=== PATIENT | female | born 1990 | race African-American/Black ===

== ENCOUNTER 2016-09-19 18:34 | Inpatient (IN) | payer MEDICAID ==
[~2016-09-19] VITALS: Ht 162.6 cm; Wt 50.0 kg
[~2016-09-19 18:34] MED LIST: CEPH-460 PO; IBUP-232 PO; NORC5TAB PO
[2016-09-19 18:37] VITALS: BP 100/66; PULSE 99; RESP 20; TEMP 98.1; O2SAT 98
[2016-09-19 18:45] VITALS: BP 112/67; PULSE 98; RESP 20; O2SAT 99
[2016-09-19] MEDS ORDERED: IBUP800T23 PO (18:48)
[2016-09-19] MEDS ORDERED: SODIUM CHLOR 0.9% 1000 ML INJ 1,000 ML IV SCH (19:17)
[2016-09-19] MEDS ORDERED: ONDANSETRON HCL 4 MG/2 ML VIAL IVP ONE (19:30)
[2016-09-19] MEDS ORDERED: MORPHINE SULFATE 8 MG/ML INJ IV PUSH ONE (19:30)
--- NOTE | 2016-09-19 19:41 | PD ---
HPI Chief Complaint: Complaint Time Seen by Provider: 19:15 Travel History International Travel<30 days: No Contact w/Intl Traveler<30days: No Traveled to known affect area: No History of Present Illness HPI Patient's 25-year-old female with a known history of left-sided 1.7 cm left renal calculi and a small bladder stone presenting with left abdominal pain. She states she had a stent placed by a urologist 2008 and form an emergency room and told her that the stent was "broke". She was only seen here in August 27, 2016 and had significant hydronephrosis left kidney and urinalysis suggestive of UTI. She was given ceftriaxone and recommended admission however the patient signed out AMA. She is continue to have pain which has worsened over the last several weeks. She says sometimes there is a "knot" she can palpate in the left abdomen. She has nausea with no vomiting. The pain is in the left flank and radiates down to the pelvis. She endorses hematuria, denies any change in urine stream. She denies any increased urgency or frequency or dysuria. Culture was contaminants, she did finish the Keflex prescribed. She endorses constipation but has had 2 bowel movements today. She denies any fever. Denies vaginal bleeding or discharge. She denies secondary to Depo-Provera. PFSH Past Medical History Arthritis: No Cancer: No Cardiovascular Problems: No Diabetes: No Diminished Hearing: No Endocrine: No Gastrointestinal Disorders: No Genitourinary: Yes (kidney stent, UTI) Immune Disorder: No Implanted Vascular Access Dvce: No Kidney Stones: Yes (HAS A STENT) Musculoskeletal: No Neurologic: No Psychiatric: No Reproductive: No Respiratory: No Seizures: No Thyroid Disease: No Ulcer: No Tetanus Vaccination: < 5 Years Influenza Vaccination: No ?: Not : 5 Para: 4 Miscarriage: 1 : 0 Dilation and Curettage (D&C): Yes Past Surgical History Abdominal Surgery: No Cardiac Surgery: No Ear Surgery: No Endocrine Surgery: No Eye Surgery: No Genitourinary Surgery: Yes (stent kidney 2008) Gynecologic Surgery: Yes Oral Surgery: No Thoracic Surgery: No Other Surgery: Yes (STENT IN LEFT KIDNEY IN 2008) Social History Alcohol Use: No Tobacco Use: Yes (1/2 ppd ) Substance Use: Yes (MARIJUANA ) Allergies-Medications (Allergen,Severity, Reaction): Coded Allergies: [place] (Verified Allergy, Severe, "THROAT SWELLS; DIFFICULTY BREATHING", ) Reported Meds & Prescriptions Reported Meds & Active Scripts Active [place] (Hydrocodone-Acetaminophen) 5-325 mg Tab 1 Tab PO Q6H PRN Reported Ibuprofen 800 Mg Tab 800 Mg PO Q6HR PRN Review of Systems Except as stated in HPI: all other systems reviewed are Neg Physical Exam Narrative GENERAL: Well-developed and well-nourished adult female in no acute distress. SKIN: Warm and dry. Good turgor without tenting. HEAD: Normocephalic and atraumatic. EYES: PERRL bilaterally, 5mm. EOMI bilaterally. No injection or icterus present. No proptosis. Lids without edema or erythema. ENT: Buccal mucosa pink and moist. Oropharynx free of erythema, tonsillar hypertrophy, masses, swelling, asymmetry and exudates. Uvula midline and airway patent. NECK: Supple, no midline tenderness, crepitus or step-offs. Trachea midline, no JVD. No cervical or facial lymphadenopathy. CARDIOVASCULAR: Regular rate and rhythm without murmurs, rubs, clicks or gallops. Radial and posterior tibial pulses 2+ bilaterally. No pedal edema. RESPIRATORY: Clear to auscultation bilaterally with symmetrical rise and fall, no distress or use of accessory muscles. GASTROINTESTINAL: Scaphoid. Moderate pain with palpation of the whole left side abdomen without rebounding or guarding. There is a palpable linear area of induration throughout the mid abdomen on the left. Nonpulsatile. Normal bowel sounds all 4 quadrants. No masses or organomegaly present. Left-sided CVA tenderness. MUSCULOSKELETAL: Patient freely moving all four extremities spontaneously. Extremities without clubbing, cyanosis, or edema. No obvious deformities. NEUROLOGIC: CN II-XII grossly intact. Awake and alert. Motor grossly within normal limits. Normal speech. PSYCHIATRIC: Appropriate mood and affect; insight and judgment normal. Data Data Last Documented VS Vital Signs Date Time Temp Pulse Resp B/P Pulse Ox O2 Delivery O2 Flow Rate FiO2 09/19/16 20:20 65 16 108/74 99 Room Air 09/19/16 18:37 98.1 Orders Ed Urine Pregnancytest Poc (09/19/16 18:55) Complete Blood Count With Diff (09/19/16 19:17) Comprehensive Metabolic Panel (09/19/16 19:17) Lipase (09/19/16 19:17) Prothrombin Time / Inr (Pt) (09/19/16 19:17) Act Partial Throm Time (Ptt) (09/19/16 19:17) Urinalysis - C+S If Indicated (09/19/16 19:17) Ondansetron Inj (Zofran Inj) (09/19/16 19:30) Sodium Chlor 0.9% 1000 Ml Inj (Ns 1000 M (09/19/16 19:17) Morphine Inj (Morphine Inj) (09/19/16 19:30) Ct Abd/Pel W/O Iv Contrast (09/19/16 19:22) Urine Culture (09/19/16 19:25) Ceftriaxone Inj (Rocephin Inj) (09/19/16 20:00) NPO (09/19/16 20:14) Admit To Inpatient (09/19/16 ) Vital Signs (Adult) Q4H (09/19/16 20:43) Activity Oob With Assistance (09/19/16 20:43) ^ Manager Center / Telemetry .CONTINUOUS (09/19/16 20:43) Diet Npo (09/20/16 Breakfast) Sodium Chlor 0.9% 1000 Ml Inj (Ns 1000 M (09/19/16 20:43) Sodium Chloride 0.9% Flush (Ns Flush) (09/19/16 20:45) Sodium Chloride 0.9% Flush (Ns Flush) (09/19/16 21:00) Ondansetron Inj (Zofran Inj) (09/19/16 20:45) Basic Metabolic Panel (Bmp) (09/20/16 06:00) Complete Blood Count With Diff (09/20/16 06:00) Scd Bilateral/Knee High JUAN PABLO.BID (09/19/16 20:43) Naloxone Inj (Narcan Inj) (09/19/16 20:45) Inpatient Certification (09/19/16 ) Morphine Inj (Morphine Inj) (09/19/16 20:45) Admit Order (Ed Use Only) (09/19/16 20:43) Consult Urology (09/19/16 ) Invasive Rad Dept Consult (09/19/16 ) Labs Laboratory Tests Test 09/19/16 19:25 White Blood Count 5.3 TH/MM3 Red Blood Count 4.72 MIL/MM3 Hemoglobin 12.7 GM/DL Hematocrit 39.3 % Mean Corpuscular Volume 83.3 FL Mean Corpuscular Hemoglobin 26.9 PG Mean Corpuscular Hemoglobin 32.3 % Concent Red Cell Distribution Width 17.3 % Platelet Count 242 TH/MM3 Mean Platelet Volume 9.1 FL Neutrophils (%) (Auto) 35.9 % Lymphocytes (%) (Auto) 50.8 % Monocytes (%) (Auto) 8.5 % Eosinophils (%) (Auto) 4.3 % Basophils (%) (Auto) 0.5 % Neutrophils # (Auto) 1.9 TH/MM3 Lymphocytes # (Auto) 2.7 TH/MM3 Monocytes # (Auto) 0.5 TH/MM3 Eosinophils # (Auto) 0.2 TH/MM3 Basophils # (Auto) 0.0 TH/MM3 CBC Comment DIFF FINAL Differential Comment Prothrombin Time 12.0 SEC Prothromb Time International 1.1 RATIO Ratio Activated Partial 27.2 SEC Thromboplast Time Urine Color RED Urine Turbidity CLOUDY Urine pH 6.5 Urine Specific [place] 1.020 Urine Protein 100 mg/dL Urine Glucose (UA) NEG mg/dL Urine Ketones TRACE mg/dL Urine Occult Blood MOD Urine Nitrite NEG Urine Bilirubin NEG Urine Urobilinogen LESS THAN 2.0 MG/DL Urine Leukocyte Esterase LARGE Urine RBC /hpf Urine WBC /hpf Urine WBC Clumps MANY Urine Bacteria OCC /hpf Urine Mucus MANY /lpf Microscopic Urinalysis Comment CULTURE INDICATED Sodium Level 139 MEQ/L Potassium Level 4.1 MEQ/L Chloride Level 108 MEQ/L Carbon Dioxide Level 20.7 MEQ/L Anion Gap 10 MEQ/L Blood Urea Nitrogen 14 MG/DL Creatinine 0.94 MG/DL Estimat Glomerular Filtration 88 ML/MIN Rate Random Glucose 77 MG/DL Calcium Level 8.9 MG/DL Total Bilirubin 0.3 MG/DL Aspartate Amino Transf 11 U/L (AST/SGOT) Alanine Aminotransferase 15 U/L (ALT/SGPT) Alkaline Phosphatase 47 U/L Total Protein 8.4 GM/DL Albumin 4.1 GM/DL Lipase 133 U/L MDM Medical Decision Making Medical Screen Exam Complete: Yes Emergency Medical Condition: Yes Interpretation(s) Laboratory Tests Test 09/19/16 19:25 White Blood Count 5.3 TH/MM3 (4.0-11.0) Red Blood Count 4.72 MIL/MM3 (4.00-5.30) Hemoglobin 12.7 GM/DL (11.6-15.3) Hematocrit 39.3 % (35.0-46.0) Mean Corpuscular Volume 83.3 FL (80.0-100.0) Mean Corpuscular Hemoglobin 26.9 PG (27.0-34.0) Mean Corpuscular Hemoglobin 32.3 % Concent (32.0-36.0) Red Cell Distribution Width 17.3 % (11.6-17.2) Platelet Count 242 TH/MM3 (150-450) Mean Platelet Volume 9.1 FL (7.0-11.0) Neutrophils (%) (Auto) 35.9 % (16.0-70.0) Lymphocytes (%) (Auto) 50.8 % (9.0-44.0) Monocytes (%) (Auto) 8.5 % (0.0-8.0) Eosinophils (%) (Auto) 4.3 % (0.0-4.0) Basophils (%) (Auto) 0.5 % (0.0-2.0) Neutrophils # (Auto) 1.9 TH/MM3 (1.8-7.7) Lymphocytes # (Auto) 2.7 TH/MM3 (1.0-4.8) Monocytes # (Auto) 0.5 TH/MM3 (0-0.9) Eosinophils # (Auto) 0.2 TH/MM3 (0-0.4) Basophils # (Auto) 0.0 TH/MM3 (0-0.2) CBC Comment DIFF FINAL Differential Comment Prothrombin Time 12.0 SEC (9.8-11.6) Prothromb Time International 1.1 RATIO Ratio Activated Partial 27.2 SEC Thromboplast Time (24.3-30.1) Urine Color RED (YELLW/STRAW) Urine Turbidity CLOUDY (CLEAR) Urine pH 6.5 (5.0-8.5) Urine Specific [place] 1.020 (1.002-1.035) Urine Protein 100 mg/dL (NEG-TRACE) Urine Glucose (UA) NEG mg/dL (NEG) Urine Ketones TRACE mg/dL (NEG) Urine Occult Blood MOD (NEG) Urine Nitrite NEG (NEG) Urine Bilirubin NEG (NEG) Urine Urobilinogen LESS THAN 2.0 MG/DL (LESS THAN 2.0) Urine Leukocyte Esterase LARGE (NEG) Urine RBC /hpf (0-3) Urine WBC /hpf (0-5) Urine WBC Clumps MANY (NONE) Urine Bacteria OCC /hpf (NONE) Urine Mucus MANY /lpf (OCC) Microscopic Urinalysis Comment CULTURE INDICATED Sodium Level 139 MEQ/L (136-145) Potassium Level 4.1 MEQ/L (3.5-5.1) Chloride Level 108 MEQ/L (98-107) Carbon Dioxide Level 20.7 MEQ/L (21.0-32.0) Anion Gap 10 MEQ/L (5-15) Blood Urea Nitrogen 14 MG/DL (7-18) Creatinine 0.94 MG/DL (0.50-1.00) Estimat Glomerular Filtration 88 ML/MIN (>89) Rate Random Glucose 77 MG/DL (74-106) Calcium Level 8.9 MG/DL (8.5-10.1) Total Bilirubin 0.3 MG/DL (0.2-1.0) Aspartate Amino Transf 11 U/L (15-37) (AST/SGOT) Alanine Aminotransferase 15 U/L (10-53) (ALT/SGPT) Alkaline Phosphatase 47 U/L (45-117) Total Protein 8.4 GM/DL (6.4-8.2) Albumin 4.1 GM/DL (3.4-5.0) Lipase 133 U/L (73-393) Last 24 hours Impressions Abdomen/Pelvis CT 09/19/161921 Signed Impressions: Service Date/Time: Monday, September 19, 2016 19:35 - CONCLUSION: 1. Severe left hydronephrosis, not new. 2. Large stones of the left renal pelvis and the urinary bladder as above, probably adherent/caked onto the proximal and distal portions of the left ureteral stent. 3. Small nonobstructing stones left lower pole. 4. No evidence of acute obstructive uropathy on the right. 5. Numerous small stones of the gallbladder without evidence of cholecystitis or biliary obstruction. Vincent Sparks MD Differential Diagnosis Hydronephrosis versus pyelonephritis versus abscess versus renal cysts versus medical information officer function Narrative Course Patient's 25-year-old female with history of renal calculi. Stent placement 2008 on the left. She's been having pain and difficulty since beginning of August. Outside emergency department told her the stent was "broke". She was seen here on 03/[address] showed 1.7 cm stone in the left renal pelvis adjacent to the stent but there was significant hydronephrotic sac in the left kidney. There is also a 3 cm stone in the bladder. Patient left AMA has had significant discomfort since, worsening over the last few weeks. She is afebrile and nontoxic. She reports a "knot" in the left side of her abdomen which is palpable. Patient given morphine, Zofran and 1 L normal saline bolus and ordered labs and CT abdomen and pelvis. Urine negative patient is on Depo-Provera. CBC shows WBC of 5.3. Urinalysis shows to be BCs with clumps, large blood and leukocyte esterase. Given ceftriaxone 1 g. Metabolic panel shows chloride 108, bicarbonate 20.7, anion gap 10, creatinine 0.94, protein 8.4. CT shows severe left hydronephrosis and hydroureter. There are large stones left renal pelvis but a 15 x 8 mm. There is a stone in the bladder that is 32 x 17 mm. Call was placed to Dr. Galvin urology who reviewed the scan and states that the parenchyma as a poor appearance and given the amount of time she's had this distended that she needs percutaneous drainage. Patient is made nothing by mouth and ordered the IR consult. Call was placed to Dr. Klein for admission for severe hydronephrosis/instruction and pyelonephritis. Diagnosis Primary Impression: Hydronephrosis of left kidney Additional Impression: Pyelonephritis Admitting Information Admitting Physician Requests: Admit Condition: Stable Vincent Martin III Sep 19, 2016 19:41
[2016-09-19 19:47] LABS: AUTOMATED NEUTROPHIL # 1.9 TH/MM3 (1.8-7.7); BASOPHIL % 0.5 % (0.0-2.0); EOSINOPHIL # 0.2 TH/MM3 (0-0.4); EOSINOPHIL % 4.3 % (0.0-4.0); HEMATOCRIT 39.3 % (35.0-46.0); HEMO FLAGS DIFF FINAL; LYMPH % 50.8 % (9.0-44.0); LYMPHOCYTE # 2.7 TH/MM3 (1.0-4.8); MEAN CELL VOLUME 83.3 FL (80.0-100.0); MEAN CORPUSCULAR HEMOGLOBIN 26.9 PG (27.0-34.0); MEAN CORPUSCULAR HGB CONC 32.3 % (32.0-36.0); MONO % 8.5 % (0.0-8.0); NEUT % 35.9 % (16.0-70.0); PLATELET COUNT 242 TH/MM3 (150-450); RED BLOOD COUNT 4.72 MIL/MM3 (4.00-5.30); RED CELL DISTRIBUTION WIDTH 17.3 % (11.6-17.2); WHITE BLOOD COUNT 5.3 TH/MM3 (4.0-11.0)
[2016-09-19 19:48] LABS: BACTERIA, URINE OCC /hpf; BLOOD, URINE MOD (NEG); COMMENT (UR) CULTURE INDICATED; CULTURE IF INDICATED CULTURE INDICATED; GLUCOSE,URINE NEG (NEG); KETONE, URINE TRACE mg/dL (NEG); MUCUS URINE MANY /lpf (OCC); NITRITE,URINE NEG (NEG); PH, URINE 6.5 (5.0-8.5)
[2016-09-19 19:49] LABS: URINE COLOR RED (YELLW/STRAW)
[2016-09-19 19:55] LABS: APTT (PATIENT) 27.2 SEC (24.3-30.1); INTERNATIONAL NORMALIZED RATIO 1.1 RATIO
--- NOTE | 2016-09-19 19:57 | RADRPT ---
EXAM DATE/TIME: 09/19/2016 19:35 [facility] COMPARISON: CT ABDOMEN & PELVIS W/O CONTRAST, August 27, 2016, 22:17. INDICATIONS : Left-sided flank pain. ORAL CONTRAST: No oral contrast ingested. RADIATION DOSE: 2.82 CTDIvol (mGy) MEDICAL HISTORY : Renal calculi. SURGICAL HISTORY : Left renal stent. ENCOUNTER: Initial ACUITY: 1 day PAIN SCALE: 7/10 LOCATION: Left flank TECHNIQUE: Volumetric scanning of the abdomen and pelvis was performed. Using automated exposure control and ad justment of the mA and/or kV according to patient size, radiation dose was kept as low as reasonably achievable to obtain optimal diagnostic quality images. FINDINGS: There is severe but not significantly changed left hydronephrosis and hydroureter. A left ureteral st ent is present. There are calcifications in the renal pelvis and in the urinary bladder that are prob ably adherent to the pigtail portions of the stent. The renal pelvis calculus is about 8 x 15 mm. The urinary bladder calculus is about 17 x 32 mm. There is an approximately 6 mm stone or conglomerate o f tiny stones in the lower pole of the left kidney. Numerous gravel like stones are again seen in the gallbladder. No duct stone or ductal dilatation. No inflammatory changes. Noncontrast appearance of the liver, spleen, pancreas, adrenal glands and right kidney within normal limits. No obstruction or acute inflammatory changes are seen in the gastrointestinal tract. Visualized lung bases are clear. CONCLUSION: 1. Severe left hydronephrosis, not new. 2. Large stones of the left renal pelvis and the urinary bladder as above, probably adherent/caked on to the proximal and distal portions of the left ureteral stent. 3. Small nonobstructing stones left lower pole. 4. No evidence of acute obstructive uropathy on the right. 5. Numerous small stones of the gallbladder without evidence of cholecystitis or biliary obstruction. Vincent Sparks MD on September 19, 2016 at 19:52 Board Certified Radiologist. This report was verified electronically.
[2016-09-19] MEDS ORDERED: cefTRIAXone INJ 1,000 MG in SODIUM CHLORIDE 0.9% INJ 100 ML IV ONE (20:00)
[2016-09-19 20:08] LABS: ANION GAP 10 MEQ/L (5-15); AST (GOT) 11 U/L (15-37); BICARBONATE 20.7 MEQ/L (21.0-32.0); BLOOD UREA NITROGEN 14 MG/DL (7-18); CHLORIDE 108 MEQ/L (98-107); GLOMERULAR FILTRATION RATE 88 ML/MIN (>89); POTASSIUM 4.1 MEQ/L (3.5-5.1); SODIUM (NA) 139 MEQ/L (136-145)
[2016-09-19 20:12] LABS: ALKALINE PHOSPHATASE 47 U/L (45-117); ALT (GPT) 15 U/L (10-53); TOTAL BILIRUBIN ADULT 0.3 MG/DL (0.2-1.0)
[2016-09-19 20:20] VITALS: BP 108/74; PULSE 65; RESP 16; O2SAT 99
[2016-09-19] MEDS ORDERED: NALOXONE HCL 0.4 MG/ML AMP IV PRN (20:45)
[2016-09-19] MEDS ORDERED: SODIUM CHLORIDE 0.9% FLUSH 5 ML FLUSH FLUSH PRN (20:45)
[2016-09-19] MEDS: SODIUM CHLORIDE 0.9% FLUSH 5 ML FLUSH FLUSH SCH (21:00)
[2016-09-19] MEDS: MORPHINE SULFATE 4 MG/ML INJ IV PUSH PRN (21:13)
[2016-09-19] MEDS: SODIUM CHLOR 0.9% 1000 ML INJ 1,000 ML IV SCH (21:13)
[2016-09-19] MEDS: LEVOFLOXACIN 750 MG PREMIX INJ 150 ML IV SCH (21:14)
[2016-09-19 22:56] VITALS: BP 98/75; PULSE 75; RESP 20; TEMP 98.7; O2SAT 100
[2016-09-19 23:01] VITALS: BP 105/66
[2016-09-19 23:34] VITALS: PULSE 68
[2016-09-19] MEDS ORDERED: ACETAMINOPHEN 325 MG TAB PO PRN (23:45)
[2016-09-20] VITALS (12 sets, daily range): BP systolic 96–129; BP diastolic 58–81; PULSE 58–86; RESP 16–20; TEMP 96.3–98.3; O2SAT 92–100
--- NOTE | 2016-09-20 01:09 | HHI.HP ---
[facility] Service [facility] Primary Care Physician Minh Flores M.D. Admission Diagnosis HYDRONEPHROSIS/OBSTRUCTION, PYELONEPHRITIS Diagnoses: Travel History International Travel<30 Days: No Contact w/Intl Traveler <30 Da: No Traveled to Known Affected Are: No History of Present Illness History taken from patient and ED physician. 25 y/o female with a history a kidney stones, stents and hydronephrosis presented to the ED with complaints of hematuria, and abdominal pain. Patient states in 2008 she had a ureteral stent placed and did not follow up out patient due to lack of insurance. She states in June she begin having abdominal pain and UTIs, she was seen in the ED on 08/27/16 and was diagnosed with a UTI and hydronephrosis. 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 Today she came in with increasing sharp LLQ abdominal pain with radiation to the back with associated nausea and hematuria. She denies any chest pain, shortness of breath, fever or chills. She does state that she has had a weight loss of 30 pounds over the last 6 months. She denies any palpitations, but does feel that she cannot swallow her food properly sometimes. She states she does not recall ever having her thyroid checked, or being told it was abnormal. She currently does not have a PCP. Review of Systems Constitutional: COMPLAINS OF: Weight loss, DENIES: Fever, Chills Endocrine: DENIES: Heat/cold intolerance Ears, nose, mouth, throat: COMPLAINS OF: Throat pain Respiratory: DENIES: Cough, Hemoptysis, Sputum production, Shortness of breath Cardiovascular: DENIES: Chest pain, Palpitations, Lower Extremity Edema Gastrointestinal: COMPLAINS OF: Abdominal pain, Constipation, Nausea, DENIES: Diarrhea, Vomiting Genitourinary: COMPLAINS OF: Hematuria, DENIES: Urgency, Dysuria Musculoskeletal: COMPLAINS OF: Back pain, DENIES: Neck pain Integumentary: DENIES: Rash Hematologic/lymphatic: DENIES: Lymphadenopathy Immunologic/allergic: DENIES: Urticaria Neurologic: DENIES: Headache, Localized weakness Past Family Social History Past Medical History Hydronephrosis Kidney stones Past Surgical History ureteral stent 2008 Reported Medications Reported Meds & Active Scripts Active [place] (Hydrocodone-Acetaminophen) 5-325 mg Tab 1 Tab PO Q6H PRN Reported Ibuprofen 800 Mg Tab 800 Mg PO Q6HR PRN Allergies: Coded Allergies: [place] (Verified Allergy, Severe, "THROAT SWELLS; DIFFICULTY BREATHING", ) Active Ordered Medications Current Medications Medications (Trade) Dose Ordered Sig/Dennise Route Start Time Stop Time Status Last Admin (NS 1000 ml Inj) 1,000 ml @ 100 mls/hr Q10H IV 09/19/16 20:43 09/19/16 21:13 (NS Flush) 2 ml UNSCH PRN FLUSH 09/19/16 20:45 (NS Flush) 2 ml BID FLUSH 09/19/16 21:00 (Zofran Inj) 4 mg Q6H PRN IVP 09/19/16 20:45 (Narcan Inj) 0.4 mg UNSCH PRN IV 09/19/16 20:45 Morphine Sulfate 2 mg 2 mg Q3H PRN IV PUSH 09/19/16 20:45 09/19/16 21:13 (Levaquin 750 Mg Premix Inj) 150 ml @ 100 mls/hr Q24H IV 09/19/16 21:00 09/19/16 21:14 (Tylenol) 650 mg Q6HR PRN PO 09/19/16 23:45 09/19/16 23:44 (Flu (Quadrivalent) Vaccine Inj) 0.5 ml ONCE ONCE IM 09/20/16 09:00 09/20/16 09:01 Family History Family history significant for breast cancer, an unknown cancer, and HTN Social History Tobacco use: 1/2 PPD Alcohol use: denies Illcit drug use: denies Physical Exam Vital Signs Vital Signs Date Time Temp Pulse Resp B/P Pulse Ox O2 Delivery O2 Flow Rate FiO2 09/19/16 23:34 68 09/19/16 23:11 16 09/19/16 23:01 80 16 105/66 100 09/19/16 22:56 98.7 75 20 98/75 100 09/19/16 20:20 65 16 108/74 99 Room Air 09/19/16 18:45 82 20 1/16/17 18:45 98 20 112/67 99 Room Air 09/19/16 18:37 98.1 99 20 100/66 98 Room Air Physical Exam GENERAL: This is a well-nourished, well-developed patient, in no apparent distress. SKIN: No rashes, ecchymoses or lesions. Cool and dry. HEAD: Atraumatic. Normocephalic. No temporal or scalp tenderness. EYES: Pupils equal round and reactive. ENT: Nose without bleeding, purulent drainage or septal hematoma. Airway patent. NECK: Trachea midline. No JVD CARDIOVASCULAR: Regular rate and rhythm without murmurs, gallops, or rubs. RESPIRATORY: Clear to auscultation. Breath sounds equal bilaterally. No wheezes , rales, or rhonchi. GASTROINTESTINAL: Abdomen soft, left lower quadrant tenderness, nondistended. No hepato-splenomegaly, or palpable masses. No guarding. MUSCULOSKELETAL: Extremities without clubbing, cyanosis, or edema. No joint tenderness, effusion, or edema noted. No calf tenderness. NEUROLOGICAL: Awake and alert. Motor and sensory grossly within normal limits. Normal speech. Laboratory Laboratory Tests Test 09/19/16 19:25 White Blood Count 5.3 Red Blood Count 4.72 Hemoglobin 12.7 Hematocrit 39.3 Mean Corpuscular Volume 83.3 Mean Corpuscular Hemoglobin 26.9 Mean Corpuscular Hemoglobin 32.3 Concent Red Cell Distribution Width 17.3 Platelet Count 242 Mean Platelet Volume 9.1 Neutrophils (%) (Auto) 35.9 Lymphocytes (%) (Auto) 50.8 Monocytes (%) (Auto) 8.5 Eosinophils (%) (Auto) 4.3 Basophils (%) (Auto) 0.5 Neutrophils # (Auto) 1.9 Lymphocytes # (Auto) 2.7 Monocytes # (Auto) 0.5 Eosinophils # (Auto) 0.2 Basophils # (Auto) 0.0 CBC Comment DIFF FINAL Differential Comment Prothrombin Time 12.0 Prothromb Time International 1.1 Ratio Activated Partial 27.2 Thromboplast Time Urine Color RED Urine Turbidity CLOUDY Urine pH 6.5 Urine Specific [place] 1.020 Urine Protein 100 Urine Glucose (UA) NEG Urine Ketones TRACE Urine Occult Blood MOD Urine Nitrite NEG Urine Bilirubin NEG Urine Urobilinogen LESS THAN 2.0 Urine Leukocyte Esterase LARGE Urine RBC Urine WBC Urine WBC Clumps MANY Urine Bacteria OCC Urine Mucus MANY Microscopic Urinalysis Comment CULTURE INDICATED Sodium Level 139 Potassium Level 4.1 Chloride Level 108 Carbon Dioxide Level 20.7 Anion Gap 10 Blood Urea Nitrogen 14 Creatinine 0.94 Estimat Glomerular Filtration 88 Rate Random Glucose 77 Calcium Level 8.9 Total Bilirubin 0.3 Aspartate Amino Transf 11 (AST/SGOT) Alanine Aminotransferase 15 (ALT/SGPT) Alkaline Phosphatase 47 Total Protein 8.4 Albumin 4.1 Lipase 133 Date/Time Procedure Status Source Growth 09/19/16 19:25 Urine Culture Received Urine Clean Catch Pending Result Diagram: 09/19/16192409/19/161924 Imaging Last Impressions Abdomen/Pelvis CT 09/19/161921 Signed Impressions: Service Date/Time: Monday, September 19, 2016 19:35 - CONCLUSION: 1. Severe left hydronephrosis, not new. 2. Large stones of the left renal pelvis and the urinary bladder as above, probably adherent/caked onto the proximal and distal portions of the left ureteral stent. 3. Small nonobstructing stones left lower pole. 4. No evidence of acute obstructive uropathy on the right. 5. Numerous small stones of the gallbladder without evidence of cholecystitis or biliary obstruction. Vincent Sparks MD Assessment and Plan Problem List: (1) Hydronephrosis of left kidney ICD Code: N13.30 Status: Acute (2) Pyelonephritis ICD Code: N12 Status: Acute (3) Weight loss ICD Code: R63.4 Status: Acute Assessment and Plan 25 y/o male with a history of hydronephrosis presented with: Hydronephrosis of left kidney Images: ABD CT shows severe left hydronephrosis, not new. Large stones of the left renal pelvis and the urinary bladder as above, probably adherent/caked onto the proximal and distal portions of the left ureteral stent. Small nonobstructing stones left lower pole. Numerous small stones of the gallbladder without evidence of cholecystitis or biliary obstruction. -Consult placed to DR. Galvin, per Dr. Galvin IR was consulted for nephrostomy tube - Supportive IVF/ NPO -antiemetics as needed Pyelonephritis Labs: UA shows large leukocyte esterase -Urine culture pending -Levofloxacin IV Weight loss, 30 lbs in 6 months -TSH .24, T3 and T4 pending -US Thyroid ordered DVT prophylaxis: SCDs Written by Dayan CASTRO, acting as scribe for Dr. Klein on 09/20/16 at 0205. The documentation accurately reflects the work performed [id number] and decisions made by me and the physician Dr Klein on 09/20/16. The documentation accurately reflects the work performed [id number] by me on at 0205 Discussed Condition With Patient and ED physician Physician Certification 2 Midnight Certification Type: Admission for Inpatient Services Order for Inpatient Services The services are ordered in accordance with Medicare regulations or non- Medicare payer requirements, as applicable. In the case of services not specified as inpatient-only, they are appropriately provided as inpatient services in accordance with the 2-midnight benchmark. Estimated LOS (days): 3 days is the estimated time the patient will need to remain in the hospital, assuming treatment plan goals are met and no additional complications. Post-Hospital Plan: [place] Dayan Miles Sep 20, 2016 01:09 Ajith Klein MD Sep 27, 2016 20:29
[2016-09-20] MEDS: MORPHINE SULFATE 4 MG/ML INJ IV PUSH PRN ×4 (01:10→13:30)
[2016-09-20] MEDS ORDERED: TEMAZEPAM 7.5 MG CAP PO ONE (02:15)
[2016-09-20 04:18] LABS: BASOPHIL % 0.5 % (0.0-2.0); EOSINOPHIL # 0.3 TH/MM3 (0-0.4); EOSINOPHIL % 5.1 % (0.0-4.0); HEMATOCRIT 32.9 % (35.0-46.0); LYMPH % 64.9 % (9.0-44.0); LYMPHOCYTE # 3.2 TH/MM3 (1.0-4.8); MEAN CELL VOLUME 83.4 FL (80.0-100.0); MEAN CORPUSCULAR HEMOGLOBIN 26.8 PG (27.0-34.0); MEAN CORPUSCULAR HGB CONC 32.2 % (32.0-36.0); MONO % 10.2 % (0.0-8.0); NEUT % 19.3 % (16.0-70.0); PLATELET COUNT 199 TH/MM3 (150-450); RED BLOOD COUNT 3.94 MIL/MM3 (4.00-5.30)
[2016-09-20 04:24] LABS: HEMO FLAGS AUTO DIFF
[2016-09-20 04:33] LABS: BICARBONATE 20.8 MEQ/L (21.0-32.0); POTASSIUM 3.6 MEQ/L (3.5-5.1)
[2016-09-20 06:57] LABS: BASOPHILS 1 % (0-2); EOSINOPHILS 4 % (0-4); NEUTROPHIL # MANUAL DIFF 0.9 TH/MM3 (1.8-7.7); POLYS (SEG NEUTROPHILS) 18 % (16-70); WBC DIFF SAMPLE 100
[2016-09-20 06:58] LABS: ACANTHOCYTES OCC (NORMAL); PLATELET ESTIMATE SMEAR NORMAL (NORMAL); PLATELET MORPHOLOGY NORMAL (NORMAL); SCAN/DIFF FINAL DIFF MANUAL
[2016-09-20] MEDS: SODIUM CHLORIDE 0.9% FLUSH 5 ML FLUSH FLUSH SCH ×2 (08:07→20:23)
[2016-09-20] MEDS: SODIUM CHLOR 0.9% 1000 ML INJ 1,000 ML IV SCH ×2 (08:07→16:43)
[2016-09-20] MEDS ORDERED: INFLUENZA VIRUS VACCINE (QUADRIVALENT) 0.5 ML SYR IM ONE (09:00)
[2016-09-20] MEDS ORDERED: MIDAZOLAM HCL 5 MG/5 ML VIAL ONE (09:59)
[2016-09-20] MEDS ORDERED: fentaNYL CITRATE 250 MCG/5 ML AMP ONE (10:00)
[2016-09-20] MEDS ORDERED: IOHEXOL 350 MG/ML 50 ML BTL (for RAD DIAG) ONE (10:50)
--- NOTE | 2016-09-20 11:19 | PD.RAD ---
Post Procedure Progress Note Pre Procedure Diagnosis: (1) Hydronephrosis of left kidney Post Procedure Diagnosis: (1) Hydronephrosis of left kidney Procedure Date: Sep 20, 2016 Supervising Radiologist: Mikhail Taylor Assisting Radiologist: Qasim Mata MD Proceduralist/Assist: Romel Ford, RT(R), RT Jordon(R) Anesthesia: Conscious Sedation Plan of Activity Patient to Unit: ROPU Patient Condition: Good See PACS Report for procedural detail/treatment Drainage Procedure Procedure 1 Imaging Guidance: Fluoroscopy Procedure Type: Nephrostomy Procedure: Placement Drainage: [place] drainage Fluid Description: Cloudy Mikhail Taylor MD Sep 20, 2016 11:19
--- NOTE | 2016-09-20 11:45 | RADRPT ---
EXAM DATE/TIME: 09/20/2016 09:12 [facility] COMPARISON: No previous studies available for comparison. INDICATIONS : Palpable mass. MEDICAL HISTORY : Abdominal pain. Nausea. Hematuria. UTI. SURGICAL HISTORY : Dilation and curettage. Renal stent, left. ENCOUNTER: Initial ACUITY: 1 day PAIN SCORE: 1/10 LOCATION: Bilateral neck MEASUREMENTS: RIGHT LOBE: 1.4 x 1.5 x 5.7 cm LEFT LOBE: 1.7 x 1.4 x 4.4 cm FINDINGS: The isthmus is normal in size. The left lobe is unremarkable. There is a single nodule in the right l obe of thyroid measuring 10 mm x 7 mm. CONCLUSION: 1. 10 mm nodule right lobe of the thyroid. Radionuclide imaging is recommended for further evaluation if clinically indicated. Mikhail Taylor MD on September 20, 2016 at 11:42 Board Certified Radiologist. This report was verified electronically.
--- NOTE | 2016-09-20 12:23 | MB ---
cc: JESSE DOHERTY Corrected Copy: 10/19/16 DATE OF CONSULTATION 09/20/2016 HISTORY OF PRESENT ILLNESS This is a 25-year-old female with a history of stones involving the left kidney. Back in 2008 she underwent stent placement for stones and was lost to followup. The stents have been in since 2008. She has developed stones both at the lower end of the stent in the bladder which is approximately a 2-cm bladder stone and the stone at the UPJ encrusted around the stent is which is approximately 8-9 mm in size. She has severe hydronephrosis of the left kidney and it seems that there is parenchymal atrophy noted due to a long-term obstruction. She presented because she was having a sharp left lower quadrant pain radiating to the back associated with some nausea and hematuria. She denies any fever or chills. She does state she had a 30-pound weight loss over the last six months. PAST MEDICAL HISTORY Her medical history includes kidney stones involving the left kidney with hydronephrosis. PAST SURGICAL HISTORY Notable for cystoscopy with left double-J stent placement back in 2008. ALLERGIES She is allergic to peach. MEDICATIONS She is currently taking [place] for pain at present and took Motrin approximately one week ago. FAMILY HISTORY Noted for breast cancer and high blood pressure. SOCIAL HISTORY One-half pack per day smoker, but denies alcohol or drug use. REVIEW OF SYSTEMS She notes abdominal pain. Notes hematuria and associated nausea. Denies chest pain, shortness of breath, gait disturbances bleeding disorders, psychiatric problems, heat or cold tolerance. All other systems are negative. PHYSICAL EXAMINATION PRESENT VITALS: Temperature 96.3, heart rate 68, respiratory rate 18, 104/66 is her blood pressure. GENERAL: She is a well-developed, well-nourished 25-year-old female in no acute distress. HEENT: Normocephalic, atraumatic. Pupils equal, round, react to light. Extraocular movements intact. NECK: Supple. HEART: Regular rate and rhythm. LUNGS: Clear. ABDOMEN: Soft. There is some left lower quadrant tenderness and left CVA tenderness noted. EXTREMITIES: No cyanosis, clubbing or edema. LABORATORY DATA White count 5.0, hemoglobin 10.6, hematocrit 32.9, platelet count of 199. Sodium 141, potassium 3.6, chloride 113, CO2 20.8, BUN of 12, creatinine 0.7, glucose is 78. PT is 12.0, INR is 1.1, PTT is 27.2. Urinalysis shows large leukocyte esterase; many red and white cells are noted. IMAGING STUDIES Severe left hydronephrosis, large stones in the left renal pelvis and the urinary bladder which appear to be encrusted. Small nonobstructing stones are noted in the left lower pole. The right kidney is within normal limits. ASSESSMENT A 25-year-old female with encrusted left ureteral stent since 2008 with a large bladder stone and a large stone at the UPJ. PLAN The patient will require left percutaneous nephrostomy tube placement. This will have to remain in for six weeks and then we will repeat with a renal scan to evaluate function of that left kidney. At that time it will be determined if it would be feasible to save the kidney by removing the stones or removing the kidney in its entirety if the function is less than 20%. This was discussed with the patient and she is willing to proceed with having a left percutaneous tube placed. Thank you for the consult and allowing me to participate in the care this patient. Jesse PAZ/DUANE /8:45 AM /2:55 PM
--- NOTE | 2016-09-20 15:23 | RADRPT ---
EXAM DATE/TIME: 09/20/2016 10:09 [facility] COMPARISON: No previous studies available for comparison. INDICATIONS : Patient with history of hydronephrosis in need of nephrostomy catheter placement. MEDICAL HISTORY : Kidney stones, Hematuria, Hydronephrosis SURGICAL HISTORY : Ureteral stent 2008 ENCOUNTER: Initial ACUITY: 3 weeks PAIN SCORE: 0/10 FLUORO TIME: 2.3 minutes SEDATION TIME: 30 minutes CONTRAST: 20 cc Omnipaque (iohexol) 350 MEDICATION(S): 1.) 3.5 mg midazolam (Versed) IV 2.) 200 mcg fentanyl (Sublimaze) IV DEVICE(S): 1.) 8 [place] [id number] nephrostomy catheter PROCEDURE : 1. Ultrasound-guided puncture of the kidney. 2. Antegrade percutaneous pyelogram. 3. Percutaneous nephrostomy placement. 4. Conscious sedation with continuous EKG and oximetry monitoring. The risks, benefits and alternatives to the procedure were explained and verbal and written consent w as obtained. The site was prepped in sterile fashion. Full sterile technique was used, including ca p, mask, sterile gloves and gown and a large sterile sheet. Hand hygiene and 2% chlorhexidine and/or betadine/alcohol prep was utilized per protocol for cutaneous antisepsis. The skin and subcutaneous tissues were infiltrated with local anesthetic solution. With ultrasound and fluoroscopic guidance the selected kidney was punctured and a percutaneous antegr shantanu pyelogram was performed demonstrating a dilated collecting system. Serial dilatation was perform ed and a prescribed nephrostomy tube was placed within the renal pelvis and sutured in place. Radiographs demonstrate markedly dilated renal pelvis with severe caliectasis. Cloudy urine was retur liliana at the time of placement of the catheter. A double-J stent is in place which is incorporated with a calcified stone in the right renal pelvis as well as encrusted in the bladder. Conscious sedation was performed with the prescribed dosages and duration as above. The patient tole rated the procedure well and there were no complications. EKG and oximetry remained stable throughou t the procedure. The patient was sent to post anesthesia recovery in stable condition. CONCLUSION: Uncomplicated nephrostomy tube placement as above. Mikhail Taylor MD on September 20, 2016 at 15:20 Board Certified Radiologist. This report was verified electronically.
[2016-09-20] MEDS ORDERED: ACETAMINOPHEN/HYDROcodone 325 MG/10 MG TAB PO PRN (16:00)
[2016-09-20] MEDS: ONDANSETRON HCL 4 MG/2 ML VIAL IVP PRN ×2 (16:00→22:15)
[2016-09-20] MEDS: HYDROmorphone HCL PF 1 MG/ML VIAL IV PUSH PRN ×3 (16:01→22:15)
--- NOTE | 2016-09-20 18:47 | HHI.FF ---
Face to Face Verification Diagnosis: (1) Nephrolithiasis (2) Hydronephrosis of left kidney Home Health Nursing Order: Medical education Signs/symptoms of disease process Wound care and dressing changes Nursing assessment with vital signs I have seen patient Lacie Ceballos on 09/20/16. My clinical findings support the need for the requested home health care services because: Ltd mobility - disease progression I certify that my clinical findings support that this patient is homebound because: Post-op weakness Virginia Lemus MD Sep 20, 2016 18:47
[2016-09-20] MEDS: LEVOFLOXACIN 750 MG PREMIX INJ 150 ML IV SCH (20:23)
[2016-09-20 23:09] LABS: AMPHETAMINE, URINE NEG (NEG); BARBITURATES, URINE NEG (NEG); COCAINE, URINE NEG (NEG)
[2016-09-21] MEDS: HYDROmorphone HCL PF 1 MG/ML VIAL IV PUSH PRN ×6 (01:49→21:04)
[2016-09-21 05:22] VITALS: BP 99/60; PULSE 89; RESP 18; TEMP 99.4; O2SAT 100
[2016-09-21] MEDS: SODIUM CHLOR 0.9% 1000 ML INJ 1,000 ML IV SCH ×3 (05:55→23:27)
[2016-09-21] MEDS: ONDANSETRON HCL 4 MG/2 ML VIAL IVP PRN (05:55)
[2016-09-21] MEDS: SODIUM CHLORIDE 0.9% FLUSH 5 ML FLUSH FLUSH SCH ×2 (07:02→20:59)
--- NOTE | 2016-09-21 07:49 | HHI.PR ---
Subjective Remarks Pt feels well s/p left PCNT placement yesterday. No complaints. Objective Vital Signs Vital Signs Date Time Temp Pulse Resp B/P Pulse Ox O2 Delivery O2 Flow Rate FiO2 09/21/16 06:28 16 09/21/16 05:22 99.4 89 18 99/60 100 09/20/16 23:31 98.2 84 18 110/64 99 09/20/16 22:55 86 09/20/16 20:28 98.3 84 18 113/66 97 09/20/16 16:13 97.5 75 16 112/71 97 09/20/16 13:00 65 116/68 09/20/16 12:30 58 18 114/69 96 09/20/16 12:00 58 18 119/67 96 09/20/16 11:30 61 18 129/81 95 09/20/16 11:00 69 16 109/66 95 09/20/16 10:45 98.3 67 16 96/58 92 09/20/16 08:00 80 09/20/16 08:00 96.3 68 18 104/66 99 I/O 09/20/16 09/20/16 09/20/16 09/21/16 09/21/16 09/21/16 07:00 15:00 23:00 07:00 15:00 23:00 Output Total 600 ml 500 ml 250 ml Balance -600 ml -500 ml -250 ml Output Urine Total 600 ml 200 ml 250 ml Drainage Total 300 ml Result Diagram: 09/20/16 03309/20/16 033 Objective Remarks Abd:soft,nt,nd Left PCNT: urine clear with moderate output. Assessment and Plan Assessment and Plan Stable s/p Left PCNT placement yesterday. Stable for discharge. Will need to f/u in office in 1-2 weeks to schedule surgery to remove stent and evaluate function of left kidney. Erick Galvin DO Sep 21, 2016 07:49
--- NOTE | 2016-09-21 08:05 | HHI.PR ---
Subjective Remarks awake and alert appears comfortable discussed with her discharge plans and ff up no nausea or vomiting, no dysuria nepjrostomy tube draining clear urine Objective Vitals Vital Signs Date Time Temp Pulse Resp B/P Pulse Ox O2 Delivery O2 Flow Rate FiO2 09/21/16 06:28 16 09/21/16 05:22 99.4 89 18 99/60 100 09/20/16 23:31 98.2 84 18 110/64 99 09/20/16 22:55 86 09/20/16 20:28 98.3 84 18 113/66 97 09/20/16 16:13 97.5 75 16 112/71 97 09/20/16 13:00 65 116/68 09/20/16 12:30 58 18 114/69 96 09/20/16 12:00 58 18 119/67 96 09/20/16 11:30 61 18 129/81 95 09/20/16 11:00 69 16 109/66 95 09/20/16 10:45 98.3 67 16 96/58 92 I/O 09/20/16 09/20/16 09/20/16 09/21/16 09/21/16 09/21/16 07:00 15:00 23:00 07:00 15:00 23:00 Output Total 600 ml 500 ml 250 ml Balance -600 ml -500 ml -250 ml Output Urine Total 600 ml 200 ml 250 ml Drainage Total 300 ml Result Diagram: 09/20/16 0331 09/20/16 0331 Imaging Last Impressions Nephrostomy 09/20/162128 Signed Impressions: Service Date/Time: Tuesday, September 20, 2016 10:09 - CONCLUSION: Uncomplicated nephrostomy tube placement as above. Mikhail Taylor MD Thyroid Ultrasound 09/20/16 0000 Signed Impressions: Service Date/Time: Tuesday, September 20, 2016 09:12 - CONCLUSION: 1. 10 mm nodule right lobe of the thyroid. Radionuclide imaging is recommended for further evaluation if clinically indicated. Mikhail Taylor MD Abdomen/Pelvis CT 09/19/[id number] Signed Impressions: Service Date/Time: Monday, September 19, 2016 19:35 - CONCLUSION: 1. Severe left hydronephrosis, not new. 2. Large stones of the left renal pelvis and the urinary bladder as above, probably adherent/caked onto the proximal and distal portions of the left ureteral stent. 3. Small nonobstructing stones left lower pole. 4. No evidence of acute obstructive uropathy on the right. 5. Numerous small stones of the gallbladder without evidence of cholecystitis or biliary obstruction. Vincent Sparks MD Objective Remarks awake and alert, oriented x 3 anicteric lungs clear regular rhythm abdomen soft, nontender, left with nephrostomy tube in place extremities no edema Procedures 09/20- nephrostomy tube placement/stent placement A/P Problem List: (1) Hydronephrosis of left kidney ICD Code: N13.30 Status: Acute (2) Pyelonephritis ICD Code: N12 Status: Acute (3) Weight loss ICD Code: R63.4 Status: Acute Assessment and Plan 25 y/o male with a history of hydronephrosis presented with: Hydronephrosis of left kidney S/P PCN nephrostomy tube placement by IR Images: ABD CT shows severe left hydronephrosis, not new. Large stones of the left renal pelvis and the urinary bladder as above, probably adherent/caked onto the proximal and distal portions of the left ureteral stent. Small nonobstructing stones left lower pole. Numerous small stones of the gallbladder without evidence of cholecystitis or biliary obstruction. - cleared for DC by Urology- Dr. Erick Galvin- ff up in 1 week Pyelonephritis Labs: UA shows large leukocyte esterase -Urine culture - NGTD -will DC on po Levaquin Weight loss - TFTS suggestive of SES - recheck TFT in 6-8 weeks c/o PCP -advise on diet and substance - ff up with PCP DC home today - CM consult for Home health care nursing visits for nephrostomy tube care instructions - bedside nephrostomy tube care given by staff nurse diet as tolerated activity regular Medication- Levofloxacin 500 mg po daily x 5 days Percocet 10/325 mg 1 tab po q 6 prn for pain FF up with Dr. Galvin- Urology in 1 week FF up with PCP - advise to set up with one Virginia Lemus MD Sep 21, 2016 08:05
[2016-09-21] MEDS ORDERED: OXYC1TAB36 PO (08:17)
[2016-09-21] MEDS ORDERED: LEVO500T3 PO (08:18)
[2016-09-21 08:21] VITALS: BP 96/66; PULSE 81; RESP 16; TEMP 98.1; O2SAT 97
[2016-09-21 16:38] VITALS: BP 124/77; PULSE 71; RESP 18; TEMP 98.1; O2SAT 99
[2016-09-21 20:11] VITALS: PULSE 72
[2016-09-21 20:18] VITALS: BP 116/77; PULSE 83; RESP 20; TEMP 97.6; O2SAT 99
[2016-09-21] MEDS: LEVOFLOXACIN 750 MG PREMIX INJ 150 ML IV SCH (20:59)
[2016-09-21] MEDS ORDERED: diphenhydrAMINE HCL 25 MG CAP PO ONE (23:00)
[2016-09-22 00:30] VITALS: BP 116/72; PULSE 74; RESP 16; TEMP 98.3; O2SAT 100
[2016-09-22] MEDS: oxyCODONE/ACETAMINOPHEN 10 MG/325 MG TAB PO PRN ×2 (01:13→09:30)
[2016-09-22 05:00] VITALS: BP 103/65; PULSE 77; RESP 16; TEMP 97.9; O2SAT 99
[2016-09-22] MEDS: SODIUM CHLORIDE 0.9% FLUSH 5 ML FLUSH FLUSH SCH (07:56)
[2016-09-22 08:00] VITALS: PULSE 75
[2016-09-22] MEDS ORDERED: HYDROmorphone HCL PF 1 MG/ML VIAL IV PUSH PRN (08:00)
--- NOTE | 2016-09-22 08:31 | HHI.PR ---
Subjective Remarks no complains overnight except for flank pain relieved with pain meds no nausea or vomiting + flatus Objective Vitals Vital Signs Date Time Temp Pulse Resp B/P Pulse Ox O2 Delivery O2 Flow Rate FiO2 09/22/16 05:00 97.9 77 16 103/65 99 09/22/16 02:15 20 09/22/16 00:30 98.3 74 16 116/72 100 09/21/16 21:35 21 09/21/16 20:18 97.6 83 20 116/77 99 09/21/16 20:11 72 09/21/16 16:38 98.1 71 18 124/77 99 I/O 09/21/16 09/21/16 09/21/16 09/22/16 09/22/16 09/22/16 07:00 15:00 23:00 07:00 15:00 23:00 Intake Total 1553 ml 601 ml 2356 ml Output Total 250 ml 750 ml 300 ml Balance -250 ml 1553 ml -149 ml 2056 ml Intake Oral 920 ml IV Total 1553 ml 601 ml 1436 ml Output Urine Total 250 ml Drainage Total 750 ml 300 ml # Voids 3 Result Diagram: 09/20/16 0331 09/20/16 0331 Imaging Last Impressions Nephrostomy 09/20/162128 Signed Impressions: Service Date/Time: Tuesday, September 20, 2016 10:09 - CONCLUSION: Uncomplicated nephrostomy tube placement as above. Mikhail Taylor MD Thyroid Ultrasound 09/20/16 0000 Signed Impressions: Service Date/Time: Tuesday, September 20, 2016 09:12 - CONCLUSION: 1. 10 mm nodule right lobe of the thyroid. Radionuclide imaging is recommended for further evaluation if clinically indicated. Mikhail Taylor MD Abdomen/Pelvis CT 09/19/16 1922 Signed Impressions: Service Date/Time: Monday, September 19, 2016 19:35 - CONCLUSION: 1. Severe left hydronephrosis, not new. 2. Large stones of the left renal pelvis and the urinary bladder as above, probably adherent/caked onto the proximal and distal portions of the left ureteral stent. 3. Small nonobstructing stones left lower pole. 4. No evidence of acute obstructive uropathy on the right. 5. Numerous small stones of the gallbladder without evidence of cholecystitis or biliary obstruction. Vincent Sparks MD Objective Remarks awake and alert, oriented x 3, speech clear anicteric lungs clear regular rhythm abdomen soft, nontender, left with nephrostomy tube in place-draining lt yellow clear urine extremities no edema, no calf swelling or tenderness neuro exam- intact Procedures 09/20- nephrostomy tube placement/stent placement A/P Problem List: (1) Hydronephrosis of left kidney ICD Code: N13.30 Status: Acute (2) Pyelonephritis ICD Code: N12 Status: Acute (3) Weight loss ICD Code: R63.4 Status: Acute Assessment and Plan 25 y/o male with a history of hydronephrosis presented with: Hydronephrosis of left kidney S/P PCN nephrostomy tube placement by IR Images: ABD CT shows severe left hydronephrosis, not new. Large stones of the left renal pelvis and the urinary bladder as above, probably adherent/caked onto the proximal and distal portions of the left ureteral stent. Small nonobstructing stones left lower pole. Numerous small stones of the gallbladder without evidence of cholecystitis or biliary obstruction. - cleared for DC by Urology- Dr. Erick Galvin- ff up in 1 week Pyelonephritis Labs: UA shows large leukocyte esterase -Urine culture - NGTD -will DC on po Levaquin x 7 more days TFTS suggestive of SES - recheck TFT in 6-8 weeks c/o PCP -advise on diet and substance - ff up with PCP DC home today - patient wants to make sure that she is on discharge pain meds d/w staff nurse to get instructions from special Procedures regarding nephrostomy tube care diet as tolerated activity regular Medication- Levofloxacin 500 mg po daily x 7 days Percocet 10/325 mg 1 tab po q 6 prn for pain FF up with Dr. Galvin- Urology in 1 week FF up with PCP - Virginia Lemus MD Sep 22, 2016 08:31
[2016-09-22] MEDS: SODIUM CHLOR 0.9% 1000 ML INJ 1,000 ML IV SCH (08:43)
--- NOTE | 2016-10-06 15:33 | MB ---
cc: JESSE DOHERTY DATE OF CONSULTATION: 09/20/2016 ADDENDUM: On the initial consultation at the review of systems, at the end please include; all other systems are negative. Jesse PAZ/khloe /1:22 PM /3:32 PM
--- NOTE | 2016-10-13 10:46 | HHI.DS ---
Discharge Summary Admission Date Sep 19, 2016 at 20:46 Discharge Date: Sep 22, 2016 Admitting Diagnosis HYDRONEPHROSIS/OBSTRUCTION, PYELONEPHRITIS (1) Hydronephrosis of left kidney ICD Code: N13.30 Diagnosis: Principal (2) Pyelonephritis ICD Code: N12 Diagnosis: Principal (3) Weight loss ICD Code: R63.4 Diagnosis: Secondary Procedures 09/20- nephrostomy tube placement/stent placement Brief History - From Admission History taken from patient and ED physician. 25 y/o female with a history a kidney stones, stents and hydronephrosis presented to the ED with complaints of hematuria, and abdominal pain. Patient states in 2008 she had a ureteral stent placed and did not follow up out patient due to lack of insurance. She states in June she begin having abdominal pain and UTIs, she was seen in the ED on 08/27/16 and was diagnosed with a UTI and hydronephrosis. 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 Today she came in with increasing sharp LLQ abdominal pain with radiation to the back with associated nausea and hematuria. She denies any chest pain, shortness of breath, fever or chills. She does state that she has had a weight loss of 30 pounds over the last 6 months. She denies any palpitations, but does feel that she cannot swallow her food properly sometimes. She states she does not recall ever having her thyroid checked, or being told it was abnormal. She currently does not have a PCP. Imaging Last Impressions Nephrostomy [id number]/20/[id number] Signed Impressions: Service Date/Time: Tuesday, September 20, 2016 10:09 - CONCLUSION: Uncomplicated nephrostomy tube placement as above. Mikhail Taylor MD Thyroid Ultrasound 09/20/16 0000 Signed Impressions: Service Date/Time: Tuesday, September 20, 2016 09:12 - CONCLUSION: 1. 10 mm nodule right lobe of the thyroid. Radionuclide imaging is recommended for further evaluation if clinically indicated. Mikhail Taylor MD Abdomen/Pelvis CT [id number]/19/[id number] Signed Impressions: Service Date/Time: Monday, September 19, 2016 19:35 - CONCLUSION: 1. Severe left hydronephrosis, not new. 2. Large stones of the left renal pelvis and the urinary bladder as above, probably adherent/caked onto the proximal and distal portions of the left ureteral stent. 3. Small nonobstructing stones left lower pole. 4. No evidence of acute obstructive uropathy on the right. 5. Numerous small stones of the gallbladder without evidence of cholecystitis or biliary obstruction. Vincent Sparks MD PE at Discharge awake and alert, oriented x 3, speech clear anicteric lungs clear regular rhythm abdomen soft, nontender, left with nephrostomy tube in place-draining lt yellow clear urine extremities no edema, no calf swelling or tenderness neuro exam- intact Pt update on day of discharge afebrile, no pain Hospital Course 25 y/o male with a history of hydronephrosis presented with: Hydronephrosis of left kidney S/P PCN nephrostomy tube placement by IR Images: ABD CT shows severe left hydronephrosis, not new. Large stones of the left renal pelvis and the urinary bladder as above, probably adherent/caked onto the proximal and distal portions of the left ureteral stent. Small nonobstructing stones left lower pole. Numerous small stones of the gallbladder without evidence of cholecystitis or biliary obstruction. - cleared for DC by Urology- Dr. Erick Galvin- ff up in 1 week Pyelonephritis Labs: UA shows large leukocyte esterase -Urine culture - NGTD -will DC on po Levaquin x 7 more days TFTS suggestive of SES - recheck TFT in 6-8 weeks c/o PCP -advise on diet and substance - ff up with PCP DC home today - patient wants to make sure that she is on discharge pain meds d/w staff nurse to get instructions from special Procedures regarding nephrostomy tube care diet as tolerated activity regular Medication- Levofloxacin 500 mg po daily x 7 days Percocet 10/325 mg 1 tab po q 6 prn for pain FF up with Dr. Galvin- Urology in 1 week FF up with PCP - Pt Condition on Discharge: Stable Discharge Disposition: Disch w/ Home Health Serv Discharge Time: <= 30 minutes Discharge Instructions DIET: Follow Instructions for: As Tolerated, No Restrictions Speech Therapy-Diet Recommends: Regular Activities you can perform: Weight Bearing as Messi Other Activity Instructions: please give post nephrostomy care instructions Follow up Referrals: PCP Follow-up - 3-5 Days with PCP PCP Follow-up with Thomas Oscar DO Urology - 1 Week with Erick Galvin DO Discontinued Medications: Hydrocodone-Acetaminophen ([place]) 5-325 mg Tab 1 TAB PO Q6H PRN PAIN #5 Ref 0 TAB Ibuprofen (Ibuprofen) 800 Mg Tab 800 MG PO Q6HR PRN PAIN #40 Ref 0 TAB Virginia Lemus MD Oct 13, 2016 10:46
[2016-11-30] MEDS ORDERED: PERC5TAB12 PO (12:47)
[2016-12-07] MEDS ORDERED: BACT800T5 PO (14:49)
[2016-12-21] MEDS ORDERED: DEPO150I IM (10:19)
[2016-12-21] MEDS ORDERED: PERC7.5T13 PO (10:19)
[2017-01-06] MEDS ORDERED: DIFL100T PO (10:25)
== END 2016-09-22 12:16 | disposition home or self-care (01) | DRG 694 ==
LOC: NEPA 18:34 → NEDA 20:46 → NEPFCDU 22:54
PROVIDERS: ADMIT Internal Medicine; ATTEND Internal Medicine
PROC: 0T9330Z Drainage of Right Kidney Pelvis with Drainage Device, Percutaneous Approach (ICD-10-PCS; principal; 2016-09-20)
PROC: BT1D1ZZ Fluoroscopy of Right Kidney, Ureter and Bladder using Low Osmolar Contrast (ICD-10-PCS; 2016-09-20)
DX: N13.2 Hydronephrosis with renal and ureteral calculous obstruction (principal); T83.89XA Other specified complication of genitourinary prosthetic devices, implants and grafts, initial encounter; F17.210 Nicotine dependence, cigarettes, uncomplicated; R63.4 Abnormal weight loss; Z87.442 Personal history of urinary calculi; K80.20 Calculus of gallbladder without cholecystitis without obstruction; N21.0 Calculus in bladder; K59.00 Constipation, unspecified; Y83.1 Surgical operation with implant of artificial internal device as the cause of abnormal reaction of the patient, or of later complication, without mention of misadventure at the time of the procedure
CPT/HCPCS: 50432; 74176; 76536; 80048; 80053; 80307; 81001; 83690; 84439; 84443; 84480; 84481; 84550; 84703; 85007; 85025; 85027; 85610; 85730; 87086; 96374; 96375; 99152; 99153; C1729; C1769; C1894; J0696; J1170; J1956; J2250; J2270; J2405; J3010; J7030; Q9967

== ENCOUNTER 2016-09-24 17:29 | Observation (INO) | payer MEDICAID ==
[~2016-09-24] VITALS: Ht 162.6 cm; Wt 55.0 kg
[~2016-09-24 17:29] MED LIST changes: -CEPH-460 PO; -IBUP-232 PO; +LEVO500T3 PO; -NORC5TAB PO; +OXYC1TAB36 PO
[2016-09-24 17:32] VITALS: BP 125/83; PULSE 66; RESP 20; TEMP 97.7; O2SAT 95
[2016-09-24] MEDS ORDERED: MORPHINE SULFATE 4 MG/ML INJ IV PUSH ONE (18:15)
[2016-09-24] MEDS ORDERED: oxyCODONE/ACETAMINOPHEN 5 MG/325 MG TAB PO ONE (18:45)
[2016-09-24 18:48] LABS: AUTOMATED NEUTROPHIL # 1.8 TH/MM3 (1.8-7.7); BASOPHIL % 0.8 % (0.0-2.0); EOSINOPHIL # 0.2 TH/MM3 (0-0.4); EOSINOPHIL % 4.7 % (0.0-4.0); HEMATOCRIT 31.9 % (35.0-46.0); HEMO FLAGS DIFF FINAL; LYMPH % 51.8 % (9.0-44.0); LYMPHOCYTE # 2.7 TH/MM3 (1.0-4.8); MEAN CELL VOLUME 83.6 FL (80.0-100.0); MEAN CORPUSCULAR HEMOGLOBIN 27.3 PG (27.0-34.0); MEAN CORPUSCULAR HGB CONC 32.7 % (32.0-36.0); MONO % 7.8 % (0.0-8.0); NEUT % 34.9 % (16.0-70.0); PLATELET COUNT 261 TH/MM3 (150-450); RED BLOOD COUNT 3.81 MIL/MM3 (4.00-5.30); RED CELL DISTRIBUTION WIDTH 16.9 % (11.6-17.2); WHITE BLOOD COUNT 5.3 TH/MM3 (4.0-11.0)
[2016-09-24 19:15] LABS: POTASSIUM 3.7 MEQ/L (3.5-5.1)
[2016-09-24 20:30] VITALS: BP 110/74; PULSE 64; RESP 18; O2SAT 97
[2016-09-24] MEDS ORDERED: HYDROmorphone HCL PF 1 MG/ML VIAL IV PUSH ONE (20:30)
--- NOTE | 2016-09-24 21:18 | PD ---
HPI Chief Complaint: Pcu Rn Problem Time Seen by Provider: 18:03 Travel History International Travel<30 days: No Contact w/Intl Traveler<30days: No Traveled to known affect area: No History of Present Illness HPI Patient is a 25-year-old female who comes in because she thinks she has dislodged her nephrostomy tube. She had the tube placed last week, and says that last night it caught on something and she felt like it came out a little bit. She says she is having a lot of pain to that area. She does not feel that it is draining as well as it has been in the past. She denies fever or chills. She denies nausea or vomiting. She has been taking Percocet at home for pain. PFSH Past Medical History Arthritis: No Cancer: No Cardiovascular Problems: No Diabetes: No Diminished Hearing: No Endocrine: No Gastrointestinal Disorders: No Genitourinary: Yes (kidney stent, UTI) Immune Disorder: No Implanted Vascular Access Dvce: No Kidney Stones: Yes Musculoskeletal: No Neurologic: No Psychiatric: No Reproductive: No Respiratory: No Seizures: No Thyroid Disease: No Ulcer: No Tetanus Vaccination: Unknown Influenza Vaccination: No ?: Not LMP: 07/05/2016 : 5 Para: 4 Miscarriage: 1 : 0 Dilation and Curettage (D&C): Yes Past Surgical History Abdominal Surgery: No Cardiac Surgery: No Ear Surgery: No Endocrine Surgery: No Eye Surgery: No Genitourinary Surgery: Yes (LEFT KIDNEY STENT 2008, NEPHROSTOMY BAG 09/21/16) Gynecologic Surgery: Yes Oral Surgery: No Thoracic Surgery: No Other Surgery: Yes (STENT IN LEFT KIDNEY IN 2008) Social History Alcohol Use: No Tobacco Use: Yes (2 ppd ) Substance Use: Yes (MARIJUANA ) Allergies-Medications (Allergen,Severity, Reaction): Coded Allergies: [place] (Verified Allergy, Severe, "THROAT SWELLS; DIFFICULTY BREATHING", ) Reported Meds & Prescriptions Reported Meds & Active Scripts Active Levofloxacin 500 Mg Tab 500 Mg PO DAILY Oxycodone-Acetaminophen 10-325 mg Tab 1 Tab PO Q6H PRN Review of Systems Except as stated in HPI: all other systems reviewed are Neg General / Constitutional: No: Fever, Chills HENT: No: Headaches, Lightheadedness Cardiovascular: No: Chest Pain or Discomfort Gastrointestinal: No: Nausea, Vomiting, Abdominal Pain Genitourinary: Positive: Flank Pain Skin: No Rash, No Change in Pigmentation Neurologic: No: Weakness, Dizziness Physical Exam Narrative GENERAL: Awake and alert in no acute distress. SKIN: Warm and dry. HEAD: Atraumatic. Normocephalic. EYES: Pupils equal and round. No scleral icterus. ENT: Mucous membranes pink and moist. NECK: Trachea midline. No JVD. CARDIOVASCULAR: Regular rate and rhythm. No murmur appreciated. RESPIRATORY: No accessory muscle use. Clear to auscultation. Breath sounds equal bilaterally. GASTROINTESTINAL: Abdomen soft, non-tender, nondistended. Tender around the left sided nephrostomy tube. There are no signs of erythema or fluctuance around the site. Tube does appear to have been pulled out slightly. MUSCULOSKELETAL: No obvious deformities. No clubbing. No cyanosis. No edema. NEUROLOGICAL: Awake and alert. No obvious cranial nerve deficits. Motor grossly within normal limits. Normal speech. PSYCHIATRIC: Appropriate mood and affect; insight and judgment normal. Data Data Last Documented VS Vital Signs Date Time Temp Pulse Resp B/P Pulse Ox O2 Delivery O2 Flow Rate FiO2 09/24/16 17:32 97.7 66 20 125/83 95 Room Air Orders Complete Blood Count With Diff (09/24/16 18:15) Basic Metabolic Panel (Bmp) (09/24/16 18:15) Morphine Inj (Morphine Inj) (09/24/16 18:15) Oxycodone-Acetamin 5-325 Mg (Percocet (09/24/16 18:45) Ct Abd/Pel W/O Iv Contrast (09/24/16 ) Ed Urine Pregnancytest Poc (09/24/16 20:17) Hydromorphone Pf Inj (Dilaudid Pf Inj) (09/24/16 20:30) Labs Laboratory Tests Test 09/24/16 18:30 White Blood Count 5.3 TH/MM3 Red Blood Count 3.81 MIL/MM3 Hemoglobin 10.4 GM/DL Hematocrit 31.9 % Mean Corpuscular Volume 83.6 FL Mean Corpuscular Hemoglobin 27.3 PG Mean Corpuscular Hemoglobin 32.7 % Concent Red Cell Distribution Width 16.9 % Platelet Count 261 TH/MM3 Mean Platelet Volume 8.5 FL Neutrophils (%) (Auto) 34.9 % Lymphocytes (%) (Auto) 51.8 % Monocytes (%) (Auto) 7.8 % Eosinophils (%) (Auto) 4.7 % Basophils (%) (Auto) 0.8 % Neutrophils # (Auto) 1.8 TH/MM3 Lymphocytes # (Auto) 2.7 TH/MM3 Monocytes # (Auto) 0.4 TH/MM3 Eosinophils # (Auto) 0.2 TH/MM3 Basophils # (Auto) 0.0 TH/MM3 CBC Comment DIFF FINAL Differential Comment Sodium Level 139 MEQ/L Potassium Level 3.7 MEQ/L Chloride Level 106 MEQ/L Carbon Dioxide Level 24.0 MEQ/L Anion Gap 9 MEQ/L Blood Urea Nitrogen 10 MG/DL Creatinine 0.67 MG/DL Estimat Glomerular Filtration 130 ML/MIN Rate Random Glucose 68 MG/DL Calcium Level 8.7 MG/DL MDM Medical Decision Making Medical Screen Exam Complete: Yes Emergency Medical Condition: Yes Medical Record Reviewed: Yes Differential Diagnosis Tube dislodgment versus UTI versus pyelonephritis Narrative Course Patient is a 25-year-old female comes in because she is concerned that her nephrostomy tube is been dislodged. Exam shows some tenderness around the tube. Patient states she has had less than 100 cc of urine output since 9 PM last night. IV established, labs sent. Creatinine is within normal limits. I spoke with Dr. Tinajero of urology who suggests CT scan to see where the tube is. If the tube has been dislodged, she will need it replaced by interventional radiology tomorrow morning. Patient given Percocet as well as Dilaudid for pain. Patient signed out to oncoming provider to follow up CT and disposition appropriately. Condition: Stable Consuelo Sood MD Sep 24, 2016 21:18
--- NOTE | 2016-09-24 21:52 | RADRPT ---
EXAM DATE/TIME: 09/24/2016 21:22 [facility] COMPARISON: PERCUTANEOUS ANTEGRADE PYELO,LT, September 20, 2016, 0:00. NEPHROSTOMY, LEFT, September 20, 2016, 10:09. CT ABDOMEN & PELVIS W/O CONTRAST, March 02, 2009, 19:35. CT ABDOMEN & PELVIS W/O CONTRAST, October 20, 2011, 8:28. CT ABDOMEN & PELVIS W/O CONTRAST, September 19, 2016, 19:35. INDICATIONS : Abdominal pain. Possible dislodged nephrostomy tube 4 days ago. ORAL CONTRAST: No oral contrast ingested. RADIATION DOSE: 9.96 CTDIvol (mGy) MEDICAL HISTORY : Renal calculi. SURGICAL HISTORY : Left kidney stent. Dilation and curettage. ENCOUNTER: Initial ACUITY: 4 - 6 days PAIN SCALE: 8/10 LOCATION: Left abdomen TECHNIQUE: Volumetric scanning of the abdomen and pelvis was performed. Using automated exposure control and ad justment of the mA and/or kV according to patient size, radiation dose was kept as low as reasonably achievable to obtain optimal diagnostic quality images. FINDINGS: The patient has a left ureteral stent in place. There is an area of dense calcification associated w ith the proximal aspect of the stent in the left renal pelvis measuring 1.5 cm. The patient also has an external left nephrostomy tube in place. There are a few small nonobstructing stones seen at the inferior left collecting system. No right-sided stones are seen. There is a 3.2 cm bladder stone s een on the right side of the bladder. The liver, spleen, pancreas and adrenal glands appear grossly normal. There is increased density see n dependently in the gallbladder representing either milk of calcium or small calcified stones. The gallbladder is not distended. The bowel is unremarkable. The pelvic structures appear grossly intac t. There is some minimal linear density at the right base likely representing some minimal scarring or atelectasis. The bony structures are grossly intact. CONCLUSION: 1. Left ureteral stent and left nephrostomy. There continues to be moderate to severe dilatation of the left collecting system. The nephrostomy projects over the inferior left collecting system. The l eft collecting system has been dilated since at least 2011. 2. Prominent calcification seen at the left renal pelvis associated with the proximal aspect of the ureteral stent measuring 1.5 cm. 3. Tiny nonobstructing stone seen at the inferior left collecting system. 4. 3.2 cm bladder stone. 5. Dependent areas of increased density representing either milk of calcium or stones in the gallbla dder. Vincent Sorensen MD on September 24, 2016 at 21:42 Board Certified Radiologist. This report was verified electronically.
--- NOTE | 2016-09-24 22:32 | PD ---
Data Data Last Documented VS Vital Signs Date Time Temp Pulse Resp B/P Pulse Ox O2 Delivery O2 Flow Rate FiO2 09/24/16 20:30 64 18 110/74 97 Room Air 09/24/16 17:32 97.7 Orders Complete Blood Count With Diff (09/24/16 18:15) Basic Metabolic Panel (Bmp) (09/24/16 18:15) Morphine Inj (Morphine Inj) (09/24/16 18:15) Oxycodone-Acetamin 5-325 Mg (Percocet (09/24/16 18:45) Ct Abd/Pel W/O Iv Contrast (09/24/16 ) Ed Urine Pregnancytest Poc (09/24/16 20:17) Hydromorphone Pf Inj (Dilaudid Pf Inj) (09/24/16 20:30) Admit Order (Ed Use Only) (09/24/16 22:29) Labs Laboratory Tests Test 09/24/16 18:30 White Blood Count 5.3 TH/MM3 Red Blood Count 3.81 MIL/MM3 Hemoglobin 10.4 GM/DL Hematocrit 31.9 % Mean Corpuscular Volume 83.6 FL Mean Corpuscular Hemoglobin 27.3 PG Mean Corpuscular Hemoglobin 32.7 % Concent Red Cell Distribution Width 16.9 % Platelet Count 261 TH/MM3 Mean Platelet Volume 8.5 FL Neutrophils (%) (Auto) 34.9 % Lymphocytes (%) (Auto) 51.8 % Monocytes (%) (Auto) 7.8 % Eosinophils (%) (Auto) 4.7 % Basophils (%) (Auto) 0.8 % Neutrophils # (Auto) 1.8 TH/MM3 Lymphocytes # (Auto) 2.7 TH/MM3 Monocytes # (Auto) 0.4 TH/MM3 Eosinophils # (Auto) 0.2 TH/MM3 Basophils # (Auto) 0.0 TH/MM3 CBC Comment DIFF FINAL Differential Comment Sodium Level 139 MEQ/L Potassium Level 3.7 MEQ/L Chloride Level 106 MEQ/L Carbon Dioxide Level 24.0 MEQ/L Anion Gap 9 MEQ/L Blood Urea Nitrogen 10 MG/DL Creatinine 0.67 MG/DL Estimat Glomerular Filtration 130 ML/MIN Rate Random Glucose 68 MG/DL Calcium Level 8.7 MG/DL MDM Supervised Visit with JOHNATHAN: No Narrative Course The patient was initially evaluated by the previous provider and signed out to me at the end of her shift pending CT abdomen pelvis, urology consultation, and disposition. See her note for further details. Briefly is a 25-year-old female who was recently admitted for left hydronephrosis/pyelonephritis, had left ureteral stent and left nephrostomy tube placed, here because she believes her nephrostomy tube was dislodged. She states that when she went to the restaurant today the tubing caught on a cabinet door area since that time she has had no urine output from the nephrostomy tube. She states she has been drinking any water throughout the day today. She is having some pain in the left flank area as well. CT abdomen pelvis: CONCLUSION: 1. Left ureteral stent and left nephrostomy. There continues to be moderate to severe dilatation of the left collecting system. 2. Prominent calcification seen at the left renal pelvis associated with the proximal aspect of the ureteral stent measuring 1.5 cm. 3. Tiny nonobstructing stone seen at the inferior left collecting system. 4. 3.2 cm bladder stone. 5. Dependent areas of increased density representing either milk of calcium or stones in the gallbladder. Case discussed with on-call urologist Dr. Tinajero who recommends patient be admitted for IR to evaluate the nephrostomy tube in the morning. Case discussed with hospitalist Dr. Peñaloza who will admit patient to her service. Diagnosis Primary Impression: Hydronephrosis of left kidney Additional Impression: Nephrostomy complication Admitting Information Admitting Physician Requests: Observation Condition: Stable Dioni Gibbons MD Sep 24, 2016 22:32
[2016-09-24] MEDS: SODIUM CHLOR 0.9% 1000 ML INJ 1,000 ML IV SCH (22:37)
[2016-09-24] MEDS ORDERED: ACETAMINOPHEN/HYDROcodone 325 MG/5 MG TAB PO PRN (22:45)
[2016-09-24] MEDS ORDERED: BISACODYL 10 MG SUPP PR PRN (22:45)
[2016-09-24] MEDS ORDERED: SODIUM CHLORIDE 0.9% FLUSH 5 ML FLUSH FLUSH PRN (22:45)
[2016-09-24] MEDS ORDERED: ONDANSETRON HCL 4 MG/2 ML VIAL IVP PRN (22:45)
[2016-09-24] MEDS ORDERED: ACETAMINOPHEN 325 MG TAB PO PRN (22:45)
[2016-09-24] MEDS: CIPROFLOXACIN 400 MG PREMIX 200 ML IV SCH (23:00)
[2016-09-24 23:26] VITALS: BP 111/73; PULSE 69; RESP 20; O2SAT 98
--- NOTE | 2016-09-24 23:48 | HHI.HP ---
[facility] Unknown Admission Diagnosis left hydronephrosis, nephrostomy tube dislodged Diagnoses: (1) Nephrostomy complication Diagnosis: Principal (2) Hydronephrosis of left kidney Diagnosis: Principal (3) UTI (urinary tract infection) Diagnosis: Principal Travel History International Travel<30 Days: No Contact w/Intl Traveler <30 Da: No Traveled to Known Affected Are: No History of Present Illness This is a 25-year-old female with a PMH of Kidney Stones who came into the ER with complaints of malfunctioning left nephrostomy tube since last night. Recent admit for left renal stone w/ hydronephrosis, s/p eval by Dr. Galvin and Left Nephrostomy Tube placement by IR on 09/20/16, d/c'd on Levaquin x7 days for UTI w/ plans for outpatient follow up w/ Urology. States last night her nephrostomy tube got caught on her dresser and hasn't had any urine output since. Denies abdominal pain, nausea or vomiting. Dr. Tinajero consulted by ER physician, recommended CT Abd/Pelvis which shows left ureteral stent and left nephrostomy w/ persistent dilatation of left collecting system. Plan is for IR in am. Review of Systems Other ROS: 14 point review of systems otherwise negative. Past Family Social History Past Medical History PMH: Renal Stones Past Surgical History PAST SURGICAL HISTORY: Left Renal Stent, Left Nephrostomy Allergies: Coded Allergies: [place] (Verified Allergy, Severe, "THROAT SWELLS; DIFFICULTY BREATHING", ) Family History PAST FAMILY HISTORY: Reviewed. No h/o DM or CAD Social History PAST SOCIAL HISTORY: Negative for alcohol. Smokes 1/2ppd. Smokes Marijuana. Physical Exam Vital Signs Vital Signs Date Time Temp Pulse Resp B/P Pulse Ox O2 Delivery O2 Flow Rate FiO2 09/24/16 23:26 69 20 111/73 98 Room Air 09/24/16 20:30 64 18 110/74 97 Room Air 09/24/16 17:32 97.7 66 20 125/83 95 Room Air Physical Exam PE: GENERAL: Young female in no acute distress. HEENT: PERRLA, EOMI. No scleral icterus or conjunctival pallor. No lid lag or facial droop. CARDIOVASCULAR: Regular rate and rhythm. No obvious murmurs to auscultation. No chest tenderness to palpation. RESPIRATORY: No obvious rhonchi or wheezing. Clear to auscultation. Breath sounds equal bilaterally. GASTROINTESTINAL: Abdomen soft, non-tender, nondistended. BS normal. Left nephrostomy tube, no signs of infection, tender to palpation MUSCULOSKELETAL: Extremities without clubbing, cyanosis, or edema. No obvious deformities. NEUROLOGICAL: Awake, alert and oriented x4. No focal neurologic deficits. Moving both upper and lower extremities spontaneously. Laboratory Laboratory Tests Test 09/24/16 18:30 White Blood Count 5.3 Red Blood Count 3.81 Hemoglobin 10.4 Hematocrit 31.9 Mean Corpuscular Volume 83.6 Mean Corpuscular Hemoglobin 27.3 Mean Corpuscular Hemoglobin 32.7 Concent Red Cell Distribution Width 16.9 Platelet Count 261 Mean Platelet Volume 8.5 Neutrophils (%) (Auto) 34.9 Lymphocytes (%) (Auto) 51.8 Monocytes (%) (Auto) 7.8 Eosinophils (%) (Auto) 4.7 Basophils (%) (Auto) 0.8 Neutrophils # (Auto) 1.8 Lymphocytes # (Auto) 2.7 Monocytes # (Auto) 0.4 Eosinophils # (Auto) 0.2 Basophils # (Auto) 0.0 CBC Comment DIFF FINAL Differential Comment Sodium Level 139 Potassium Level 3.7 Chloride Level 106 Carbon Dioxide Level 24.0 Anion Gap 9 Blood Urea Nitrogen 10 Creatinine 0.67 Estimat Glomerular Filtration 130 Rate Random Glucose 68 Calcium Level 8.7 Result Diagram: 09/24/16 18309/[id number]/161829 Assessment and Plan Problem List: (1) Nephrostomy complication ICD Code: N99.528 Status: Acute (2) Hydronephrosis of left kidney ICD Code: N13.30 Status: Acute (3) UTI (urinary tract infection) ICD Code: N39.0 Status: Acute Assessment and Plan A/P: 1. Nephrostomy Complication: s/p Left Nephrostomy Placement by IR 09/20/16 for renal stone/hydronephrosis, s/p accidental dislodgement of nephrostomy tube. No signs of infection. Urology consulted by ER physician, recommended CT Abd/ Pelvis which shows persistent hydronephrosis and previous left renal stent and nephrostomy, images reviewed by me. Dr. Tinajero recommending IR for replacement of Nephrostomy Tube, consult for IR ordered by ER physician, plan for am. 2. Hydronephrosis: Persistent, recent admit 09/20/16, s/p eval by Dr. Galvin w / left renal stent and nephrostomy placement. 3. UTI: U/a w/ UTI, d/c'd on Levaquin x7 days, will continue w/ IV Abx, IVF. 4. DVT Prophylaxis: SCD/Teds. 5. Social work for d/c planning as needed. 6. Case discussed w/ ER physician at length. Ofelia Peñaloza MD Sep 24, 2016 23:48
[2016-09-25] MEDS: MORPHINE SULFATE 4 MG/ML INJ IV PRN ×4 (00:24→13:13)
[2016-09-25 00:46] VITALS: BP 109/75; PULSE 62; RESP 19; TEMP 97.4; O2SAT 100
[2016-09-25 03:38] VITALS: BP 112/79; PULSE 70; RESP 20; TEMP 97.4; O2SAT 99
[2016-09-25 07:04] LABS: AUTOMATED NEUTROPHIL # 0.8 TH/MM3 (1.8-7.7); BASOPHIL % 0.7 % (0.0-2.0); EOSINOPHIL # 0.3 TH/MM3 (0-0.4); EOSINOPHIL % 5.5 % (0.0-4.0); HEMATOCRIT 28.8 % (35.0-46.0); LYMPH % 67.4 % (9.0-44.0); LYMPHOCYTE # 3.2 TH/MM3 (1.0-4.8); MEAN CELL VOLUME 82.7 FL (80.0-100.0); MEAN CORPUSCULAR HEMOGLOBIN 27.5 PG (27.0-34.0); MEAN CORPUSCULAR HGB CONC 33.2 % (32.0-36.0); MONO % 8.8 % (0.0-8.0); NEUT % 17.6 % (16.0-70.0); PLATELET COUNT 258 TH/MM3 (150-450); RED BLOOD COUNT 3.49 MIL/MM3 (4.00-5.30); RED CELL DISTRIBUTION WIDTH 16.8 % (11.6-17.2); WHITE BLOOD COUNT 4.8 TH/MM3 (4.0-11.0)
[2016-09-25 07:12] LABS: HEMO FLAGS AUTO DIFF
[2016-09-25 07:30] LABS: ALKALINE PHOSPHATASE 44 U/L (45-117); ALT (GPT) 21 U/L (10-53); ANION GAP 7 MEQ/L (5-15); AST (GOT) 10 U/L (15-37); BICARBONATE 26.1 MEQ/L (21.0-32.0); BLOOD UREA NITROGEN 11 MG/DL (7-18); CHLORIDE 107 MEQ/L (98-107); GLOMERULAR FILTRATION RATE 118 ML/MIN (>89); POTASSIUM 3.6 MEQ/L (3.5-5.1); SODIUM (NA) 140 MEQ/L (136-145); TOTAL BILIRUBIN ADULT 0.2 MG/DL (0.2-1.0)
[2016-09-25] MEDS ORDERED: SODIUM CHLORIDE 0.9% FLUSH 5 ML FLUSH FLUSH SCH (09:00)
[2016-09-25 09:41] LABS: BANDS 1 % (0-6); EOSINOPHILS 5 % (0-4); NEUTROPHIL # MANUAL DIFF 0.9 TH/MM3 (1.8-7.7); POLYS (SEG NEUTROPHILS) 18 % (16-70); WBC DIFF SAMPLE 100
[2016-09-25 09:45] LABS: OVALOCYTES 1+ (NORMAL); PLATELET ESTIMATE SMEAR NORMAL (NORMAL); PLATELET MORPHOLOGY NORMAL (NORMAL)
[2016-09-25] MEDS: SODIUM CHLOR 0.9% 1000 ML INJ 1,000 ML IV SCH (09:45)
[2016-09-25 09:46] LABS: ACANTHOCYTES 1+ (NORMAL); SCAN/DIFF FINAL DIFF MANUAL
[2016-09-25 09:47] VITALS: BP 124/80; PULSE 60; RESP 18; TEMP 98.2; O2SAT 95
[2016-09-25] MEDS: CIPROFLOXACIN 400 MG PREMIX 200 ML IV SCH (10:11)
[2016-09-25 12:37] VITALS: BP 112/70; PULSE 60; RESP 20; TEMP 97.8; O2SAT 95
[2016-09-25 15:09] VITALS: BP 119/56; PULSE 66; RESP 18; TEMP 98.8; O2SAT 97
--- NOTE | 2016-09-25 16:40 | HHI.PR ---
Subjective Remarks complains of pain but appears very comfortable- up and walking around no nausea or vomiting constipated but passing out lots of flatus nephrostomy draining- 500cc last shift Objective Vitals Vital Signs Date Time Temp Pulse Resp B/P Pulse Ox O2 Delivery O2 Flow Rate FiO2 09/25/16 15:09 98.8 66 18 119/56 97 09/25/16 12:37 97.8 60 20 112/70 95 09/25/16 09:47 98.2 60 18 124/80 95 09/25/16 03:38 97.4 70 20 112/79 99 09/25/16 00:51 16 09/25/16 00:46 97.4 62 19 109/75 100 09/24/16 23:26 69 20 111/73 98 Room Air 09/24/16 20:30 64 18 110/74 97 Room Air 09/24/16 17:32 97.7 66 20 125/83 95 Room Air I/O 09/24/16 09/24/16 09/24/16 09/25/16 09/25/16 09/25/16 07:00 15:00 23:00 07:00 15:00 23:00 Intake Total 733 ml Balance 733 ml Intake Oral 240 ml IV Total 493 ml # Voids 1 Result Diagram: 09/25/16 0629 09/25/16 0629 Imaging Last Impressions Abdomen/Pelvis CT 09/24/16 0000 Signed Impressions: Service Date/Time: Saturday, September 24, 2016 21:22 - CONCLUSION: 1. Left ureteral stent and left nephrostomy. There continues to be moderate to severe dilatation of the left collecting system. The nephrostomy projects over the inferior left collecting system. The left collecting system has been dilated since at least 2011. 2. Prominent calcification seen at the left renal pelvis associated with the proximal aspect of the ureteral stent measuring 1.5 cm. 3. Tiny nonobstructing stone seen at the inferior left collecting system. 4. 3.2 cm bladder stone. 5. Dependent areas of increased density representing either milk of calcium or stones in the gallbladder. Vincent Sorensen MD Objective Remarks awake and alert anicteric lungs clear regular rhythm abdomen- left flank dressing in place- nephrostomy tube- draining lt blood tinged urine extremities no edema A/P Problem List: (1) Nephrostomy complication ICD Code: N99.528 Status: Acute (2) Hydronephrosis of left kidney ICD Code: N13.30 Status: Acute (3) UTI (urinary tract infection) ICD Code: N39.0 Status: Acute Assessment and Plan 1. s/p Left Nephrostomy Placement by IR 09/20/16 for renal stone/ hydronephrosis, s/p accidental dislodgement of nephrostomy tube. CT Abd/ Pelvis which shows persistent hydronephrosis and previous left renal stent and nephrostomy, I reviewed films with Dr. Sorensen- radiology- nephrostomy in the same exact place. nephrostomy tube draining very well 2. Hydronephrosis: Persistent, recent admit 09/20/16, s/p eval by Dr. Galvin w / left renal stent and nephrostomy placement. - OP ff up with him as scheduled 3. UTI: U/a w/ UTI, d/c'd on Levaquin x7 days,= to complete course- have meds at home 4. DVT Prophylaxis: SCD/Teds. DC home today FF up with Dr. Galvin Urology as scheduled from last visit PCP ff up as OP diet regular. activity as tolerted, caution with nephrostomy tube continue meds- Continue Levaquin course and home po Percocet prn- got meds from last hospitalization Virginia Lemus MD Sep 25, 2016 16:40
[2016-09-25] MEDS ORDERED: DOCUSATE SODIUM 100 MG CAP PO SCH (16:45)
[2016-09-25] MEDS ORDERED: POLYETHYLENE GLYCOL 17 GM PKG PO ONE (16:45)
--- NOTE | 2016-09-25 17:02 | PD.CONS ---
HPI Service Urology Consult Requested By Primary Care Physician Unknown Diagnosis: (1) Nephrostomy complication ICD Code: N99.528 (2) Hydronephrosis of left kidney ICD Code: N13.30 (3) UTI (urinary tract infection) ICD Code: N39.0 History of Present Illness 25yo female followed by Dr. Galvin with history of left nephrolithiasis with retained left stent now with calcification at the proximal and distal end currently managed with an indwelling left nephrostomy tube with plans for future surgical intervention now with concern for dislodged left nephrostomy tube. Patient reports she caught her nephrostomy tube that she felt pulled her tube out of position. since then, she has been having increasing left flank pain with minimal output from her nephrostomy tube. no fevers. Review of Systems ROS Limitations: Clinical Condition Constitutional: DENIES: Fever Endocrine: DENIES: Polyuria Eyes: DENIES: Blurred vision Ears, nose, mouth, throat: DENIES: Hearing loss Respiratory: DENIES: Cough Cardiovascular: DENIES: Chest pain Gastrointestinal: DENIES: Abdominal pain Genitourinary: DENIES: Hematuria Musculoskeletal: COMPLAINS OF: Back pain Integumentary: DENIES: Abnormal pigmentation Hematologic/lymphatic: DENIES: Bruising Immunologic/allergic: DENIES: Eczema Neurologic: DENIES: Headache Psychiatric: DENIES: Anxiety Past Family Social History Past Medical History PMH: Renal Stones Past Surgical History Left Renal Stent, Left Nephrostomy Reported Medications Reported Meds & Active Scripts Active Levofloxacin 500 Mg Tab 500 Mg PO DAILY Oxycodone-Acetaminophen 10-325 mg Tab 1 Tab PO Q6H PRN Allergies: Coded Allergies: [place] (Verified Allergy, Severe, "THROAT SWELLS; DIFFICULTY BREATHING", ) Active Ordered Medications Current Medications Medications (Trade) Dose Ordered Sig/Dennise Route Start Time Stop Time Status Last Admin Ciprofloxacin/ Dextrose 200 ml @ 200 mls/hr Q12H IV 09/24/16 23:00 09/25/16 10:11 (NS 1000 ml Inj) 1,000 ml @ 100 mls/hr Q10H IV 09/24/16 22:37 09/25/16 09:45 (NS Flush) 2 ml UNSCH PRN FLUSH 09/24/16 22:45 (NS Flush) 2 ml BID FLUSH 09/25/16 09:00 (Zofran Inj) 4 mg Q6H PRN IVP 09/24/16 22:45 (Dulcolax Supp) 10 mg DAILY PRN RI 09/24/16 22:45 (Tylenol) 650 mg Q6H PRN PO 09/24/16 22:45 ([place] 5-325 Mg) 1 tab Q4H PRN PO 09/24/16 22:45 (Morphine Inj) 2 mg Q3H PRN IV 09/24/16 22:45 09/25/16 13:13 (Miralax) 17 gm ONCE ONCE PO 09/25/16 16:45 09/25/16 16:46 UNV (Colace) 100 mg BID PO 09/25/16 16:45 UNV Family History Reviewed and noncontributory to present illness. No h/o DM or CAD Social History Negative for alcohol. Smokes 1/2ppd. Smokes Marijuana. Physical Exam Vital Signs Vital Signs Date Time Temp Pulse Resp B/P Pulse Ox O2 Delivery O2 Flow Rate FiO2 09/25/16 15:09 98.8 66 18 119/56 97 09/25/16 12:37 97.8 60 20 112/70 95 09/25/16 09:47 98.2 60 18 124/80 95 09/25/16 03:38 97.4 70 20 112/79 99 09/25/16 00:51 16 09/25/16 00:46 97.4 62 19 109/75 100 09/24/16 23:26 69 20 111/73 98 Room Air 09/24/16 20:30 64 18 110/74 97 Room Air 09/24/16 17:32 97.7 66 20 125/83 95 Room Air Physical Exam GENERAL: This is a well-nourished, well-developed patient, in no apparent distress. SKIN: No rashes, ecchymoses or lesions. Cool and dry. HEAD: Atraumatic. Normocephalic. EYES: Extraocular motions intact. No scleral icterus. No injection or drainage. ENT: Nose without bleeding, purulent drainage. Airway patent. NECK: Trachea midline. CARDIOVASCULAR: Normal pulses, extremities well perfused. RESPIRATORY: Nonlabored, equal chest rise GASTROINTESTINAL: Abdomen soft, non-tender, nondistended MUSCULOSKELETAL: Extremities without clubbing, cyanosis, or edema. NEUROLOGICAL: Awake and alert. Motor and sensory grossly within normal limits. Normal speech. Laboratory Laboratory Tests Test 09/24/16 09/25/16 18:30 06:29 White Blood Count 5.3 4.8 Red Blood Count 3.81 3.49 Hemoglobin 10.4 9.6 Hematocrit 31.9 28.8 Mean Corpuscular Volume 83.6 82.7 Mean Corpuscular Hemoglobin 27.3 27.5 Mean Corpuscular Hemoglobin 32.7 33.2 Concent Red Cell Distribution Width 16.9 16.8 Platelet Count 261 258 Mean Platelet Volume 8.5 8.0 Neutrophils (%) (Auto) 34.9 17.6 Lymphocytes (%) (Auto) 51.8 67.4 Monocytes (%) (Auto) 7.8 8.8 Eosinophils (%) (Auto) 4.7 5.5 Basophils (%) (Auto) 0.8 0.7 Neutrophils # (Auto) 1.8 0.8 Lymphocytes # (Auto) 2.7 3.2 Monocytes # (Auto) 0.4 0.4 Eosinophils # (Auto) 0.2 0.3 Basophils # (Auto) 0.0 0.0 CBC Comment DIFF FINAL AUTO DIFF Differential Comment FINAL DIFF MANUAL Sodium Level 139 140 Potassium Level 3.7 3.6 Chloride Level 106 107 Carbon Dioxide Level 24.0 26.1 Anion Gap 9 7 Blood Urea Nitrogen 10 11 Creatinine 0.67 0.73 Estimat Glomerular Filtration 130 118 Rate Random Glucose 68 73 Calcium Level 8.7 8.1 Differential Total Cells 100 Counted Neutrophils % (Manual) 18 Band Neutrophils % 1 Lymphocytes % 72 Monocytes % 4 Eosinophils % 5 Neutrophils # (Manual) 0.9 Platelet Estimate NORMAL Platelet Morphology Comment NORMAL Ovalocytes 1+ Acanthocytes 1+ Total Bilirubin 0.2 Aspartate Amino Transf 10 (AST/SGOT) Alanine Aminotransferase 21 (ALT/SGPT) Alkaline Phosphatase 44 Total Protein 6.4 Albumin 2.9 Result Diagram: 09/25/16 0629 09/25/16 0629 Imaging Last 72 hours Impressions Abdomen/Pelvis CT 09/24/16 0000 Signed Impressions: Service Date/Time: Saturday, September 24, 2016 21:22 - CONCLUSION: 1. Left ureteral stent and left nephrostomy. There continues to be moderate to severe dilatation of the left collecting system. The nephrostomy projects over the inferior left collecting system. The left collecting system has been dilated since at least 2011. 2. Prominent calcification seen at the left renal pelvis associated with the proximal aspect of the ureteral stent measuring 1.5 cm. 3. Tiny nonobstructing stone seen at the inferior left collecting system. 4. 3.2 cm bladder stone. 5. Dependent areas of increased density representing either milk of calcium or stones in the gallbladder. Vincent Sorensen MD Assessment and Plan Problem List: (1) Nephrolithiasis ICD Code: N20.0 Status: Acute (2) UTI (urinary tract infection) ICD Code: N39.0 Status: Acute (3) Hydronephrosis of left kidney ICD Code: N13.30 Status: Acute (4) Nephrostomy complication ICD Code: N99.528 Status: Acute Assessment and Plan -Review of the CT scan identifies the left ureteral stent with stone at the proximal renal end as well as large bladder stone. -the left nephrostomy tube appears to be in the lower pole calyx, however the kidney remains distended similar to images prior to nephrostomy tube placement. Minimal urine output -Concern for tube to be dislodged or not draining properly -Recommend IR evaluation of her left nephrostomy tube and exchange if necessary -Patient to follow-up with Luís Post MD Sep 25, 2016 17:01
[2016-09-25] MEDS ORDERED: DOCU1CAP39 PO (17:16)
[2016-11-30] MEDS ORDERED: PERC5TAB12 PO (12:47)
[2016-12-07] MEDS ORDERED: BACT800T5 PO (14:49)
[2016-12-21] MEDS ORDERED: DEPO150I IM (10:19)
[2016-12-21] MEDS ORDERED: PERC7.5T13 PO (10:19)
[2017-01-06] MEDS ORDERED: DIFL100T PO (10:25)
== END 2016-09-25 18:30 | disposition home or self-care (01) ==
LOC: NEPA 17:29 → NEDA 22:31 → NEPFCDU 23:58
PROVIDERS: ADMIT Internal Medicine; ATTEND Internal Medicine
DX: N99.528 Other complication of incontinent external stoma of urinary tract (principal); N13.2 Hydronephrosis with renal and ureteral calculous obstruction; N39.0 Urinary tract infection, site not specified; F12.90 Cannabis use, unspecified, uncomplicated; K59.00 Constipation, unspecified; Z72.0 Tobacco use
CPT/HCPCS: 74176; 80048; 80053; 84703; 85007; 85025; 85027; 96374; 99284; G0378; J0744; J1170; J2270; J7030

== ENCOUNTER 2016-10-04 16:11 | Emergency (ER) | payer MEDICAID ==
[~2016-10-04] VITALS: Ht 162.6 cm; Wt 54.5 kg
[~2016-10-04 16:11] MED LIST changes: +DOCU1CAP39 PO
[2016-10-04 16:14] VITALS: BP 128/78; PULSE 78; RESP 14; TEMP 98.1; O2SAT 99
--- NOTE | 2016-10-04 18:13 | PD ---
HPI Chief Complaint: Abdominal Pain Time Seen by Provider: 18:13 Travel History International Travel<30 days: No Contact w/Intl Traveler<30days: No Traveled to known affect area: No History of Present Illness HPI 26-year-old female with history of left-sided renal calculi, stent placement, nephrostomy tube, presents to emergency department for evaluation of left sided abdominal and flank pain. Patient should also reports pain around the base of her left nephrostomy tube. She has been nauseous without vomiting. She states that she is in significant pain and her urologist Dr. Galvin said that she could come to the emergency department for pain control and did not give her a prescription for pain control outpatient. No definite fever but chills. No chest pain or tightness. No difficulty breathing. No other symptoms to report. PFSH Past Medical History Arthritis: No Cancer: No Cardiovascular Problems: No Diabetes: No Diminished Hearing: No Endocrine: No Gastrointestinal Disorders: No Genitourinary: Yes (kidney stent) Immune Disorder: No Implanted Vascular Access Dvce: No Kidney Stones: Yes Musculoskeletal: No Neurologic: No Psychiatric: No Reproductive: No Respiratory: No Seizures: No Thyroid Disease: No Ulcer: No : 5 Para: 4 Miscarriage: 1 : 0 Dilation and Curettage (D&C): Yes Past Surgical History Abdominal Surgery: No Body Medical Devices: Left kidney stent Cardiac Surgery: No Ear Surgery: No Endocrine Surgery: No Eye Surgery: No Genitourinary Surgery: Yes (LEFT KIDNEY STENT 2008, NEPHROSTOMY BAG 09/21/16) Gynecologic Surgery: Yes Oral Surgery: No Thoracic Surgery: No Other Surgery: Yes (STENT IN LEFT KIDNEY IN 2008) Social History Alcohol Use: No Tobacco Use: Yes (09/05 ppd ) Substance Use: No Allergies-Medications (Allergen,Severity, Reaction): Coded Allergies: [place] (Verified Allergy, Severe, "THROAT SWELLS; DIFFICULTY BREATHING", ) Reported Meds & Prescriptions Reported Meds & Active Scripts Active Review of Systems Except as stated in HPI: all other systems reviewed are Neg Physical Exam Narrative GENERAL: Well-nourished female patient, in no acute distress SKIN: Warm and dry. Left-sided nephrostomy was dressing in place. HEAD: Atraumatic. Normocephalic. EYES: Pupils equal and round. No scleral icterus. No injection or drainage. ENT: No nasal bleeding or discharge. Mucous membranes pink and moist. NECK: Trachea midline. No JVD. CARDIOVASCULAR: Regular rate and rhythm. No murmur appreciated. RESPIRATORY: No accessory muscle use. Clear to auscultation. Breath sounds equal bilaterally. GASTROINTESTINAL: Abdomen soft, nondistended. No significant tenderness to palpation. Hepatic and splenic margins not palpable. MUSCULOSKELETAL: No obvious deformities. No clubbing. No cyanosis. No edema. NEUROLOGICAL: Awake and alert. No obvious cranial nerve deficits. Motor grossly within normal limits. Normal speech. PSYCHIATRIC: Appropriate mood and affect; insight and judgment normal. Data Data Last Documented VS Vital Signs Date Time Temp Pulse Resp B/P Pulse Ox O2 Delivery O2 Flow Rate FiO2 10/04/16 20:00 16 10/04/16 16:14 98.1 78 128/78 99 Room Air Orders Complete Blood Count With Diff (10/04/16 18:12) Basic Metabolic Panel (Bmp) (10/04/16 18:12) Urinalysis - C+S If Indicated (10/04/16 18:12) Ed Urine Pregnancytest Poc (10/04/16 18:12) Urine Culture (10/04/16 18:45) Ceftriaxone Inj (Rocephin Inj) (10/04/16 20:00) Ct Abd/Pel W Iv Contrast(Rout) (10/04/16 ) Ketorolac Inj (Toradol Inj) (10/04/16 20:15) Labs Laboratory Tests Test 10/04/16 18:45 White Blood Count 6.1 TH/MM3 Red Blood Count 3.64 MIL/MM3 Hemoglobin 10.1 GM/DL Hematocrit 30.8 % Mean Corpuscular Volume 84.7 FL Mean Corpuscular Hemoglobin 27.7 PG Mean Corpuscular Hemoglobin 32.7 % Concent Red Cell Distribution Width 17.9 % Platelet Count 312 TH/MM3 Mean Platelet Volume 8.1 FL Neutrophils (%) (Auto) 45.8 % Lymphocytes (%) (Auto) 43.3 % Monocytes (%) (Auto) 7.0 % Eosinophils (%) (Auto) 3.2 % Basophils (%) (Auto) 0.7 % Neutrophils # (Auto) 2.8 TH/MM3 Lymphocytes # (Auto) 2.7 TH/MM3 Monocytes # (Auto) 0.4 TH/MM3 Eosinophils # (Auto) 0.2 TH/MM3 Basophils # (Auto) 0.0 TH/MM3 CBC Comment DIFF FINAL Differential Comment Urine Color YELLOW Urine Turbidity HAZY Urine pH 7.0 Urine Specific [place] 1.020 Urine Protein 100 mg/dL Urine Glucose (UA) NEG mg/dL Urine Ketones NEG mg/dL Urine Occult Blood LARGE Urine Nitrite POS Urine Bilirubin NEG Urine Urobilinogen LESS THAN 2.0 MG/DL Urine Leukocyte Esterase LARGE Urine RBC /hpf Urine WBC 145 /hpf Urine Squamous Epithelial 1 /hpf Cells Urine Bacteria MOD /hpf Urine Mucus FEW /lpf Urine Yeast ([place]) RARE Microscopic Urinalysis Comment CULTURE INDICATED Sodium Level 141 MEQ/L Potassium Level 3.7 MEQ/L Chloride Level 109 MEQ/L Carbon Dioxide Level 25.1 MEQ/L Anion Gap 7 MEQ/L Blood Urea Nitrogen 12 MG/DL Creatinine 0.70 MG/DL Estimat Glomerular Filtration 122 ML/MIN Rate Random Glucose 79 MG/DL Calcium Level 8.6 MG/DL [facility] Medical Decision Making Medical Screen Exam Complete: Yes Emergency Medical Condition: Yes Medical Record Reviewed: Yes Differential Diagnosis UTI versus renal calculi versus muscle strain versus nephrostomy tube complication Narrative Course 26 [facility]. Workup was initiated in triage. Once a medical bed becomes available, patient will be transferred and care assumed by that provider. Condition: Stable Susan Bahena Oct 04, 2016 18:13
[2016-10-04 19:08] LABS: AUTOMATED NEUTROPHIL # 2.8 TH/MM3 (1.8-7.7); BASOPHIL % 0.7 % (0.0-2.0); EOSINOPHIL # 0.2 TH/MM3 (0-0.4); EOSINOPHIL % 3.2 % (0.0-4.0); HEMATOCRIT 30.8 % (35.0-46.0); HEMO FLAGS DIFF FINAL; LYMPH % 43.3 % (9.0-44.0); LYMPHOCYTE # 2.7 TH/MM3 (1.0-4.8); MEAN CELL VOLUME 84.7 FL (80.0-100.0); MEAN CORPUSCULAR HEMOGLOBIN 27.7 PG (27.0-34.0); MEAN CORPUSCULAR HGB CONC 32.7 % (32.0-36.0); NEUT % 45.8 % (16.0-70.0); PLATELET COUNT 312 TH/MM3 (150-450); RED BLOOD COUNT 3.64 MIL/MM3 (4.00-5.30); RED CELL DISTRIBUTION WIDTH 17.9 % (11.6-17.2); WHITE BLOOD COUNT 6.1 TH/MM3 (4.0-11.0)
[2016-10-04 19:35] LABS: BICARBONATE 25.1 MEQ/L (21.0-32.0); POTASSIUM 3.7 MEQ/L (3.5-5.1)
[2016-10-04 19:37] LABS: BACTERIA, URINE MOD /hpf; BLOOD, URINE LARGE (NEG); COMMENT (UR) CULTURE INDICATED; CULTURE IF INDICATED CULTURE INDICATED; GLUCOSE,URINE NEG (NEG); KETONE, URINE NEG (NEG); MUCUS URINE FEW /lpf (OCC); SQUAMOUS EPITHELIAL CELL URINE 1 /hpf (0-5); URINE COLOR YELLOW (YELLW/STRAW)
[2016-10-04 19:40] LABS: NITRITE,URINE POS (NEG)
[2016-10-04] MEDS ORDERED: cefTRIAXone INJ 1,000 MG in SODIUM CHLORIDE 0.9% INJ 100 ML IV ONE (20:00)
[2016-10-04] MEDS ORDERED: KETOROLAC TROMETHAMINE 30 MG/ML (IVP) VIAL IV PUSH ONE (20:15)
--- NOTE | 2016-10-04 20:22 | PD ---
HPI Chief Complaint: Abdominal Pain Time Seen by Provider: 19:53 Travel History International Travel<30 days: No Contact w/Intl Traveler<30days: No Traveled to known affect area: No History of Present Illness HPI 26yo F with PMH of nephrolithiasis s/p left nephrostomy tube 09/20/16 presents to the ED with c/o left abdominal pain for 1 week. States she ran out of her percocet 1 week ago. Denies any fever, nausea, vomiting, decreased urine output from nephrostomy tube. Pt was here on 09/24/16-09/25/16 for possible malfunction of her left nephrostomy tube. Her nephrostomy tube was not replaced and was functioning well after IR reviewed the CT scan. [facility]LY [facility] Past Medical History Arthritis: No Cancer: No Cardiovascular Problems: No Diabetes: No Diminished Hearing: No Endocrine: No Gastrointestinal Disorders: No Genitourinary: Yes (kidney stent) Immune Disorder: No Implanted Vascular Access Dvce: No Kidney Stones: Yes Musculoskeletal: No Neurologic: No Psychiatric: No Reproductive: No Respiratory: No Seizures: No Thyroid Disease: No Ulcer: No Tetanus Vaccination: < 5 Years Influenza Vaccination: No ?: Not : 5 Para: 4 Miscarriage: 1 : 0 Dilation and Curettage (D&C): Yes Past Surgical History Abdominal Surgery: No Body Medical Devices: Left kidney stent Cardiac Surgery: No Ear Surgery: No Endocrine Surgery: No Eye Surgery: No Genitourinary Surgery: Yes (LEFT KIDNEY STENT 2008, NEPHROSTOMY BAG 09/21/16) Gynecologic Surgery: Yes Oral Surgery: No Thoracic Surgery: No Other Surgery: Yes (STENT IN LEFT KIDNEY IN 2008) Social History Alcohol Use: No Tobacco Use: Yes (< 1/2 PPD) Substance Use: No Allergies-Medications (Allergen,Severity, Reaction): Coded Allergies: [place] (Verified Allergy, Severe, "THROAT SWELLS; DIFFICULTY BREATHING", ) Reported Meds & Prescriptions Reported Meds & Active Scripts Active Review of Systems Except as stated in HPI: all other systems reviewed are Neg Physical Exam Narrative GENERAL: 26yo F not in distress. SKIN: Warm and dry. HEAD: Atraumatic. Normocephalic. CARDIOVASCULAR: Regular rate and rhythm. No murmur appreciated. RESPIRATORY: No accessory muscle use. Clear to auscultation. Breath sounds equal bilaterally. GASTROINTESTINAL: Abdomen soft, +TTP left periumbilical and lower abdomen. + Suprapubic ttp. BACK: +Left nephrostomy tube in place. No ttp around nephrostomy tube. +CVA ttp on left. MUSCULOSKELETAL: No obvious deformities. No clubbing. No cyanosis. No edema. NEUROLOGICAL: Awake and alert. No obvious cranial nerve deficits. Motor grossly within normal limits. Normal speech. PSYCHIATRIC: Appropriate mood and affect; insight and judgment normal. Data Data Last Documented VS Vital Signs Date Time Temp Pulse Resp B/P Pulse Ox O2 Delivery O2 Flow Rate FiO2 10/04/16 20:00 16 10/04/16 16:14 98.1 78 128/78 99 Room Air Orders Complete Blood Count With Diff (10/04/16 18:12) Basic Metabolic Panel (Bmp) (10/04/16 18:12) Urinalysis - C+S If Indicated (10/04/16 18:12) Ed Urine Pregnancytest Poc (10/04/16 18:12) Urine Culture (10/04/16 18:45) Ceftriaxone Inj (Rocephin Inj) (10/04/16 20:00) Ketorolac Inj (Toradol Inj) (10/04/16 20:15) Labs Laboratory Tests Test 10/04/16 18:45 White Blood Count 6.1 TH/MM3 Red Blood Count 3.64 MIL/MM3 Hemoglobin 10.1 GM/DL Hematocrit 30.8 % Mean Corpuscular Volume 84.7 FL Mean Corpuscular Hemoglobin 27.7 PG Mean Corpuscular Hemoglobin 32.7 % Concent Red Cell Distribution Width 17.9 % Platelet Count 312 TH/MM3 Mean Platelet Volume 8.1 FL Neutrophils (%) (Auto) 45.8 % Lymphocytes (%) (Auto) 43.3 % Monocytes (%) (Auto) 7.0 % Eosinophils (%) (Auto) 3.2 % Basophils (%) (Auto) 0.7 % Neutrophils # (Auto) 2.8 TH/MM3 Lymphocytes # (Auto) 2.7 TH/MM3 Monocytes # (Auto) 0.4 TH/MM3 Eosinophils # (Auto) 0.2 TH/MM3 Basophils # (Auto) 0.0 TH/MM3 CBC Comment DIFF FINAL Differential Comment Urine Color YELLOW Urine Turbidity HAZY Urine pH 7.0 Urine Specific [place] 1.020 Urine Protein 100 mg/dL Urine Glucose (UA) NEG mg/dL Urine Ketones NEG mg/dL Urine Occult Blood LARGE Urine Nitrite POS Urine Bilirubin NEG Urine Urobilinogen LESS THAN 2.0 MG/DL Urine Leukocyte Esterase LARGE Urine RBC /hpf Urine WBC 145 /hpf Urine Squamous Epithelial 1 /hpf Cells Urine Bacteria MOD /hpf Urine Mucus FEW /lpf Urine Yeast ([place]) RARE Microscopic Urinalysis Comment CULTURE INDICATED Sodium Level 141 MEQ/L Potassium Level 3.7 MEQ/L Chloride Level 109 MEQ/L Carbon Dioxide Level 25.1 MEQ/L Anion Gap 7 MEQ/L Blood Urea Nitrogen 12 MG/DL Creatinine 0.70 MG/DL Estimat Glomerular Filtration 122 ML/MIN Rate Random Glucose 79 MG/DL Calcium Level 8.6 MG/DL [facility] Medical Decision Making Medical Screen Exam Complete: Yes Emergency Medical Condition: Yes Differential Diagnosis Pyelonephritis vs. nephrolithiasis vs. cystitis Narrative Course 26yo nontoxic appearing female here with abdominal pain for 1 week. Labs reviewed, no leukocytosis. H/H low at 10.1/30.8 but is at baseline. Creatinine normal at 0.70. UA showed positive nitrite and large leukocyte. Pt given ceftriaxone 1gm IV. Pt given toradol 30mg IV with resolution of abdominal pain. CT abd/pelvis was initially ordered but canceled due to resolution of pain and pt also does not want to wait for it. Pt is well appearing and has appointment with urology so CT is not necessary at this time. Strict return precautions given. Diagnosis Primary Impression: UTI (urinary tract infection) Qualified Code: N39.0 - Urinary tract infection with hematuria, site unspecified Referrals: Erick Galvin DO Patient Instructions: General Instructions Departure Forms: Tests/Procedures Additional Instructions: Please follow up with your urologist in 1-2 days. Return to the ED if symptoms worsen. Med/Other Pt SpecificInfo: Prescription(s) given Scripts Hydrocodone-Acetaminophen (Lortab)5-325 Mg Tab1 Tab PO Q6H PRN (PAIN) #7 TAB Ref 0 Prov:Anaya Hauser 10/04/16 Ciprofloxacin (Cipro)500 Mg Mgu404 Mg PO BID 10 Days Ref 0 Prov:Anaya Hauser DO 10/04/16 Disposition: 01 DISCHARGE HOME Condition: Stable Anaya Hauser DO Oct 04, 2016 20:22
[2016-10-04] MEDS ORDERED: HYDR-3533 PO (21:28)
[2016-10-04] MEDS ORDERED: CIPR-9 PO (21:28)
[2016-11-30] MEDS ORDERED: PERC5TAB12 PO (12:47)
[2016-12-07] MEDS ORDERED: BACT800T5 PO (14:49)
[2016-12-21] MEDS ORDERED: PERC7.5T13 PO (10:19)
[2016-12-21] MEDS ORDERED: DEPO150I IM (10:19)
[2017-01-06] MEDS ORDERED: DIFL100T PO (10:25)
== END 2016-10-04 21:52 | disposition home or self-care (01) ==
LOC: NEPA 16:11
DX: N39.0 Urinary tract infection, site not specified (principal); R11.0 Nausea; F17.210 Nicotine dependence, cigarettes, uncomplicated
CPT/HCPCS: 80048; 81001; 84703; 85025; 87086; 96365; 96375; 99284; J0696; J1885

== ENCOUNTER 2016-10-16 13:29 | Emergency (ER) | payer MEDICAID ==
[~2016-10-16] VITALS: Ht 162.6 cm; Wt 57.0 kg
[~2016-10-16 13:29] MED LIST changes: +CIPR-9 PO; -DOCU1CAP39 PO; +HYDR-3533 PO; -LEVO500T3 PO; -OXYC1TAB36 PO
[2016-10-16 13:31] VITALS: BP 119/74; PULSE 82; RESP 20; TEMP 98.1; O2SAT 100
--- NOTE | 2016-10-16 14:06 | PD ---
HPI Chief Complaint: Front Office Administrator Problem Time Seen by Provider: 13:50 Travel History International Travel<30 days: No Contact w/Intl Traveler<30days: No Traveled to known affect area: No History of Present Illness HPI 26-year-old female with known left nephrolithiasis with retained left stent now with calcification at the proximal and distal and currently managed with indwelling left nephrostomy tube presents for evaluation of left flank pain, suprapubic Pain, left lower quadrant pain, dysuria and vaginal irritation. Symptoms have been going on for one week. She reports a burning sensation when she urinates as well as vaginal irritation, mild left flank pain which is worsened, left lower quadrant pain which is worsened. She also notes that the smell of the urine in her left nephrostomy bag is stronger and she is concerned that she may have infections in both kidneys. She endorses some nausea. No fevers or chills. Last seen on October 04 for similar complaints and felt to have a urinary tract infection, treated with 10 days of Cipro, urine culture grew out gram-positive edmar. She has been unable to follow-up with urologist Dr. galvin secondary to insurance limitations. She has no other complaints. PFSH Past Medical History Arthritis: No Cancer: No Cardiovascular Problems: No Diabetes: No Diminished Hearing: No Endocrine: No Gastrointestinal Disorders: No Genitourinary: Yes (kidney stent) Immune Disorder: No Implanted Vascular Access Dvce: No Kidney Stones: Yes Musculoskeletal: No Neurologic: No Psychiatric: No Reproductive: No Respiratory: No Seizures: No Thyroid Disease: No Ulcer: No ?: Not LMP: 07/05/16 (DEPO) : 5 Para: 4 Miscarriage: 1 : 0 Dilation and Curettage (D&C): Yes Past Surgical History Abdominal Surgery: No Body Medical Devices: Left kidney stent Cardiac Surgery: No Ear Surgery: No Endocrine Surgery: No Eye Surgery: No Genitourinary Surgery: Yes (LEFT KIDNEY STENT 2008, NEPHROSTOMY BAG 09/21/16) Gynecologic Surgery: Yes Oral Surgery: No Thoracic Surgery: No Other Surgery: Yes (STENT IN LEFT KIDNEY IN 2008) Social History Alcohol Use: No Tobacco Use: Yes (< 1/2 PPD) Substance Use: No Allergies-Medications (Allergen,Severity, Reaction): Coded Allergies: [place] (Verified Allergy, Severe, "THROAT SWELLS; DIFFICULTY BREATHING", 08/20) Reported Meds & Prescriptions Reported Meds & Active Scripts Active No Active Prescriptions or Reported Medications Review of Systems Except as stated in HPI: all other systems reviewed are Neg Physical Exam Narrative GENERAL: Well-developed well-nourished female in no acute distress SKIN: Warm and dry. HEAD: Atraumatic. Normocephalic. EYES: Pupils equal and round. No scleral icterus. No injection or drainage. ENT: No nasal bleeding or discharge. Mucous membranes pink and moist. NECK: Trachea midline. No JVD. CARDIOVASCULAR: Regular rate and rhythm. No murmur appreciated. RESPIRATORY: No accessory muscle use. Clear to auscultation. Breath sounds equal bilaterally. GASTROINTESTINAL: Abdomen soft, mild suprapubic and left lower quadrant tenderness without guarding. The left-sided nephrostomy tube is in place with bandages around it. Left nephrostomy bag is full of yellow urine. MUSCULOSKELETAL: No obvious deformities. No edema NEUROLOGICAL: Awake and alert. No obvious cranial nerve deficits. Motor grossly within normal limits. Normal speech. Data Data Last Documented VS Vital Signs Date Time Temp Pulse Resp B/P Pulse Ox O2 Delivery O2 Flow Rate FiO2 10/16/16 13:31 98.1 82 20 119/74 100 Room Air Orders Complete Blood Count With Diff (10/16/16 13:52) Comprehensive Metabolic Panel (10/16/16 13:52) Urinalysis - C+S If Indicated (10/16/16 13:52) Ed Urine Pregnancytest Poc (10/16/16 13:52) Gc And Chlamydia Pcr (10/16/16 14:06) Wet Prep Profile (10/16/16 14:06) Urinalysis - C+S If Indicated (10/16/16 14:21) Sodium Chlor 0.9% 1000 Ml Inj (Ns 1000 M (10/16/16 14:26) Morphine Inj (Morphine Inj) (10/16/16 14:30) Ketorolac Inj (Toradol Inj) (10/16/16 14:30) Urine Culture (10/16/16 14:20) Urine Culture (10/16/16 14:24) Ceftriaxone Inj (Rocephin Inj) (10/16/16 15:30) Labs Laboratory Tests Test 10/16/16 10/16/16 10/16/16 10/16/16 14:03 14:20 14:24 14:55 White Blood Count 4.6 TH/MM3 Red Blood Count 3.55 MIL/MM3 Hemoglobin 10.0 GM/DL Hematocrit 30.0 % Mean Corpuscular Volume 84.7 FL Mean Corpuscular Hemoglobin 28.1 PG Mean Corpuscular Hemoglobin 33.2 % Concent Red Cell Distribution Width 17.6 % Platelet Count 248 TH/MM3 Mean Platelet Volume 8.5 FL Neutrophils (%) (Auto) 43.2 % Lymphocytes (%) (Auto) 41.4 % Monocytes (%) (Auto) 8.6 % Eosinophils (%) (Auto) 6.0 % Basophils (%) (Auto) 0.8 % Neutrophils # (Auto) 2.0 TH/MM3 Lymphocytes # (Auto) 1.9 TH/MM3 Monocytes # (Auto) 0.4 TH/MM3 Eosinophils # (Auto) 0.3 TH/MM3 Basophils # (Auto) 0.0 TH/MM3 CBC Comment DIFF FINAL Differential Comment Sodium Level 142 MEQ/L Potassium Level 4.0 MEQ/L Chloride Level 111 MEQ/L Carbon Dioxide Level 25.1 MEQ/L Anion Gap 6 MEQ/L Blood Urea Nitrogen 12 MG/DL Creatinine 0.61 MG/DL Estimat Glomerular Filtration 143 ML/MIN Rate Random Glucose 90 MG/DL Calcium Level 8.0 MG/DL Total Bilirubin 0.2 MG/DL Aspartate Amino Transf 107 U/L (AST/SGOT) Alanine Aminotransferase 93 U/L (ALT/SGPT) Alkaline Phosphatase 54 U/L Total Protein 6.6 GM/DL Albumin 3.2 GM/DL Urine Color YELLOW YELLOW Urine Turbidity HAZY HAZY Urine pH 6.0 6.5 Urine Specific [place] 1.017 1.014 Urine Protein 30 mg/dL 100 mg/dL Urine Glucose (UA) NEG mg/dL NEG mg/dL Urine Ketones NEG mg/dL NEG mg/dL Urine Occult Blood LARGE MOD Urine Nitrite POS POS Urine Bilirubin NEG NEG Urine Urobilinogen LESS THAN 2.0 LESS THAN 2.0 MG/DL MG/DL Urine Leukocyte Esterase LARGE LARGE Urine RBC /hpf 154 /hpf Urine WBC /hpf /hpf Urine WBC Clumps MANY MANY Urine Squamous Epithelial 6 /hpf 4 /hpf Cells Urine Bacteria OCC /hpf RARE /hpf Urine Mucus MANY /lpf FEW /lpf Microscopic Urinalysis Comment CULTURE CULTURE INDICATED INDICATED Clue Cells (Wet Prep) NONE SEEN Vaginal Trichomonas (Wet Prep) NONE SEEN Vaginal Yeast (Wet Prep) NONE SEEN MDM Medical Decision Making Medical Screen Exam Complete: Yes Emergency Medical Condition: Yes Medical Record Reviewed: Yes Differential Diagnosis Pyelonephritis, cystitis, known hydronephrosis, malfunctioning nephrostomy tube , vaginitis Narrative Course 26 year old female with known left nephrolithiasis with hydronephrosis with left nephrostomy tube in place presents now with 1 week of dysuria, vaginal irritation, suprapubic and left lower quadrant discomfort as well as continued left flank pain. Her left nephrostomy tube is making urine and is not dislodged which does note that the urine has been foul-smelling over the past few days and she is concerned that she may have an infection in her left kidney as well as her right kidney because of the dysuria. She has also recently been on several rounds of antibiotics, most recently Cipro, finished a few days ago now with vaginal irritation, not sexually active. Plan is for basic lab work, urinalysis, pelvic examination. I discussed the case with on-call urologist Dr. Mcnulty who feels that this patient in follow-up as an outpatient but does recommend that the nephrostomy tube be changed every 4 weeks until it is removed. It appears that the last time the nephrostomy tube was placed was on September 20 not quite 4 weeks. Will discuss with on-call interventional radiologist regarding some sort of follow- up plan for nephrostomy replacement. Discussed with Dr. Taylor and we will have the patient call to mention radiology tomorrow to schedule an appointment for Monday to have her nephrostomy tube placed. The patient does report that she is changing her insurance effective November 02 and she will follow up with Dr. Galvin shortly afterwards. Urinalysis is positive however per chart review the past several times that she had a urinalysis there was no infectious etiology culture are all contaminants and therefore given the fact the patient has been on several rounds of antibiotics this past month we will hold off on any additional anabiotic therapy until culture results are completed. Discussed with my attending who agrees with plan of care. The patient was given an outpatient order sheet. Discussed in great detail what the patient needs to do. She is stable for discharge. Diagnosis Primary Impression: Hydronephrosis of left kidney Additional Impression: Nephrostomy complication Additional Instructions: As discussed, call phone #[phone] tomorrow in order to schedule an appointment or left nephrostomy tube placement for this upcoming October 19. Take ibuprofen for pain. Tylenol and codeine for breakthrough pain. Stay well hydrated. Follow-up with Dr. Galvin as soon as possible. Return for any emergent medical conditions. Med/Other Pt SpecificInfo: Prescription(s) given Scripts Acetaminophen-Codeine (Tylenol-Codeine #3)300-30 mg Tab1 Tab PO Q4H PRN (PAIN) # 15 TAB Ref 0 Prov:Serena Simpson MD 10/16/16 Disposition: 01 DISCHARGE HOME Condition: Stable Christiano Benitez Oct 16, 2016 14:06
[2016-10-16 14:14] LABS: BASOPHIL % 0.8 % (0.0-2.0); EOSINOPHIL # 0.3 TH/MM3 (0-0.4); HEMO FLAGS DIFF FINAL; LYMPH % 41.4 % (9.0-44.0); LYMPHOCYTE # 1.9 TH/MM3 (1.0-4.8); MEAN CELL VOLUME 84.7 FL (80.0-100.0); MEAN CORPUSCULAR HEMOGLOBIN 28.1 PG (27.0-34.0); MEAN CORPUSCULAR HGB CONC 33.2 % (32.0-36.0); MONO % 8.6 % (0.0-8.0); NEUT % 43.2 % (16.0-70.0); PLATELET COUNT 248 TH/MM3 (150-450); RED BLOOD COUNT 3.55 MIL/MM3 (4.00-5.30); RED CELL DISTRIBUTION WIDTH 17.6 % (11.6-17.2); WHITE BLOOD COUNT 4.6 TH/MM3 (4.0-11.0)
[2016-10-16] MEDS ORDERED: SODIUM CHLOR 0.9% 1000 ML INJ 1,000 ML IV SCH (14:26)
[2016-10-16] MEDS ORDERED: MORPHINE SULFATE 4 MG/ML INJ IV PUSH ONE (14:30)
[2016-10-16] MEDS ORDERED: KETOROLAC TROMETHAMINE 30 MG/ML (IVP) VIAL IV PUSH ONE (14:30)
[2016-10-16 14:31] LABS: ANION GAP 6 MEQ/L (5-15); AST (GOT) 107 U/L (15-37); BICARBONATE 25.1 MEQ/L (21.0-32.0); BLOOD UREA NITROGEN 12 MG/DL (7-18); CHLORIDE 111 MEQ/L (98-107); GLOMERULAR FILTRATION RATE 143 ML/MIN (>89); SODIUM (NA) 142 MEQ/L (136-145)
[2016-10-16 14:34] LABS: ALKALINE PHOSPHATASE 54 U/L (45-117); ALT (GPT) 93 U/L (10-53); TOTAL BILIRUBIN ADULT 0.2 MG/DL (0.2-1.0)
[2016-10-16 15:02] LABS: BACTERIA, URINE OCC /hpf; BLOOD, URINE LARGE (NEG); COMMENT (UR) CULTURE INDICATED; CULTURE IF INDICATED CULTURE INDICATED; GLUCOSE,URINE NEG (NEG); KETONE, URINE NEG (NEG); MUCUS URINE MANY /lpf (OCC); SQUAMOUS EPITHELIAL CELL URINE 6 /hpf (0-5); URINE COLOR YELLOW (YELLW/STRAW)
[2016-10-16 15:02] LABS: BACTERIA, URINE RARE /hpf; BLOOD, URINE MOD (NEG); COMMENT (UR) CULTURE INDICATED; CULTURE IF INDICATED CULTURE INDICATED; GLUCOSE,URINE NEG (NEG); KETONE, URINE NEG (NEG); MUCUS URINE FEW /lpf (OCC); PH, URINE 6.5 (5.0-8.5); SQUAMOUS EPITHELIAL CELL URINE 4 /hpf (0-5); URINE COLOR YELLOW (YELLW/STRAW)
[2016-10-16 15:03] LABS: NITRITE,URINE POS (NEG)
[2016-10-16 15:05] LABS: NITRITE,URINE POS (NEG)
[2016-10-16] MEDS ORDERED: cefTRIAXone INJ 1,000 MG in SODIUM CHLORIDE 0.9% INJ 100 ML IV ONE (15:30)
[2016-10-16] MEDS ORDERED: TYLETAB34 PO (15:51)
[2016-10-16 21:34] LABS: CHLAMYDIA PCR NOT DETECTED (NOT DETECT); NEISSERIA PCR NOT DETECTED (NOT DETECT)
[2016-11-30] MEDS ORDERED: PERC5TAB12 PO (12:47)
[2016-12-07] MEDS ORDERED: BACT800T5 PO (14:49)
[2016-12-21] MEDS ORDERED: PERC7.5T13 PO (10:19)
[2016-12-21] MEDS ORDERED: DEPO150I IM (10:19)
[2017-01-06] MEDS ORDERED: DIFL100T PO (10:25)
== END 2016-10-16 16:18 | disposition home or self-care (01) ==
LOC: NEPC 13:29
DX: N13.2 Hydronephrosis with renal and ureteral calculous obstruction (principal); N99.528 Other complication of incontinent external stoma of urinary tract; Y84.9 Medical procedure, unspecified as the cause of abnormal reaction of the patient, or of later complication, without mention of misadventure at the time of the procedure; F17.210 Nicotine dependence, cigarettes, uncomplicated
CPT/HCPCS: 80053; 81001; 84703; 85025; 87086; 87210; 87491; 87591; 96374; 96375; 99283; J0696; J1885; J2270; J7030

== ENCOUNTER 2016-10-18 06:16 | Day surgery (SDC) | payer MEDICAID ==
[2016-10-18] VITALS (7 sets, daily range): BP systolic 116–127; BP diastolic 65–82; PULSE 56–81; RESP 16–20; TEMP 97.9; O2SAT 92–96
[~2016-10-18] VITALS: Ht 162.6 cm; Wt 58.0 kg
[~2016-10-18 06:16] MED LIST changes: -CIPR-9 PO; -HYDR-3533 PO; +TYLETAB34 PO
[2016-10-18] MEDS ORDERED: SODIUM CHLOR 0.9% 1000 ML INJ 1,000 ML IV SCH (07:15)
[2016-10-18] MEDS ORDERED: LEVOFLOXACIN 500 MG PREMIX INJ 100 ML IV SCH (08:15)
[2016-10-18] MEDS ORDERED: fentaNYL CITRATE 250 MCG/5 ML AMP ONE (08:44)
[2016-10-18] MEDS ORDERED: MIDAZOLAM HCL 5 MG/5 ML VIAL ONE (08:44)
[2016-10-18] MEDS ORDERED: IOHEXOL 350 MG/ML 50 ML BTL (for RAD DIAG) ONE (09:31)
--- NOTE | 2016-10-19 08:37 | RADRPT ---
EXAM DATE/TIME: 10/18/2016 08:50 [place] COMPARISON: NEPHROSTOMY, LEFT, September 20, 2016, 10:09. INDICATIONS : Patient is in need of an exchange of an existing left nephrostomy tube. MEDICAL HISTORY : History of renal stones, hydronephrosis. SURGICAL HISTORY : History of nephrostomy tube placement, ureteral stent placemet, D and C. ENCOUNTER: Subsequent ACUITY: 4 - 6 months PAIN SCORE: 8/10 LOCATION: Left nephrostomy site FLUORO TIME: 1.5 SEDATION TIME: 30 minutes CONTRAST: 10 cc Omnipaque (iohexol) 350 MEDICATION(S): 1.) 2 mg midazolam (Versed) IV 2.) 100 mcg fentanyl (Sublimaze) IV Vancomycin within 2 hours of procedure, Ancef (or alternative) within 1 hour of procedure. DEVICE(S): 1.) 8 Syri[place] 25cm nephrostomy catheter PROCEDURE : 1. Antegrade pyelogram. 2. Nephrostomy tube exchange. 3. Conscious sedation with continuous EKG and oximetry monitoring. The risks, benefits and alternatives to the procedure were explained and verbal and written consent w as obtained. The site was prepped in sterile fashion. Full sterile technique was used, including ca p, mask, sterile gloves and gown and a large sterile sheet. Hand hygiene and 2% chlorhexidine and/or betadine/alcohol prep was utilized per protocol for cutaneous antisepsis. The skin and subcutaneous tissues were infiltrated with local anesthetic solution. With fluoroscopic guidance antegrade pyelo gram was performed. The exam demonstrates stone encrustation around the proximal portion of the patient's ureteral stent. The collecting system is dilated. Over a guidewire the prescribed nephrostomy tube was placed. Injection of positive contrast demonstra [place] good position of the catheter within the collecting system. Conscious sedation was performed with the prescribed dosages and duration as above. The patient tole rated the procedure well and there were no complications. EKG and oximetry remained stable throughou t the procedure. The patient was sent to post anesthesia recovery in stable condition. CONCLUSION: Uncomplicated nephrostomy tube exchange as above. Luis Mancilla MD on October 19, 2016 at 8:35 Board Certified Radiologist. This report was verified electronically.
[2016-11-30] MEDS ORDERED: PERC5TAB12 PO (12:47)
[2016-12-07] MEDS ORDERED: BACT800T5 PO (14:49)
[2016-12-21] MEDS ORDERED: PERC7.5T13 PO (10:19)
[2016-12-21] MEDS ORDERED: DEPO150I IM (10:19)
[2017-01-06] MEDS ORDERED: DIFL100T PO (10:25)
== END 2016-10-18 12:05 | disposition home or self-care (01) ==
LOC: HROP 06:16 → HRIP 06:22 → HROP 12:05
PROVIDERS: ATTEND Physician Assistant Medical
DX: Z46.6 Encounter for fitting and adjustment of urinary device (principal)
CPT/HCPCS: 50435; 99152; 99153; C1729; C1769; J1956; J2250; J3010; J7030; Q9967

== ENCOUNTER 2016-11-15 09:45 | Emergency (ER) | payer MEDICAID, OTHER ==
[~2016-11-15] VITALS: Ht 162.6 cm; Wt 60.0 kg
[2016-11-15 09:46] VITALS: BP 113/74; PULSE 75; RESP 17; TEMP 97.6; O2SAT 97
[2016-11-15 10:54] LABS: BACTERIA, URINE MANY /hpf; BLOOD, URINE NEG (NEG); GLUCOSE,URINE NEG (NEG); KETONE, URINE NEG (NEG); MUCUS URINE MANY /lpf (OCC); NITRITE,URINE POS (NEG); PH, URINE 8.5 (5.0-8.5); SQUAMOUS EPITHELIAL CELL URINE 3 /hpf (0-5); TRIPLE PHOSPHATE CRYSTAL,URINE MOD /hpf; URINE COLOR YELLOW (YELLW/STRAW)
[2016-11-15 10:55] LABS: COMMENT (UR) CATH-CULTURE IND; CULTURE IF INDICATED CATH CULTURE IND
[2016-11-15] MEDS ORDERED: NORC5TAB PO (11:25)
[2016-11-15] MEDS ORDERED: MOBI15TA PO (11:25)
[2016-11-15] MEDS ORDERED: LEVA500T PO (11:25)
--- NOTE | 2016-11-15 11:25 | PD ---
HPI Chief Complaint: Complaint Time Seen by Provider: 11:00 Travel History International Travel<30 days: No Contact w/Intl Traveler<30days: No Traveled to known affect area: No History of Present Illness HPI 26 years old female complains of increasing left flank pain and left low quadrant abdominal pain. Patient has history of nephrolithiasis, hydronephrosis. Patient status post left nephrostomy tube placement and stent placement in September. Patient has been seen by Dr. Galvin, urologist. Patient states that she has increasing left flank pain and left low quadrant abdominal pain for the past 3 weeks. Patient contacted her urologist and was advised to have UA checked. Patient denies any fever chills. Patient denies any nausea vomiting diarrhea. PFSH Past Medical History Arthritis: No Cancer: No Cardiovascular Problems: No Diabetes: No Diminished Hearing: No Endocrine: No Gastrointestinal Disorders: No Genitourinary: Yes (kidney stent) Immune Disorder: No Implanted Vascular Access Dvce: Yes Kidney Stones: Yes Musculoskeletal: No Neurologic: No Psychiatric: No Reproductive: No Respiratory: No Immunizations Current: No Seizures: No Thyroid Disease: No Ulcer: No Tetanus Vaccination: < 5 Years ?: Not LMP: ON DEPO : 5 Para: 4 Miscarriage: 1 : 0 Dilation and Curettage (D&C): Yes Past Surgical History Abdominal Surgery: No Body Medical Devices: Left kidney stent Cardiac Surgery: No Ear Surgery: No Endocrine Surgery: No Eye Surgery: No Genitourinary Surgery: Yes (LEFT KIDNEY STENT 2008, NEPHROSTOMY BAG 09/21/16) Gynecologic Surgery: Yes Joint Replacement: No Oral Surgery: No Pacemaker: No Thoracic Surgery: No Other Surgery: Yes (Left Kidney stent) Social History Alcohol Use: No Tobacco Use: Yes (< 1/2 PPD) Substance Use: No Allergies-Medications (Allergen,Severity, Reaction): Coded Allergies: [place] (Verified Allergy, Severe, "THROAT SWELLS; DIFFICULTY BREATHING", ) Reported Meds & Prescriptions Reported Meds & Active Scripts Active No Active Prescriptions or Reported Medications Review of Systems General / Constitutional: No: Fever Eyes: No: Visual changes HENT: No: Headaches Cardiovascular: No: Chest Pain or Discomfort Respiratory: No: Shortness of Breath Gastrointestinal: Positive: Abdominal Pain Genitourinary: No: Dysuria Musculoskeletal: No: Pain Skin: No Rash Neurologic: No: Weakness Psychiatric: No: Depression Endocrine: No: Polydipsia Hematologic/Lymphatic: No: Easy Bruising Physical Exam Narrative GENERAL: Well-nourished, well-developed patient. SKIN: Warm and dry. HEAD: Normocephalic. EYES: No scleral icterus. No injection or drainage. NECK: Supple, trachea midline. No JVD or lymphadenopathy. CARDIOVASCULAR: Regular rate and rhythm without murmurs, gallops, or rubs. RESPIRATORY: Breath sounds equal bilaterally. No accessory muscle use. GASTROINTESTINAL: Abdomen soft, non-tender, nondistended. MUSCULOSKELETAL: No cyanosis, or edema. BACK: Patient has moderate tenderness and palpation left flank area. Nephrostomy tube in place. Data Data Last Documented VS Vital Signs Date Time Temp Pulse Resp B/P Pulse Ox O2 Delivery O2 Flow Rate FiO2 11/15/16 09:46 97.6 75 17 113/74 97 Orders Urinalysis - C+S If Indicated (11/15/16 10:30) Urine Culture (11/15/16 07:30) Labs Laboratory Tests Test 11/15/16 07:30 Urine Color YELLOW Urine Turbidity CLOUDY Urine pH 8.5 Urine Specific [place] 1.017 Urine Protein GREATER THAN 600 mg/dL Urine Glucose (UA) NEG mg/dL Urine Ketones NEG mg/dL Urine Occult Blood NEG Urine Nitrite POS Urine Bilirubin NEG Urine Urobilinogen LESS THAN 2.0 MG/DL Urine Leukocyte Esterase LARGE Urine RBC 3 /hpf Urine WBC 1 /hpf Urine Squamous Epithelial 3 /hpf Cells Urine Triple Phosphate MOD /hpf Crystals Urine Amorphous Sediment OCC Urine Bacteria MANY /hpf Urine Mucus MANY /lpf Microscopic Urinalysis Comment CATH-CULTURE IND MDM Medical Decision Making Medical Screen Exam Complete: Yes Emergency Medical Condition: Yes Differential Diagnosis Differential diagnosis including UTI, pyelonephritis, acute exacerbation of chronic pain. Narrative Course 36 years old female with increasing left flank and left low quadrant abdominal pain. History of kidney stone with nephrostomy tube and stent in place. Patient has been seen by urologist. UA positive for bacteria but negative for WBC RBC today. Patient's afebrile and vital signs stable. Diagnosis Primary Impression: Bacteriuria Additional Impression: Nephrolithiasis Patient Instructions: General Instructions Additional Instructions: Take medication as directed for pain. Follow-up with urologist as scheduled. Return if worse. Med/Other Pt SpecificInfo: Prescription(s) given Scripts Hydrocodone-Acetaminophen ([place])5-325 mg Tab1 Tab PO Q6H PRN (PAIN) #5 TAB Ref 0 Prov:Julian Nolan MD 11/15/16 Meloxicam (Mobic)15 Mg Tab15 Mg PO DAILY #30 TAB Ref 0 Prov:Julian Nolan MD 11/15/16 Levofloxacin (Levaquin)500 Mg Akd639 Mg PO DAILY #7 TAB Ref 0 Prov:Julian Nolan MD 11/15/16 Disposition: 01 DISCHARGE HOME Condition: Stable Julian Nolan MD Nov 15, 2016 11:25
[2016-11-30] MEDS ORDERED: PERC5TAB12 PO (12:47)
[2016-12-07] MEDS ORDERED: BACT800T5 PO (14:49)
[2016-12-21] MEDS ORDERED: DEPO150I IM (10:19)
[2016-12-21] MEDS ORDERED: PERC7.5T13 PO (10:19)
[2017-01-06] MEDS ORDERED: DIFL100T PO (10:25)
== END 2016-11-15 13:04 | disposition home or self-care (01) ==
LOC: NEPA 09:45
DX: R82.71 Bacteriuria (principal); N20.0 Calculus of kidney; B96.89 Other specified bacterial agents as the cause of diseases classified elsewhere; F17.210 Nicotine dependence, cigarettes, uncomplicated
CPT/HCPCS: 81001; 87086; 99284

== ENCOUNTER 2016-11-21 07:19 | Day surgery (SDC) | payer OTHER ==
[~2016-11-21] VITALS: Ht 162.6 cm; Wt 59.1 kg
[~2016-11-21 07:19] MED LIST changes: +LEVA500T PO; +MOBI15TA PO; +NORC5TAB PO; -TYLETAB34 PO
[2016-11-21 07:33] VITALS: BP 100/74; PULSE 76; RESP 22; TEMP 98.5; O2SAT 99
[2016-11-21] MEDS ORDERED: SODIUM CHLORIDE 0.9% 1000 ML IV SCH (09:15)
[2016-11-21] MEDS ORDERED: LEVOFLOXACIN 500 MG PREMIX INJ 100 ML IV ONE (09:31)
[2016-11-21] MEDS ORDERED: MIDAZOLAM HCL 2 MG/2 ML VIAL ONE (09:32)
[2016-11-21] MEDS ORDERED: IOHEXOL 350 MG/ML 50 ML BTL (for RAD DIAG) ONE (10:04)
[2016-11-21 10:15] VITALS: BP 109/72; PULSE 76; RESP 16; TEMP 97.8; O2SAT 100
--- NOTE | 2016-11-21 10:16 | PD.RAD ---
Post Procedure Progress Note Pre Procedure Diagnosis: (1) Pyelonephritis (2) Nephrolithiasis (3) Hydronephrosis of left kidney Post Procedure Diagnosis: (1) Pyelonephritis (2) Hydronephrosis of left kidney (3) Nephrolithiasis Procedure Date: Nov 21, 2016 Supervising Radiologist: Luis Mancilla Plan of Activity Patient to Unit: [facility] Patient Condition: Good Additional Comments: Nephrostomy tube changed without difficulty. Full dictated report to follow. See PACS Report for procedural detail/treatment Luis Mancilla MD Nov 21, 2016 10:16
[2016-11-21 10:30] VITALS: BP 110/72; PULSE 76; RESP 16; O2SAT 100
[2016-11-21 10:45] VITALS: BP 131/90; PULSE 84; RESP 20; O2SAT 100
[2016-11-21 11:15] VITALS: BP 128/82; PULSE 66; RESP 16; O2SAT 100
--- NOTE | 2016-11-21 16:32 | RADRPT ---
EXAM DATE/TIME: 11/21/2016 09:07 [facility] COMPARISON: ANTEGRADE PYELOGRAM, LEFT, November 21, 2016, 0:00. INDICATIONS : Patient is in need of an exchange of existing left nephrostomy tube due to continued pain and renal s tone. MEDICAL HISTORY : History of nephrolithiasis, hydronephrosis. SURGICAL HISTORY : History of nephrostomy tube, ureteral stent, d and c. ENCOUNTER: Subsequent ACUITY: 3 months PAIN SCORE: 10/10 LOCATION: Left upper and lower quadrants FLUORO TIME: 1.95 minutes IMAGE SERIES: 0 SEDATION TIME: 15 minutes CONTRAST: 10 cc Omnipaque (iohexol) 350 MEDICATION(S): 1.) 2 mg midazolam (Versed) IV 2.) 100 mcg fentanyl (Sublimaze) IV 3.) 500 mg levofloxacin (Levaquin) IV DEVICE(S): 1.) 8 Arabic 25cm Flexima catheter PROCEDURE : 1. Antegrade pyelogram. 2. Nephrostomy tube exchange. 3. Conscious sedation with continuous EKG and oximetry monitoring. The risks, benefits and alternatives to the procedure were explained and verbal and written consent w as obtained. The site was prepped in sterile fashion. Full sterile technique was used, including ca p, mask, sterile gloves and gown and a large sterile sheet. Hand hygiene and 2% chlorhexidine and/or betadine/alcohol prep was utilized per protocol for cutaneous antisepsis. The skin and subcutaneous tissues were infiltrated with local anesthetic solution. With fluoroscopic guidance antegrade pyelo gram was performed. Over a guidewire the prescribed nephrostomy tube was placed. Injection of positive contrast demonstra [place] good position of the catheter within the collecting system. Conscious sedation was performed with the prescribed dosages and duration as above in the presence of an independent trained radiology nurse to assist in the monitoring of the patient. EKG and oximetry remained stable throughout the procedure. The patient tolerated the procedure well and there were n o complications. The patient was sent to post anesthesia recovery in stable condition. CONCLUSION: Uncomplicated nephrostomy tube exchange as above. Luis Mancilla MD on November 21, 2016 at 16:30 Board Certified Radiologist. This report was verified electronically.
[2016-11-30] MEDS ORDERED: PERC5TAB12 PO (12:47)
[2016-12-07] MEDS ORDERED: BACT800T5 PO (14:49)
[2016-12-21] MEDS ORDERED: DEPO150I IM (10:19)
[2016-12-21] MEDS ORDERED: PERC7.5T13 PO (10:19)
[2017-01-06] MEDS ORDERED: DIFL100T PO (10:25)
== END 2016-11-21 11:30 | disposition home or self-care (01) ==
LOC: HROP 07:19 → HRIP 07:20 → HROP 11:30
PROVIDERS: ATTEND Urology
DX: N12 Tubulo-interstitial nephritis, not specified as acute or chronic (principal); N20.0 Calculus of kidney
CPT/HCPCS: 50435; 99152; C1729; C1769; J1956; J2250; J3010; J7030; Q9967

== ENCOUNTER → 2016-11-30 | Outpatient (CLI) | payer OTHER ==
[~2016-11-30] MED LIST changes: +BACT800T5 PO; +DEPO150I IM; +DICL75TA PO; +DIFL100T PO; +FUROSEMIDE 40 MG/4 ML VIAL ONE; -LEVA500T PO; -MOBI15TA PO; +PERC5TAB12 PO; +PERC7.5T13 PO; +PYRI200T4 PO
--- NOTE | 2016-11-30 13:43 | RADRPT ---
EXAM DATE/TIME: 11/30/2016 11:35 [place] Corrected on: November 30, 2016; [facility] COMPARISON: CT ABDOMEN & PELVIS W/O CONTRAST, September 24, 2016, 21:22. INDICATIONS : Evaluate left kidney function after left nephrostomy tube placement. DOSE: 20.7 mCi Tc99m DTPA IV MEDICATION: 40 mg Lasix IV MEDICAL HISTORY : None SURGICAL HISTORY : None. ENCOUNTER: [facility] ACUITY: 3 months PAIN SCALE: 4/10 LOCATION: Bilateral lower quadrant TECHNIQUE: Dynamic images were performed with the nephrostomy tube unclamped. FINDINGS: Splenic renal function is 51% on the left and 48% on the right. There is good washout on the left wi th Lasix. There is no effect on the left with nephrostomy tube open. CONCLUSION: Split renal function as described above. Krzysztof Mancilla MD FACR on November 30, 2016 at 13:40 Board Certified Radiologist. This report was verified electronically. Krzysztof Mancilla MD FACR on November 30, 2016 at 14:49 Board Certified Radiologist. This report was verified electronically.
--- NOTE | 2016-11-30 14:31 | RADRPT ---
EXAM DATE/TIME: 11/30/2016 12:14 [facility] COMPARISON: No previous studies available for comparison. INDICATIONS : Obstruction of left ureteropelvic junction due to stone. Left encrusted ureteral stent. MEDICAL HISTORY : Abdominal pain. Nausea. Hematuria. UTI. SURGICAL HISTORY : Dilation and curettage. Renal stent, left. Left nephrostomy tube. ENCOUNTER: Subsequent ACUITY: 2 months PAIN SCORE: 5/10 LOCATION: Left flank FINDINGS: Nephrostomy tube in good position on the left. Patient has a bladder stone encysted around a stent. A second stone is seen encysted in the proximal ureter. Bowel gas is unremarkable. Portable is vis ualized is unremarkable. CONCLUSION: Calcified encrusted stent as described above. There are no calcifications on the right. Krzysztof Mancilla MD FACR on November 30, 2016 at 13:52 Board Certified Radiologist. This report was verified electronically.
== END ==
LOC: HRAD 10:54
PROVIDERS: ATTEND Urology
DX: N20.1 Calculus of ureter (principal)
CPT/HCPCS: 74000; 78708; A9539; J1940

== ENCOUNTER 2016-12-05 12:27 | Emergency (ER) | payer OTHER ==
[~2016-12-05] VITALS: Ht 162.6 cm; Wt 56.5 kg
[~2016-12-05 12:27] MED LIST changes: -BACT800T5 PO; -DEPO150I IM; -DICL75TA PO; -DIFL100T PO; -FUROSEMIDE 40 MG/4 ML VIAL ONE; -PERC7.5T13 PO; -PYRI200T4 PO
[2016-12-05 12:29] VITALS: BP 103/63; PULSE 86; RESP 20; TEMP 97.8; O2SAT 99
--- NOTE | 2016-12-05 14:01 | PD ---
Physical Exam Date Seen by Provider: Dec 05, 2016 Time Seen by Provider: 13:58 Narrative 26 YOBF WITH 2 WEEK L UROSTOMY TUB AND BLADDER STONE. INCREASED PAIN SINCE YEST. WORSE WITH WALKING. NO FEVER POS CHILLS AND NAUSEA. NO ABD PAIN VSS. AWAITING BED PLACEMENT Data Data Last Documented VS Vital Signs Date Time Temp Pulse Resp B/P Pulse Ox O2 Delivery O2 Flow Rate FiO2 12/05/16 12:29 97.8 86 20 103/63 99 Room Air [facility] Medical Record Reviewed: Yes Supervised Visit with JOHNATHAN: Yes Alvaro Ma Dec 05, 2016 14:01
--- NOTE | 2016-12-05 16:42 | PD ---
HPI Chief Complaint: Complaint Time Seen by Provider: 16:38 Travel History International Travel<30 days: No Contact w/Intl Traveler<30days: No Traveled to known affect area: No History of Present Illness HPI Patient comes to the emergency department complaining of shortness and pain in the left lower quadrant of her abdomen that began yesterday. Patient states she has a kidney stone there. Patient had her nephrectomy tube exchanged on the of last month secondary to continued pain. Patient denies any fevers, nausea, vomiting, diarrhea, vaginal discharge, back pain, or . Patient states she just states she tried taking a shower for this with no improvement of her symptoms. Pain is worse with walking. Patient reports she last had a normal urination around 11 this morning, patient states since being in the emergency department she tried voiding once had a little bit of urine. Patient reports her urologist is Dr. Galvin. [facility] Past Medical History Arthritis: No Cancer: No Cardiovascular Problems: No Diabetes: No Diminished Hearing: No Endocrine: No Gastrointestinal Disorders: No Hepatitis: No Hiatal Hernia: No Immune Disorder: No Implanted Vascular Access Dvce: Yes Kidney Stones: Yes Musculoskeletal: No Neurologic: No Psychiatric: No Reproductive: No Respiratory: No Immunizations Current: No Seizures: No Thyroid Disease: No Ulcer: No ?: Not LMP: DEPO : 5 Para: 4 Miscarriage: 1 : 0 Dilation and Curettage (D&C): Yes Past Surgical History Abdominal Surgery: No AICD: No Body Medical Devices: Left kidney stent Cardiac Surgery: No Ear Surgery: No Endocrine Surgery: No Eye Surgery: No Genitourinary Surgery: No Gynecologic Surgery: Yes (D&C) Joint Replacement: No Oral Surgery: No Pacemaker: No Thoracic Surgery: No Other Surgery: Yes (Left Kidney stent) Social History Alcohol Use: No Tobacco Use: Yes (< 1/2 PPD) Substance Use: No Allergies-Medications (Allergen,Severity, Reaction): Coded Allergies: [place] (Verified Allergy, Severe, "THROAT SWELLS; DIFFICULTY BREATHING", 12/05/16) Reported Meds & Prescriptions Reported Meds & Active Scripts Active Diclofenac Sodium DR (Diclofenac Sodium) 75 Mg Tabdr 75 Mg PO Q12HR PRN Pyridium (Phenazopyridine HCl) 200 Mg Tab 200 Mg PO Q8HR 6 Days Bactrim DS (Sulfamethoxazole-Trimethoprim) 800-160 Mg Tab 1 Tab PO BID Percocet (Oxycodone-Acetaminophen) 5-325 mg Tab 1-2 Tab PO Q6H PRN Review of Systems Except as stated in HPI: all other systems reviewed are Neg Physical Exam Narrative GENERAL: Well-developed, well nourished, in no acute distress, and non-ill appearing. SKIN: Focused skin assessment warm and dry. HEAD: Atraumatic. Normocephalic. EYES: Pupils equal and round. EOMI. No scleral icterus. No injection or drainage. ENT: No nasal bleeding or discharge. Mucous membranes pink and moist. NECK: Trachea midline. Supple. No nuclear rigidity. RESPIRATORY: No accessory muscle use. No respiratory distress. GASTROINTESTINAL: Abdomen soft, tenderness left lower quadrant/suprapubic region , nondistended. Hepatic and splenic margins not palpable. Normal bowel sounds 4. No pulsatile mass. Nephrectomy tube noted left CVA is dry clean intact without signs of infection or drainage. MUSCULOSKELETAL: No obvious deformities. No clubbing. No cyanosis. No edema. Full range of motion. NEUROLOGICAL: Awake and alert. No obvious cranial nerve deficits. Motor grossly within normal limits. Normal speech. PSYCHIATRIC: Appropriate mood and affect; insight and judgment normal. Data Data Last Documented VS Vital Signs Date Time Temp Pulse Resp B/P Pulse Ox O2 Delivery O2 Flow Rate FiO2 12/05/16 12:29 97.8 86 20 103/63 99 Room Air Orders Complete Blood Count With Diff (12/05/16 16:36) Comprehensive Metabolic Panel (12/05/16 16:36) Urinalysis - C+S If Indicated (12/05/16 16:36) Iv Access Insert/Monitor (12/05/16 16:36) Ed Urine Pregnancytest Poc (12/05/16 16:36) Ondansetron Inj (Zofran Inj) (12/05/16 17:45) Ketorolac Inj (Toradol Inj) (12/05/16 17:45) Ondansetron Odt (Zofran Odt) (12/05/16 17:45) Ketorolac Inj (Toradol Inj) (12/05/16 17:45) Urine Culture (12/05/16 16:55) Sulfamet-Trimeth Ds 800-160 Mg (Bactrim (12/05/16 18:00) Labs Laboratory Tests Test 12/05/16 16:55 White Blood Count 5.2 TH/MM3 Red Blood Count 4.79 MIL/MM3 Hemoglobin 13.3 GM/DL Hematocrit 44.0 % Mean Corpuscular Volume 91.8 FL Mean Corpuscular Hemoglobin 27.7 PG Mean Corpuscular Hemoglobin 30.2 % Concent Red Cell Distribution Width 16.6 % Platelet Count 121 TH/MM3 Mean Platelet Volume 9.2 FL Neutrophils (%) (Auto) 30.2 % Lymphocytes (%) (Auto) 59.3 % Monocytes (%) (Auto) 5.9 % Eosinophils (%) (Auto) 3.9 % Basophils (%) (Auto) 0.7 % Neutrophils # (Auto) 1.6 TH/MM3 Lymphocytes # (Auto) 3.1 TH/MM3 Monocytes # (Auto) 0.3 TH/MM3 Eosinophils # (Auto) 0.2 TH/MM3 Basophils # (Auto) 0.0 TH/MM3 CBC Comment AUTO DIFF Differential Total Cells 100 Counted Neutrophils % (Manual) 37 % Lymphocytes % 52 % Monocytes % 6 % Eosinophils % 5 % Neutrophils # (Manual) 1.9 TH/MM3 Differential Comment FINAL DIFF MANUAL Platelet Estimate LOW Platelet Morphology Comment NORMAL Ovalocytes 1+ Urine Color YELLOW Urine Turbidity CLOUDY Urine pH 8.0 Urine Specific [place] 1.013 Urine Protein 100 mg/dL Urine Glucose (UA) NEG mg/dL Urine Ketones 10 mg/dL Urine Occult Blood MOD Urine Nitrite POS Urine Bilirubin NEG Urine Urobilinogen LESS THAN 2.0 MG/DL Urine Leukocyte Esterase LARGE Urine RBC /hpf Urine WBC 107 /hpf Urine Squamous Epithelial <1 /hpf Cells Urine Amorphous Sediment RARE Urine Bacteria MANY /hpf Urine Mucus FEW /lpf Microscopic Urinalysis Comment CULTURE INDICATED Sodium Level 137 MEQ/L Potassium Level 5.1 MEQ/L Chloride Level 108 MEQ/L Carbon Dioxide Level 20.0 MEQ/L Anion Gap 9 MEQ/L Blood Urea Nitrogen 18 MG/DL Creatinine 0.76 MG/DL Estimat Glomerular Filtration 111 ML/MIN Rate Random Glucose 64 MG/DL Calcium Level 9.4 MG/DL Total Bilirubin 0.6 MG/DL Aspartate Amino Transf 46 U/L (AST/SGOT) Alanine Aminotransferase 27 U/L (ALT/SGPT) Alkaline Phosphatase 67 U/L Total Protein 9.0 GM/DL Albumin 4.1 GM/DL [facility] Medical Decision Making Medical Screen Exam Complete: Yes Emergency Medical Condition: Yes Differential Diagnosis UTI, pyelonephritis, acute on chronic pain, renal calculi, other Narrative Course Patient in no obvious distress upon re-evaluation. All pertinent laboratory result(s) discussed with patient. I discussed patient with Dr. Hauser, who saw and evaluated the patient and is in agreement with plan of care and disposition. Any questions/concerns in reference to patient diagnosis/condition discussed and clarified prior to patient's discharge. Reinforced sheer importance of close follow up with patient's primary physician or primary care clinic. Instructed patient to return to ED immediately, if symptoms return/ worsen. Pt showed understanding of above instructions. Further instructions and recommendations were detailed in discharge paperwork. Pt ambulated without difficulty out of ED at discharge. Diagnosis Primary Impression: UTI (urinary tract infection) Qualified Code: N39.0 - Urinary tract infection with hematuria, site unspecified Patient Instructions: General Instructions, Urinary Tract Infection in Women ( ED) Additional Instructions: Follow-up with your primary care physician and urologist this week for reevaluation. Take all medication as prescribed. Return to the emergency department if symptoms get worse. Med/Other Pt SpecificInfo: Prescription(s) given Scripts Diclofenac Sodium DR 75 Mg Tabdr75 Mg PO Q12HR PRN (PAIN SCALE 1 TO 10) #12 TAB Ref 0 Prov:Anaya Hauser DO 12/05/16 Phenazopyridine (Pyridium)200 Mg Ocr248 Mg PO Q8HR 6 Days Ref 0 Prov:Anaya Hauser DO 12/05/16 Sulfamethoxazole-Trimethoprim (Bactrim DS)800-160 Mg Tab1 Tab PO BID #20 TAB Ref 0 Prov:Anaya Hauser DO 12/05/16 Disposition: 01 DISCHARGE HOME Condition: Stable Abilio Rg Dec 05, 2016 16:42
[2016-12-05 17:45] LABS: AUTOMATED NEUTROPHIL # 1.6 TH/MM3 (1.8-7.7); BASOPHIL % 0.7 % (0.0-2.0); EOSINOPHIL # 0.2 TH/MM3 (0-0.4); EOSINOPHIL % 3.9 % (0.0-4.0); LYMPH % 59.3 % (9.0-44.0); LYMPHOCYTE # 3.1 TH/MM3 (1.0-4.8); MEAN CELL VOLUME 91.8 FL (80.0-100.0); MEAN CORPUSCULAR HEMOGLOBIN 27.7 PG (27.0-34.0); MEAN CORPUSCULAR HGB CONC 30.2 % (32.0-36.0); MONO % 5.9 % (0.0-8.0); NEUT % 30.2 % (16.0-70.0); PLATELET COUNT 121 TH/MM3 (150-450); RED BLOOD COUNT 4.79 MIL/MM3 (4.00-5.30); RED CELL DISTRIBUTION WIDTH 16.6 % (11.6-17.2); WHITE BLOOD COUNT 5.2 TH/MM3 (4.0-11.0)
[2016-12-05] MEDS ORDERED: KETOROLAC TROMETHAMINE 60 MG/2 ML (IM) VIAL IM ONE (17:45)
[2016-12-05] MEDS ORDERED: KETOROLAC TROMETHAMINE 30 MG/ML (IVP) VIAL IV PUSH ONE (17:45)
[2016-12-05] MEDS ORDERED: ONDANSETRON ODT 4 MG TAB PO ONE (17:45)
[2016-12-05] MEDS ORDERED: ONDANSETRON HCL 4 MG/2 ML VIAL IV PUSH ONE (17:45)
[2016-12-05 17:46] LABS: HEMO FLAGS AUTO DIFF
[2016-12-05 17:51] LABS: BACTERIA, URINE MANY /hpf; BLOOD, URINE MOD (NEG); COMMENT (UR) CULTURE INDICATED; CULTURE IF INDICATED CULTURE INDICATED; GLUCOSE,URINE NEG (NEG); KETONE, URINE 10 mg/dL (NEG); MUCUS URINE FEW /lpf (OCC); SQUAMOUS EPITHELIAL CELL URINE <1 /hpf (0-5); URINE COLOR YELLOW (YELLW/STRAW)
[2016-12-05 17:52] LABS: NITRITE,URINE POS (NEG)
[2016-12-05] MEDS ORDERED: SULFAMETHOXAZOLE-TRIMETHOPRIM DS 800-160 MG TAB PO ONE (18:00)
[2016-12-05 18:05] LABS: EOSINOPHILS 5 % (0-4); NEUTROPHIL # MANUAL DIFF 1.9 TH/MM3 (1.8-7.7); OVALOCYTES 1+ (NORMAL); PLATELET ESTIMATE SMEAR LOW (NORMAL); PLATELET MORPHOLOGY NORMAL (NORMAL); POLYS (SEG NEUTROPHILS) 37 % (16-70); SCAN/DIFF FINAL DIFF MANUAL; WBC DIFF SAMPLE 100
[2016-12-05 18:18] LABS: ALKALINE PHOSPHATASE 67 U/L (45-117); ALT (GPT) 27 U/L (10-53); ANION GAP 9 MEQ/L (5-15); AST (GOT) 46 U/L (15-37); BLOOD UREA NITROGEN 18 MG/DL (7-18); CHLORIDE 108 MEQ/L (98-107); GLOMERULAR FILTRATION RATE 111 ML/MIN (>89); POTASSIUM 5.1 MEQ/L (3.5-5.1); SODIUM (NA) 137 MEQ/L (136-145); TOTAL BILIRUBIN ADULT 0.6 MG/DL (0.2-1.0)
[2016-12-05] MEDS ORDERED: BACT800T5 PO (18:51)
[2016-12-05] MEDS ORDERED: DICL75TA PO (18:51)
[2016-12-05] MEDS ORDERED: PYRI200T4 PO (18:51)
[2016-12-07] MEDS ORDERED: BACT800T5 PO (14:49)
[2016-12-21] MEDS ORDERED: DEPO150I IM (10:19)
[2016-12-21] MEDS ORDERED: PERC7.5T13 PO (10:19)
[2017-01-06] MEDS ORDERED: DIFL100T PO (10:25)
== END 2016-12-05 19:08 | disposition home or self-care (01) ==
LOC: NEPE 12:27
DX: N39.0 Urinary tract infection, site not specified (principal); B96.89 Other specified bacterial agents as the cause of diseases classified elsewhere; Z87.442 Personal history of urinary calculi; Z43.6 Encounter for attention to other artificial openings of urinary tract; Z98.890 Other specified postprocedural states
CPT/HCPCS: 80053; 81001; 84703; 85007; 85027; 87086; 96372; 99283; J1885

== ENCOUNTER 2016-12-22 09:13 | Inpatient (IN) | payer OTHER ==
[~2016-12-22] VITALS: Ht 162.6 cm; Wt 55.4 kg
[~2016-12-22 09:13] MED LIST changes: +BACT800T5 PO; +DEPO150I IM; -NORC5TAB PO; -PERC5TAB12 PO; +PERC7.5T13 PO
[2016-12-22] MEDS ORDERED: AMPICILLIN 1 GM/NS 100 ML IV SCH ×2 (09:45)
[2016-12-22] MEDS ORDERED: GENTAMICIN INJ 240 MG in SODIUM CHLORIDE 0.9% INJ 100 ML IV SCH (09:45)
[2016-12-22 09:52] VITALS: BP 109/69; PULSE 86; RESP 20; TEMP 97.8; O2SAT 100
[2016-12-22] MEDS ORDERED: SODIUM CHLORID 0.9% 500 ML IV PRN (10:00)
[2016-12-22] MEDS ORDERED: POVIDONE IODINE 5% (ANTISEPSIS KIT) 4 APPLICATIONS EACH NARE PRN (10:00)
[2016-12-22] MEDS ORDERED: METOPROLOL TARTRATE 25 MG TAB PO PRN (10:00)
[2016-12-22] MEDS ORDERED: LACTATED RINGER'S 1000 ML IV PRN (10:00)
[2016-12-22] MEDS ORDERED: CHLORHEXIDINE GLUCONATE 2 % 1 PACK (2 CLOTHS) TOPICAL PRN (10:00)
[2016-12-22] MEDS ORDERED: INSULIN HUMAN REGULAR 1,000 UNITS/10 ML VIAL SQ PRN (10:00)
[2016-12-22 10:21] LABS: AUTOMATED NEUTROPHIL # 1.9 TH/MM3 (1.8-7.7); BASOPHIL % 0.7 % (0.0-2.0); EOSINOPHIL # 0.3 TH/MM3 (0-0.4); EOSINOPHIL % 8.9 % (0.0-4.0); HEMATOCRIT 38.6 % (35.0-46.0); HEMO FLAGS DIFF FINAL; LYMPHOCYTE # 1.2 TH/MM3 (1.0-4.8); MEAN CELL VOLUME 86.1 FL (80.0-100.0); MEAN CORPUSCULAR HEMOGLOBIN 28.4 PG (27.0-34.0); MONO % 10.2 % (0.0-8.0); NEUT % 49.2 % (16.0-70.0); PLATELET COUNT 201 TH/MM3 (150-450); RED BLOOD COUNT 4.48 MIL/MM3 (4.00-5.30); RED CELL DISTRIBUTION WIDTH 15.7 % (11.6-17.2); WHITE BLOOD COUNT 3.9 TH/MM3 (4.0-11.0)
[2016-12-22] MEDS ORDERED: ONDANSETRON HCL 4 MG/2 ML VIAL IV PUSH ONE (12:00)
[2016-12-22] MEDS ORDERED: LACTATED RINGER'S 1000 ML INJ 2,000 ML IV ONE (12:00)
[2016-12-22] MEDS ORDERED: PROPOFOL 200 MG/20 ML AMP IV ONE (12:00)
[2016-12-22] MEDS ORDERED: NEOSTIGMINE 3 MG/3 ML SYR IV ONE (12:00)
[2016-12-22] MEDS ORDERED: ACETAMINOPHEN 1000 MG/100 ML VIAL IV ONE ×2 (12:00→12:49)
[2016-12-22] MEDS ORDERED: FAMOTIDINE 20 MG/2 ML VIAL ONE (12:14)
[2016-12-22] MEDS ORDERED: MIDAZOLAM HCL 2 MG/2 ML VIAL ONE (12:14)
[2016-12-22] MEDS ORDERED: fentaNYL CITRATE 250 MCG/5 ML AMP ONE ×2 (12:50→16:47)
[2016-12-22] MEDS ORDERED: IOHEXOL 350 MG/ML 50 ML BTL (for RAD DIAG) ONE (14:07)
[2016-12-22] MEDS ORDERED: ACETAMINOPHEN 650 MG/20.3 ML UDC PO PRN (16:30)
[2016-12-22] MEDS ORDERED: diphenhydrAMINE HCL 50 MG/ML VIAL IV PUSH PRN (16:30)
[2016-12-22] MEDS ORDERED: *MEPERIDINE 25 MG INJ VIAL PERIprocedural Use ONLY ONE (16:38)
--- NOTE | 2016-12-22 16:42 | PD.OP ---
Operative Report Date of Surgery: Dec 22, 2016 Preoperative Diagnosis: Left renal calculus Left ureteral calculus Bladder calculus Encrusted JJ stent Postoperative Diagnosis: Same Procedure: Left percutaneous nephrolithotomy; left antegrade nephrostogram Cystoscopy litholapaxy of bladder calculus Left ureteroscopy laser lithotripsy Left double-J stent removal Left ureteral catheter placement Anesthesia: RUBENA Surgeon: Erick Galvin Account Support Analyst(s): None Resident Surgeon: None Operation and Findings: 26-year-old female with a history of a left encrusted stent for over 7 years. She required placement of a left percutaneous nephrostomy tube a few months ago to provide drainage. Renal scan was performed demonstrating good function of the left kidney. She had a large stone in the left UPJ region measuring 2 x 1 cm in size. She had a 7 x 6 cm bladder calculus encrusted to the left stent in the bladder. She also had stone fragments along the distal left ureter. Decision was made to bring the patient to the operating room to undergo a left preteens nephrolithotomy followed by cystoscopy litholapaxy and ureteroscopy. Risk and benefits were discussed and she is willing to proceed. Patient is brought to the operating room identify myself as Jose Ceballos. She is placed in the prone position after she received general endotracheal tube anesthesia. She was prepped and draped in usual sterile fashion and received preprocedure antibiotics. 11 blade was used to make a small elongated incision where the insertion of the left percutaneous nephrostomy tube was. The nylon suture was cut and a Amplatz superstiff wire was passed through the catheter. The wire was able to migrate down to the bladder region. The small nephrostomy tube was removed. A NephroMax balloon dilator was then passed into the area near the stent over the wire and dilated up to a pressure 20 mmHg. This was held for approximately 2 minutes. The sheath was advanced over the dilated balloon and placed in good position. The balloon was deflated and removed. The nephroscope was then inserted and the stone was identified at the area of the UPJ. Cyber wand was then used to fragment up the stone retrieval stone fragments. FloSeal was then used and passed through the sheath into the area of the collecting system. A 20 [place] tip catheter was then followed with 5 cc placed in the balloon as it was in good position. Antegrade nephrostogram confirmed good position of Cates catheter. 2-0 silk sutures were then used to close the wound and anchored the catheter. She was then placed in the dorsal lithotomy position. She was prepped and draped in usual sterile fashion. The nephroscope was passed into the bladder and a large bladder stone was identified. Cyber wand was then used to break up the entire bladder calculus. Stone fragments were encrusted within the stone. The cystoscope was then passed into the bladder and using the Elic evacuator, the stone fragments were collected. Once the bladder was completely clean of stone fragments, attention was directed to the remaining stone encrusted stent in the distal left ureter. The rigid ureteroscope was then passed into the distal left ureter and using the 365 laser fiber at a setting of 8 and 800 the stone was fragmented. The stent was then visualized and the cystoscope was then passed back into the bladder and using alligator forcep and was grasped and removed. A 35 sensor wire was then passed up into the left kidney and then a ureteral catheter was then passed over the wire left in good position. Cates catheter was inserted to the bladder and the catheter was attached to the ureteral catheter. She was awoken and transferred to recovery in stable condition. Erick Galvin DO Dec 22, 2016 16:42
[2016-12-22] MEDS ORDERED: MORPHINE SULFATE 4 MG/ML INJ ONE (16:48)
[2016-12-22 17:13] LABS: HEMATOCRIT 41.4 % (35.0-46.0); MEAN CORPUSCULAR HEMOGLOBIN 27.6 PG (27.0-34.0); MEAN CORPUSCULAR HGB CONC 31.4 % (32.0-36.0); PLATELET COUNT 191 TH/MM3 (150-450); RED CELL DISTRIBUTION WIDTH 16.2 % (11.6-17.2); REVIEW FLAG FINAL; WHITE BLOOD COUNT 6.5 TH/MM3 (4.0-11.0)
[2016-12-22] MEDS ORDERED: DO NOT ADM ANY ANTICOAGULANT DRUGS PRN (17:15)
[2016-12-22] MEDS: BELLADONNA ALKALOIDS/OPIUM 60 MG SUPP RECTAL PRN (17:15)
[2016-12-22] MEDS: AMPICILLIN INJ 1,000 MG in SODIUM CHLORIDE 0.9% INJ 100 ML IV SCH (18:00)
[2016-12-22] MEDS: oxyCODONE/ACETAMINOPHEN 7.5 MG/325 MG TAB PO PRN (18:35)
[2016-12-22] MEDS: HYDROmorphone HCL PF 1 MG/ML VIAL IV PUSH PRN ×2 (18:57→23:22)
[2016-12-22 20:10] VITALS: BP 124/73; PULSE 69; RESP 16; TEMP 95.3; O2SAT 99
[2016-12-22 21:07] LABS: BICARBONATE 21.6 MEQ/L (21.0-32.0); POTASSIUM 3.9 MEQ/L (3.5-5.1)
[2016-12-22] MEDS: ONDANSETRON HCL 4 MG/2 ML VIAL IV PUSH PRN (21:08)
[2016-12-23] VITALS (8 sets, daily range): BP systolic 104–118; BP diastolic 64–75; PULSE 85–92; RESP 16–17; TEMP 97.4–99.4; O2SAT 96–98
[2016-12-23] MEDS: AMPICILLIN INJ 1,000 MG in SODIUM CHLORIDE 0.9% INJ 100 ML IV SCH ×2 (00:15→06:10)
[2016-12-23] MEDS: BELLADONNA ALKALOIDS/OPIUM 60 MG SUPP RECTAL PRN ×3 (01:38→18:11)
[2016-12-23] MEDS: ONDANSETRON HCL 4 MG/2 ML VIAL IV PUSH PRN (03:45)
[2016-12-23] MEDS: HYDROmorphone HCL PF 1 MG/ML VIAL IV PUSH PRN ×5 (03:45→20:14)
[2016-12-23 08:09] LABS: HEMATOCRIT 31.7 % (35.0-46.0); MEAN CELL VOLUME 85.2 FL (80.0-100.0); MEAN CORPUSCULAR HEMOGLOBIN 27.5 PG (27.0-34.0); MEAN CORPUSCULAR HGB CONC 32.3 % (32.0-36.0); PLATELET COUNT 185 TH/MM3 (150-450); RED BLOOD COUNT 3.72 MIL/MM3 (4.00-5.30); RED CELL DISTRIBUTION WIDTH 15.6 % (11.6-17.2); REVIEW FLAG FINAL; WHITE BLOOD COUNT 4.2 TH/MM3 (4.0-11.0)
[2016-12-23 08:31] LABS: BICARBONATE 22.8 MEQ/L (21.0-32.0); POTASSIUM 3.8 MEQ/L (3.5-5.1)
--- NOTE | 2016-12-23 09:00 | HHI.PR ---
Subjective Patient symptoms today Pt seen and examined. Feels well. Pain controlled. Objective Vital Signs Vital Signs Date Time Temp Pulse Resp B/P Pulse Ox O2 Delivery O2 Flow Rate FiO2 12/23/16 04:10 99.4 88 17 104/69 96 12/23/16 00:20 97 12/23/16 00:10 98.5 85 17 112/75 96 12/22/16 20:10 95.3 69 16 124/73 99 12/22/16 20:00 99 Room Air 12/22/16 17:50 97.3 76 15 126/83 97 Room Air 12/22/16 17:30 68 15 129/82 97 Room Air 12/22/16 17:15 83 15 122/90 97 Room Air 12/22/16 17:00 101 15 128/84 97 Nasal Cannula 3 12/22/16 16:45 98 15 142/86 98 Nasal Cannula 3 12/22/16 16:35 97.3 108 14 133/85 98 Nasal Cannula 3 12/22/16 09:52 97.8 86 20 109/69 100 Result Diagram: 12/23/1672412/23/1625 Objective Remarks Abd:soft,nt,nd Cates/PNCT: urine clear Medications and IVs Current Medications Medications (Trade) Dose Ordered Sig/Dennise Route Start Time Stop Time Status Last Admin (Dilaudid Pf Inj) 1 mg Q4H PRN IV PUSH 12/22/16 16:30 12/23/16 08:00 (Percocet 7.5-325 Mg) 1 tab Q6H PRN PO 12/22/16 16:30 12/22/16 18:35 (Tylenol 650 Mg/ 20 ml Liq) 650 mg Q6H PRN PO 12/22/16 16:30 (Zofran Inj) 4 mg Q6HR PRN IV PUSH 12/22/16 16:30 12/23/16 03:45 (Benadryl Inj) 25 mg Q6H PRN IV PUSH 12/22/16 16:30 (B & O Supp) 60 mg Q6HR PRN RECTAL 12/22/16 16:30 12/23/16 01:38 Miscellaneous Information ALL NURSING DEPARTME... UNSCH PRN .XX 12/22/16 17:15 12/23/16 17:14 Assessment and Plan Assessment and Plan Stable s/p Left PCNL; cystolithopaxy, and URS with laser litho. Reg. diet OOB to chair. Erick Galvin DO Dec 23, 2016 09:00
--- NOTE | 2016-12-23 09:29 | RADRPT ---
EXAM DATE/TIME: 12/23/2016 08:40 [facility] COMPARISON: ABDOMEN KUB ONLY, November 30, 2016, 12:14. INDICATIONS : Post left percutaneous nephrolithotomy, pain left flank MEDICAL HISTORY : Renal calculi. SURGICAL HISTORY : PCNL ENCOUNTER: Subsequent ACUITY: 2 days PAIN SCORE: 9/10 LOCATION: Left abdomen FINDINGS: Patient has a nephrostomy tube and a whistle tip catheter from bladder into renal pelvis. There are no residual stones identified. Scattered calcifications are seen in the pelvis that are probably phleboliths. No calcifications on the right. CONCLUSION: Status post removal of stone, stent and bladder stone. Krzysztof Mancilla MD FACR on December 23, 2016 at 9:14 Board Certified Radiologist. This report was verified electronically.
[2016-12-23] MEDS ORDERED: MORPHINE SULFATE 4 MG/ML INJ IV PRN (15:30)
[2016-12-24] VITALS: BP 112/76; PULSE 88; RESP 20; TEMP 99.7; O2SAT 98
[2016-12-24] MEDS: BELLADONNA ALKALOIDS/OPIUM 60 MG SUPP RECTAL PRN ×3 (00:31→20:27)
[2016-12-24] MEDS: HYDROmorphone HCL PF 1 MG/ML VIAL IV PUSH PRN ×3 (00:40→08:51)
[2016-12-24 05:57] LABS: HEMATOCRIT 33.1 % (35.0-46.0); MEAN CELL VOLUME 85.1 FL (80.0-100.0); MEAN CORPUSCULAR HEMOGLOBIN 27.5 PG (27.0-34.0); MEAN CORPUSCULAR HGB CONC 32.3 % (32.0-36.0); PLATELET COUNT 173 TH/MM3 (150-450); RED BLOOD COUNT 3.89 MIL/MM3 (4.00-5.30); RED CELL DISTRIBUTION WIDTH 15.7 % (11.6-17.2); REVIEW FLAG FINAL; WHITE BLOOD COUNT 5.4 TH/MM3 (4.0-11.0)
[2016-12-24 06:14] LABS: BICARBONATE 25.9 MEQ/L (21.0-32.0); POTASSIUM 3.9 MEQ/L (3.5-5.1)
[2016-12-24 08:00] VITALS: BP 115/69; PULSE 90; RESP 18; TEMP 98.7; O2SAT 98
--- NOTE | 2016-12-24 09:29 | HHI.PR ---
Subjective Patient symptoms today Pt feels well. Cates removed. Left PCNT clamped. Objective Vital Signs Vital Signs Date Time Temp Pulse Resp B/P Pulse Ox O2 Delivery O2 Flow Rate FiO2 12/24/16 00:00 99.7 88 20 112/76 98 12/23/16 20:00 99.0 87 16 109/65 98 12/23/16 18:34 96 21 12/23/16 16:00 97.4 87 16 118/72 96 12/23/16 12:00 99.1 89 16 104/64 96 Intake & Output 12/24/16 12/24/16 07:00 19:00 Intake Total 480 ml Output Total 1800 ml 350 ml Balance -1320 ml -350 ml Intake Oral 480 ml Output Urine Total 1100 ml 150 ml Drainage Total 700 ml 200 ml Result Diagram: 12/24/16 0455 12/24/16 0455 Objective Remarks Abd:soft,nt,nd Cates/PNCT: urine clear 12/24 Abd:soft,nt,nd Cates removed. Left PCNT; clamped. Medications and IVs Current Medications Medications (Trade) Dose Ordered Sig/Dennise Route Start Time Stop Time Status Last Admin (Percocet 7.5-325 Mg) 1 tab Q6H PRN PO 12/22/16 16:30 12/22/16 18:35 (Tylenol 650 Mg/ 20 ml Liq) 650 mg Q6H PRN PO 12/22/16 16:30 (Zofran Inj) 4 mg Q6HR PRN IV PUSH 12/22/16 16:30 12/23/16 03:45 (Benadryl Inj) 25 mg Q6H PRN IV PUSH 12/22/16 16:30 (B & O Supp) 60 mg Q6HR PRN RECTAL 12/22/16 16:30 12/24/16 00:31 Assessment and Plan Assessment and Plan Stable s/p Left PCNL; cystolithopaxy, and URS with laser litho. Reg. diet OOB to chair. 12/24 Stable s/p Left PCNL; cystolithopaxy, and URS with laser litho. Void trial today Left PCNT clamped. OOB Erick Galvin DO Dec 24, 2016 09:29
[2016-12-24 09:49] VITALS: O2SAT 97
[2016-12-24 12:00] VITALS: BP 108/67; PULSE 100; RESP 18; TEMP 98.8; O2SAT 98
[2016-12-24] MEDS: oxyCODONE/ACETAMINOPHEN 7.5 MG/325 MG TAB PO PRN ×3 (13:27→21:43)
[2016-12-24 16:00] VITALS: BP 103/57; PULSE 96; RESP 18; TEMP 98.5; O2SAT 100
[2016-12-24 19:45] VITALS: BP 121/69; PULSE 86; RESP 16; TEMP 98.1; O2SAT 98
[2016-12-25 00:15] VITALS: BP 104/67; PULSE 88; RESP 15; TEMP 98.3; O2SAT 96
[2016-12-25] MEDS: oxyCODONE/ACETAMINOPHEN 7.5 MG/325 MG TAB PO PRN ×2 (02:23→06:30)
[2016-12-25] MEDS: BELLADONNA ALKALOIDS/OPIUM 60 MG SUPP RECTAL PRN (05:35)
[2016-12-25 08:00] VITALS: BP 100/55; PULSE 87; RESP 18; TEMP 97.9; O2SAT 100
--- NOTE | 2016-12-25 09:39 | HHI.PR ---
Subjective Patient symptoms today Pt feels well. Objective Vital Signs Vital Signs Date Time Temp Pulse Resp B/P Pulse Ox O2 Delivery O2 Flow Rate FiO2 12/25/16 08:00 97.9 87 18 100/55 100 12/25/16 00:15 98.3 88 15 104/67 96 12/24/16 19:45 98.1 86 16 121/69 98 12/24/16 16:00 98.5 96 18 103/57 100 12/24/16 12:00 98.8 100 18 108/67 98 12/24/16 09:49 97 21 Result Diagram: 12/24/165 12/24/16454 Objective Remarks Abd:soft,nt,nd Cates/PNCT: urine clear 12/24 Abd:soft,nt,nd Cates removed. Left PCNT; clamped. 12/25 Abd:soft,nt,nd Voiding Left PCNT; clamped. Medications and IVs Current Medications Medications (Trade) Dose Ordered Sig/Dennise Route Start Time Stop Time Status Last Admin (Tylenol 650 Mg/ 20 ml Liq) 650 mg Q6H PRN PO 12/22/16 16:30 (Zofran Inj) 4 mg Q6HR PRN IV PUSH 12/22/16 16:30 12/23/16 03:45 (Benadryl Inj) 25 mg Q6H PRN IV PUSH 12/22/16 16:30 (B & O Supp) 60 mg Q6HR PRN RECTAL 12/22/16 16:30 12/25/16 05:35 (Percocet 7.5-325 Mg) 1 tab Q4H PRN PO 12/24/16 16:56 12/25/16 06:30 Assessment and Plan Assessment and Plan Stable s/p Left PCNL; cystolithopaxy, and URS with laser litho. Reg. diet OOB to chair. 12/24 Stable s/p Left PCNL; cystolithopaxy, and URS with laser litho. Void trial today Left PCNT clamped. OOB 12/25 Stable s/p Left PCNL; cystolithopaxy, and URS with laser litho. D/C home today Erick Galvin DO Dec 25, 2016 09:39
[2017-01-06] MEDS ORDERED: DIFL100T PO (10:25)
--- NOTE | 2017-01-23 08:50 | MD ---
cc: JESSE DOHERTY ADMISSION DATE: 12/22/2016 DISCHARGE DATE: 12/25/2016 BRIEF HISTORY Ms. Ceballos is a young female who had an encrusted left ureteral stent. There was a large left renal calculus and a large bladder stone. She was admitted to undergo left percutaneous nephrolithotomy as well as cystolitholapaxy and stent exchange. HOSPITAL COURSE She underwent a left percutaneous nephrolithotomy without difficulty and a cystolitholapaxy. All the stone fragments were removed and a ureteral catheter was inserted postoperatively as well as a Cates catheter. On hospital day #1 she was feeling well, tolerating a regular diet. Her pain was controlled. On day #2 she continued to have some pain but it was controlled and then on day #3 decision was made discharge the patient. She was voiding at the time and her catheters were removed. Her left percutaneous nephrostomy tube was still in place and she was scheduled followup in the office in a week to have that removed. She had uneventful course. Jesse PAZ/SSB /9:40 AM /8:49 AM
== END 2016-12-25 11:22 | disposition home or self-care (01) | DRG 655 ==
LOC: HSDC 09:13 → N06B 17:24
PROVIDERS: ADMIT Urology; ATTEND Urology
PROC: 0T7B8DZ Dilation of Bladder with Intraluminal Device, Via Natural or Artificial Opening Endoscopic (ICD-10-PCS; 2016-12-22)
PROC: 0TCB8ZZ Extirpation of Matter from Bladder, Via Natural or Artificial Opening Endoscopic (ICD-10-PCS; 2016-12-22)
PROC: 0TC13ZZ Extirpation of Matter from Left Kidney, Percutaneous Approach (ICD-10-PCS; principal; 2016-12-22 13:10)
DX: N20.2 Calculus of kidney with calculus of ureter (principal); N21.0 Calculus in bladder
CPT/HCPCS: 74000; 76000; 80048; 82370; 85025; 85027; 88300; 94150; C1726; C1769; J0131; J0290; J1170; J1580; J2175; J2250; J2270; J2405; J2710; J3010; J7120; Q9967

== ENCOUNTER → 2017-03-29 | Outpatient (CLI) | payer OTHER ==
[~2017-03-29] MED LIST changes: -BACT800T5 PO; -PERC7.5T13 PO
--- NOTE | 2017-03-29 14:24 | RADRPT ---
EXAM DATE/TIME: 03/29/2017 13:46 [facility] COMPARISON: No previous studies available for comparison. INDICATIONS : Left flank and left lower quadrant pain. ORAL CONTRAST: No oral contrast ingested. RADIATION DOSE: 4.04 CTDIvol (mGy) MEDICAL HISTORY : Renal calculi. Hyperthyroidism. SURGICAL HISTORY : None. ENCOUNTER: Initial ACUITY: 4 - 6 days PAIN SCALE: 6/10 LOCATION: Left flank TECHNIQUE: Volumetric scanning of the abdomen and pelvis was performed. Using automated exposure control and ad justment of the mA and/or kV according to patient size, radiation dose was kept as low as reasonably achievable to obtain optimal diagnostic quality images. DICOM format image data is available electro nically for review and comparison. FINDINGS: LOWER LUNGS: The visualized lower lungs are clear. LIVER: Homogeneous density without lesion. There is no dilation of the biliary tree. No calcified gallston es. SPLEEN: Normal size without lesion. PANCREAS: Within normal limits. KIDNEYS: There is an elongated 5-6 mm stone in the left renal pelvis. There is mild left hydronephrosis. The l eft ureter does not appear to be significantly dilated. There are bilateral pelvic calcifications whi ch look like phleboliths. There are areas of cortical lobulation and low density in the lower aspect of the left kidney which may reflect areas of scarring with or without associated cyst or mass. The r ight kidney is grossly unremarkable for noncontrast appearance. ADRENAL GLANDS: Within normal limits. VASCULAR: There is no aortic aneurysm. BOWEL/MESENTERY: The stomach, small bowel, and colon demonstrate no acute abnormality. There is no free intraperitone al air or fluid. ABDOMINAL WALL: Within normal limits. RETROPERITONEUM: There is no lymphadenopathy. BLADDER: No wall thickening or mass. REPRODUCTIVE: Within normal limits. INGUINAL: There is no lymphadenopathy or hernia. MUSCULOSKELETAL: Within normal limits for patient age. CONCLUSION: Stone in the left renal pelvis with mild left hydronephrosis. Abnormal appearance of the left kidney should probably be followed up with contrast examination on an elective basis. Vincent Cadena MD on March 29, 2017 at 14:14 Board Certified Radiologist. This report was verified electronically.
== END ==
LOC: HRAD 10:34
PROVIDERS: ATTEND Urology
DX: N20.0 Calculus of kidney (principal)
CPT/HCPCS: 74176

== ENCOUNTER → 2017-10-02 | Outpatient (CLI) | payer OTHER ==
--- NOTE | 2017-10-02 11:03 | RADRPT ---
EXAM DATE/TIME: 10/02/2017 10:45 [facility] COMPARISON: ABDOMEN KUB ONLY, December 23, 2016, 8:40. INDICATIONS : Patient states bilateral flank pain. MEDICAL HISTORY : Renal calculi. SURGICAL HISTORY : PCNL ENCOUNTER: Initial ACUITY: 1 week PAIN SCORE: 7/10 LOCATION: Bilateral Abdomen FINDINGS: Supine view of the abdomen was performed. The abdominal bowel gas pattern is normal. No abnormal ma sses, calcifications, or organomegaly is seen. The osseous structures are unremarkable. Phleboliths in pelvis. CONCLUSION: 1. No acute abnormalities. Julio Kaplan MD on October 02, 2017 at 11:00 Board Certified Radiologist. This report was verified electronically.
== END ==
LOC: HRAD 10:28
PROVIDERS: ATTEND Urology
DX: Z98.890 Other specified postprocedural states (principal); R10.9 Unspecified abdominal pain
CPT/HCPCS: 74018

== ENCOUNTER 2017-12-22 22:28 | Emergency (ER) | payer OTHER ==
[2017-12-22 22:44] VITALS: BP 112/70; PULSE 113; RESP 19; TEMP 99.4; O2SAT 99
[2017-12-22] MEDS ORDERED: OSEL75 PO (22:54)
[2017-12-22] MEDS ORDERED: PENI500T PO (22:54)
--- NOTE | 2017-12-22 22:58 | PD ---
HPI Chief Complaint: Cold / Flu Symptoms Time Seen by Provider: 22:52 Travel History International Travel<30 days: No Contact w/Intl Traveler<30days: No Traveled to known affect area: No History of Present Illness HPI 27-year-old black female presents emergency department with complaints of sore throat, congestion, cough, myalgias, arthralgias and general malaise. Her 2 children were diagnosed today with strep throat as well as influenza. She has been sick now for the past 24 hours. There are no alleviating factors. No exacerbating factors. She denies any nausea vomiting. No abdominal pain or diarrhea. No dysuria frequency. Symptoms are moderate. PFSH Past Medical History Narrative Medical Kidney stones Arthritis: No Cancer: No Cardiovascular Problems: No Diabetes: No Diminished Hearing: No Endocrine: No Gastrointestinal Disorders: No Genitourinary: Yes (NEPHROLITHIASIS) Hepatitis: No Hiatal Hernia: No Hypertension: No Immune Disorder: No Implanted Vascular Access Dvce: Yes Kidney Stones: Yes Medical other: No Musculoskeletal: No Neurologic: No Psychiatric: No Reproductive: No Respiratory: No Immunizations Current: No Seizures: No Thyroid Disease: No Ulcer: No Tetanus Vaccination: < 5 Years ?: Not : 5 Para: 4 Miscarriage: 1 : 0 Dilation and Curettage (D&C): Yes Past Surgical History Narrative Surgical Stent and removal of kidney stone Abdominal Surgery: No AICD: No Body Medical Devices: Left kidney stent Cardiac Surgery: No Ear Surgery: No Endocrine Surgery: No Eye Surgery: No Genitourinary Surgery: Yes (LEFT URETERAL STENT, LEFT NEPHROSTOMY TUBE) Gynecologic Surgery: Yes (D&C) Joint Replacement: No Neurologic Surgery: No Oral Surgery: No Pacemaker: No Thoracic Surgery: No Other Surgery: Yes (Left Kidney stent) Social History Alcohol Use: No Tobacco Use: Yes (< 1/2 PPD) Substance Use: No Allergies-Medications (Allergen,Severity, Reaction): Coded Allergies: peach (Unverified Allergy, Severe, "THROAT SWELLS; DIFFICULTY BREATHING", 12/22/17) Reported Meds & Prescriptions Reported Meds & Active Scripts Active Tamiflu (Oseltamivir Phosphate) 75 Mg Cap 75 Mg PO BID Penicillin V Potassium 500 Mg Tab 500 Mg PO Q8H 7 Days Reported Depo-Provera Inj (Medroxyprogesterone Inj) 150 Mg/Ml Inj 150 Mg IM Q90D Review of Systems General / Constitutional: Positive: Fever, Chills Eyes: No: Visual changes HENT: Positive: Sore Throat, Congestion, No: Headaches Cardiovascular: No: Chest Pain or Discomfort Respiratory: Positive: Cough, No: Shortness of Breath Gastrointestinal: No: Nausea, Vomiting, Diarrhea, Abdominal Pain Genitourinary: No: Dysuria Musculoskeletal: Positive: Myalgias, Arthralgias, Weakness, No: Pain Skin: No Rash Neurologic: No: Weakness Psychiatric: No: Depression Endocrine: No: Polydipsia Hematologic/Lymphatic: No: Easy Bruising Physical Exam Narrative GENERAL: Well-developed, well-nourished in no acute distress. Nontoxic appearing. HEAD: Normocephalic, atraumatic. EYES: Pupils equal round and reactive. Extraocular motions intact. No scleral icterus. No injection or drainage. ENT: TMs clear without erythema. The external auditory canals clear. Nose: clear . Posterior pharynx is pink and moist. No tonsillar edema or exudate. Uvula midline. Airway patent. NECK: Trachea midline.Supple, nontender, moves head freely. No central bony tenderness or spasm. CARDIOVASCULAR: Regular rate and rhythm without murmurs, gallops, or rubs. RESPIRATORY: Clear to auscultation. Breath sounds equal bilaterally. No wheezes , rales, or rhonchi. GASTROINTESTINAL: Abdomen soft, non-tender, nondistended. No hepato-splenomegaly , or palpable masses. No guarding. EXTREMITIES: No clubbing, cyanosis, or edema. No joint tenderness, effusion, or edema noted. BACK: Nontender without deformity or crepitance. No flank tenderness. Data Data Last Documented VS Vital Signs Date Time Temp Pulse Resp B/P (MAP) Pulse Ox O2 Delivery O2 Flow Rate FiO2 12/22/17 22:44 99.4 113 19 112/70 (84) 99 Orders Orders Ed Discharge Order (12/22/17 22:52) Amoxicillin (Trimox) (12/22/17 23:00) Oseltamivir (Tamiflu) (12/22/17 23:00) MDM Medical Decision Making Medical Screen Exam Complete: Yes Emergency Medical Condition: Yes Medical Record Reviewed: Yes Differential Diagnosis MDM: High Differential diagnoses: Pneumonia, bronchitis, URI, asthma, RAD, legionnaire's disease, SARS, ARDS, influenza, bronchiolitis, RSV,PE,CHF Narrative Course With the patient 2 children diagnosed with strep throat as well as influenza she will be treated symptomatically today without testing. She is given amoxicillin 500 mg p.o. and Tamiflu 75 mg p.o. This is presumptive influenza and strep throat Diagnosis Primary Impression: Influenza Additional Impression: strep throat Patient Instructions: General Instructions Additional Instructions: Rest. Increase fluids. Tylenol and Advil. Robitussin-DM. Tamiflu and Pen-Vee K. Followup with your Dr. in one week. Return to the ER for any problems. Med/Other Pt SpecificInfo: Prescription(s) given Scripts Oseltamivir (Tamiflu) 75 Mg Cap 75 MG PO BID for Mgmt Viral Infection, #9 CAP 0 Refills Prov: Luis Prieto MD 12/22/17 Penicillin V Potassium (Penicillin V Potassium) 500 Mg Tab 500 MG PO Q8H for Infection for 7 Days, #21 TAB 0 Refills Prov: Luis Prieto MD 12/22/17 Disposition: 01 DISCHARGE HOME Condition: Stable Alvaro Ma Dec 22, 2017 22:58
[2017-12-22] MEDS ORDERED: AMOXICILLIN (TRIHYDRATE) 500 MG CAP PO ONE (23:00)
[2017-12-22] MEDS ORDERED: OSELTAMIVIR PHOSPHATE 75 MG CAP PO ONE (23:00)
== END 2017-12-22 23:44 | disposition home or self-care (01) ==
LOC: NEPA 22:28
DX: J11.1 Influenza due to unidentified influenza virus with other respiratory manifestations (principal); F17.200 Nicotine dependence, unspecified, uncomplicated
CPT/HCPCS: 99283